=== PATIENT | male | born 1940 | race Caucasian/White ===

== ENCOUNTER 2020-05-27 11:32 | Outpatient (REF) | payer MEDICARE, OTHER, SELFPAY ==
[2020-05-27 13:52] LABS: MANUAL DIFF FLAG NO
[2020-05-27 13:57] LABS: Basophils Absolute Auto 0.1 X10*3/uL (0.0-0.2); Eosinophils Absolute Auto 0.2 X10*3/uL (0.0-0.4); Eosinophils Percent Auto 2.8 % (0-4); Hematocrit 42.4 % (42-52); Hemoglobin 13.7 g/dl (14.0-18.0); Imm Gran Abs Auto 0.03 X10*3/uL (0.00-0.03); Imm Gran Pct Auto 0.4 % (0.0-0.4); Lymphocytes Absolute Auto 1.9 X10*3/uL (1.2-4.9); Mean Corpuscular HGB Conc 32.3 g/dl (31.0-36.0); Mean Corpuscular Hemoglobin 29.7 pg (27.0-33.0); Mean Platelet Volume 11.9 fL (9.4-12.4); Monocytes Absolute Auto 0.6 X10*3/uL (0.1-1.2); Monocytes Percent Auto 7.7 % (2-11); Neutrophils Absolute Auto 5.4 X10*3/uL (2.0-8.3); Neutrophils Percent Auto 65.1 % (45-73); Platelet Count 263 X10*3/uL (160-400); Red Blood Count 4.61 X10*6/uL (4.60-5.80); Red Cell Distribution Width 12.9 % (11.0-16.0); White Blood Count 8.3 X10*3/uL (4.8-10.8)
[2020-05-27 14:27] LABS: Alanine Aminotransferase 9 U/L (0-40); Alkaline Phosphatase 52 U/L (39-117); Anion Gap 11 (12-20); Aspartate Amino Transferase 13 U/L (5-37); Bilirubin Total 0.6 mg/dL (0.0-1.0); Blood Urea Nitrogen 13 mg/dL (9-16); Calcium 8.8 mg/dL (8.4-10.2); Carbon Dioxide 29 mmol/L (22-29); Chloride 105 mmol/L (96-108); Estimated Glomerular Filt Rate > 60; Glucose Random 121 mg/dL (60-115); Potassium 3.9 mmol/l (3.3-5.1); Sodium 141 mmol/L (135-145); Total Protein 6.7 g/dL (6.5-8.0)
[2020-05-27 14:36] LABS: Free T4 (Free Thyroxine) 0.94 ng/dL (0.71-1.85)
[2020-05-27 14:44] LABS: Erythrocyte Sedimentation Rate 11 MM/HR (0-15)
== END 2020-05-27 11:33 | disposition home or self-care (01) ==
LOC: HO.10HDL 11:32
PROVIDERS: PCP Family Medicine; Visit Provider Family Medicine
DX: C61 Malignant neoplasm of prostate (principal); R41.0 Disorientation, unspecified; G62.9 Polyneuropathy, unspecified
CPT/HCPCS: 36415; 80053; 82550; 84439; 85025; 85652

== ENCOUNTER 2020-09-16 12:46 | Outpatient (REF) | payer MEDICARE, OTHER, SELFPAY ==
--- NOTE | ~2020-09-16 | MR_ITS ---
EXAMINATION: MR BRAIN WITHOUT CONTRAST CLINICAL INFORMATION: Confusion and tremors. COMPARISON: Head CT dated 09/28/2018. TECHNIQUE: Multiplanar, multisequence imaging of the brain was performed without contrast. FINDINGS: No diffusion abnormalities are identified to suggest an acute infarct. There is significant diffuse parenchymal volume loss with concordant ex vacuo dilatation of the ventricles. No evidence of hydrocephalus. No mass effect or midline shift is seen. The gradient refocused acquisition is normal. Extensive confluent T2 hyperintense signal changes are present throughout the cerebral white matter of both hemispheres, as on prior imaging. There are mild to moderate patchy areas of T2 hyperintense signal abnormality centrally in the sly. No extra-axial fluid collections are seen. The cerebellum is normal. The craniovertebral junction, marrow signal, and midline structures are normal. The major intracranial flow voids at the level of the [place] are preserved. The dural venous sinus flow voids are maintained. The mastoid air cells and paranasal sinuses are well aerated. Severe disc space narrowing and mild retrosubluxation partially visualized at the C3-C4 level. MR/MR head/brain wo con IMPRESSION: No acute intracranial process. Advanced chronic white matter disease and diffuse parenchymal volume loss with ex vacuo dilatation of the ventricles.
== END 2020-09-16 12:47 | disposition home or self-care (01) ==
LOC: HO.MRI 12:46
PROVIDERS: Visit Provider Family Medicine
DX: R27.0 Ataxia, unspecified (principal)
CPT/HCPCS: 70551

== ENCOUNTER 2020-12-11 12:10 | Outpatient (REF) | payer MEDICARE, OTHER, SELFPAY ==
[2020-12-11 13:24] LABS: Alanine Aminotransferase 9 U/L (0-40); Anion Gap 12 (12-20); Aspartate Amino Transferase 14 U/L (5-37); Blood Urea Nitrogen 11 mg/dL (9-16); Carbon Dioxide 29 mmol/L (22-29); Chloride 106 mmol/L (96-108); Estimated Glomerular Filt Rate > 60; Potassium 3.9 mmol/L (3.3-5.1); Sodium 143 mmol/L (135-145)
== END 2020-12-11 12:11 | disposition home or self-care (01) ==
LOC: HO.LAB 12:10
PROVIDERS: PCP Family Medicine; Visit Provider Family Medicine
DX: I10 Essential (primary) hypertension (principal); E78.00 Pure hypercholesterolemia, unspecified; Z79.899 Other long term (current) drug therapy
CPT/HCPCS: 36415; 80051; 82550; 82565; 84450; 84460; 84520

== ENCOUNTER 2021-03-20 12:01 | Outpatient (REF) | payer MEDICARE, OTHER, SELFPAY ==
[2021-03-20 14:23] LABS: Alanine Aminotransferase 13 U/L (0-40); Anion Gap 11 (12-20); Blood Urea Nitrogen 9 mg/dL (9-16); Carbon Dioxide 30 mmol/L (22-29); Chloride 106 mmol/L (96-108); Estimated Glomerular Filt Rate > 60; Potassium 4.1 mmol/L (3.3-5.1); Sodium 143 mmol/L (135-145)
== END 2021-03-20 12:02 | disposition home or self-care (01) ==
LOC: HO.10HDL 12:01
PROVIDERS: Visit Provider Family Medicine
DX: I10 Essential (primary) hypertension (principal); E78.00 Pure hypercholesterolemia, unspecified; Z79.899 Other long term (current) drug therapy
CPT/HCPCS: 36415; 80051; 82550; 82565; 84460; 84520

== ENCOUNTER 2021-08-24 12:15 | Outpatient (REF) | payer MEDICARE, OTHER, SELFPAY ==
[2021-08-24 13:31] LABS: MANUAL DIFF FLAG NO
[2021-08-24 13:44] LABS: Basophils Absolute Auto 0.1 X10*3/uL (0.0-0.2); Basophils Percent Auto 0.8 % (0-2); Eosinophils Absolute Auto 0.3 X10*3/uL (0.0-0.4); Eosinophils Percent Auto 2.5 % (0-4); Hematocrit 42.4 % (42.0-52.0); Hemoglobin 13.1 g/dl (14.0-18.0); Imm Gran Abs Auto 0.04 X10*3/uL (0.00-0.03); Imm Gran Pct Auto 0.4 % (0.0-0.4); Lymphocytes Percent Auto 17.9 % (20-40); Mean Corpuscular HGB Conc 30.9 g/dl (31.0-36.0); Mean Corpuscular Hemoglobin 28.1 pg (27.0-33.0); Mean Platelet Volume 12.1 fL (9.4-12.4); Monocytes Percent Auto 8.7 % (2-11); Neutrophils Absolute Auto 7.9 x10*3/uL (2.0-8.3); Neutrophils Percent Auto 69.7 % (45-73); Platelet Count 286 X10*3/uL (160-400); Red Blood Count 4.66 X10*6/uL (4.60-5.80); Red Cell Distribution Width 13.8 % (11.0-16.0); White Blood Count 11.3 X10*3/uL (4.8-10.8)
[2021-08-24 13:55] LABS: Anion Gap 12 (12-20); Blood Urea Nitrogen 12 mg/dL (9-16); Carbon Dioxide 28 mmol/L (22-29); Chloride 107 mmol/L (96-108); Estimated Glomerular Filt Rate > 60; Potassium 4.1 mmol/L (3.3-5.1); Sodium 143 mmol/L (135-145)
== END 2021-08-24 12:16 | disposition home or self-care (01) ==
LOC: HO.10HDL 12:15
PROVIDERS: Visit Provider Family Medicine
DX: I10 Essential (primary) hypertension (principal); R53.1 Weakness
CPT/HCPCS: 36415; 80051; 82565; 84520; 85025

== ENCOUNTER 2021-12-06 10:09 | Emergency (ER) | payer MEDICARE, OTHER, SELFPAY ==
--- NOTE | ~2021-12-06 | XR_ITS ---
EXAMINATION: XR CHEST CLINICAL INFORMATION: Weakness COMPARISON: 10/31/2017 TECHNIQUE: Frontal view of the chest was obtained. FINDINGS: Lungs are hypoinflated. Compared to the prior study, there are new scattered patchy opacities seen which may be secondary to multifocal subtle infiltrates or possibly atelectasis. Some of the findings are accentuated by the patient's hypoinflation. The heart is enlarged. No gross CHF. No pleural effusions. XR/XR chest 1V IMPRESSION: Peripheral inflated lungs with scattered patchy opacities as described above.
--- NOTE | ~2021-12-06 | CT_ITS ---
EXAMINATION: CT HEAD WITHOUT CONTRAST CLINICAL INFORMATION: Weakness COMPARISON: MR 09/16/2020. CT 09/28/2018. TECHNIQUE: Contiguous axial imaging was performed from the skull base to vertex without intravenous administration of contrast. This CT examination was performed using dose optimization techniques as appropriate, variously including the following: *Automated exposure control *Adjustment of mA and/or kV according to patient size (this includes techniques or standardized protocols for targeted exams where dose is matched to indication/reason for exam; i.e. extremities or head) *Use of iterative reconstruction technique DLP: 1314 mGy-cm FINDINGS: Chronic symmetric prominence of the ventricles and sulcal spaces. No mass effect or shift of midline structures. 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 No evidence of acute territorial infarction. No acute hemorrhage. No abnormal intra or extra-axial collection. Atherosclerotic peripheral vascular disease. No acute fracture. The paranasal sinuses and mastoid air cells are clear. CT/CT head/brain wo con IMPRESSION: No acute intracranial pathology.
[2021-12-06 10:28] VITALS: BP 152/92; PULSE 72; PULSE 76; RESP 16; TEMP 36.2; O2SAT 97; O2SAT 98; BMI 30.8
[2021-12-06 11:04] VITALS: BP 165/75; PULSE 63; RESP 12; O2SAT 95
--- NOTE | 2021-12-06 11:19 | ECG_ITS ---
Test Reason : WEAKNESS Blood Pressure : / mmHG Vent. Rate : 057 BPM Atrial Rate : 057 BPM P-R Int : 402 ms QRS Dur : 106 ms QT Int : 450 ms P-R-T Axes : -01 -36 022 degrees QTc Int : 438 ms Sinus bradycardia with 1st degree A-V block Left axis deviation Nonspecific ST and T wave abnormality Abnormal ECG When compared with ECG of 10-NOV-2018 10:30, MA interval has increased Vent. rate has decreased BY 28 BPM Referred By: Luna Nelson Electronically Signed By:CRAIG HARMAN
--- NOTE | 2021-12-06 11:28 | ED.GENADULT ---
HPI - General Adult General Chief complaint: General Medical Stated complaint: FALL FROM LOSS OF BAL,UNABLE TO GET UP PER Time Seen by Provider: 12/06/21 11:11 Source: family and EMS Mode of arrival: EMS Limitations: altered mental status History of Present Illness HPI narrative: 81-year-old male with a history of dementia here with reports of progressive weakness over the last 1 week. Patient had 2 slips out of his recliner today and the was unable to get him back into bed requiring lift assist. She denies any recent fevers, chills, cough, vomiting, diarrhea, chest pain or shortness of breath. Patient is at his mental status baseline. Radha is seeking possible short-term rehab placement Related Data Home Medications Medication Instructions Recorded Confirmed aspirin 81 mg tablet,delayed 81 mg PO DAILY 12/06/21 12/06/21 release cyanocobalamin (vitamin B-12) 1,000 mcg PO DAILY 12/06/21 12/06/21 1,000 mcg tablet donepezil 5 mg tablet 1 tab PO DAILY@1900 12/06/21 12/06/21 famotidine 40 mg tablet 1 tab PO BEDTIME 12/06/21 12/06/21 losartan 50 mg tablet 1 tab PO DAILY 12/06/21 12/06/21 metoprolol succinate 50 mg 1 tab PO DAILY 12/06/21 12/06/21 tablet,extended release 24 hr quetiapine 25 mg tablet 1 tab PO DAILY@0900,1600 12/06/21 12/06/21 simvastatin 40 mg tablet 1 tab PO DAILY 12/06/21 12/06/21 Allergies Allergy/AdvReac Type Severity Reaction Status Date / Time No Known Allergies Allergy Unverified 02/28/20 15:20 [No Known Allergies*] Review of Systems Review of Systems: Yes all other systems are reviewed and are negative Constitutional: Constitutional: Reports no additional constitutional complaints, Denies body ache(s), Denies chills, Denies fever(s), Denies headache(s) and Reports weakness Eyes: Eyes: Reports no additional eye complaints and Denies change in vision ENT: Reports system reviewed and no additional complaints, except as documented, Denies dizziness, Denies headache(s), Denies nasal congestion, Denies nasal discharge and Denies neck pain Cardiovascular: Cardiovascular: Reports no additional cardiovascular complaints, Denies chest pain, Denies leg edema and Denies dyspnea Respiratory: Respiratory: Reports no additional respiratory complaints, Denies cough and Denies dyspnea Gastrointestinal: Gastrointestinal: Reports no additional gastrointestinal complaints, Denies abdominal pain, Denies diarrhea, Denies nausea and Denies vomiting Genitourinary: Genitourinary: Denies urinary incontinence Musculoskeletal: Musculoskeletal: Reports no additional musculoskeletal complaints, Denies back pain, Denies arthralgias, Denies joint swelling, Denies neck pain, Denies numbness and Denies tingling Integumentary/Breasts: Skin/Breast: Reports system reviewed and no additional complaints, except as docu and Denies rash Neurologic: Reports system reviewed and no additional complaints, except as documented, Reports confusion, Denies dizziness, Denies headache(s), Denies numbness, Denies tingling and Reports weakness Psychiatric: Psychiatric: Reports confusion PMFSH Past Medical History Attestation statement: The following information was validated with the patient. Source: old records reviewed and nursing notes reviewed Social History Social History Advance Directives: Yes Advance Directives Information Provided: No Advance Directives on File: No Physical Exam ED Vital Signs: Vital Signs - 24 hr 12/07/21 08:04 12/07/21 09:43 12/07/21 10:48 Temperature 97.1 F 97.7 F Pulse Rate 54 42 L 45 L Respiratory Rate 18 16 Blood Pressure 130/93 H 130/59 L 153/76 H Pulse Oximetry 92 96 91 L Oxygen Delivery Method Room Air Room Air Room Air 12/07/21 15:55 12/07/21 20:04 12/07/21 22:18 Temperature 97.8 F 98.6 F 98.9 F Pulse Rate 55 61 64 Respiratory Rate 16 20 16 Blood Pressure 124/69 158/88 H 151/60 H Pulse Oximetry 96 94 95 Oxygen Delivery Method Room Air Room Air Room Air 12/08/21 05:26 12/08/21 07:19 Temperature 98 F 97.7 F Pulse Rate 86 76 Respiratory Rate 20 Blood Pressure 121/101 H Pulse Oximetry 96 97 Oxygen Delivery Method Room Air Room Air BMI result Body Mass Index 30.8 Const General: cooperative, healthy appearing, comfortable, alert and confusion Orientation/consciousness: oriented to person, oriented to place and confusion Limitations: altered mental status [facility] Head: Yes normal to inspection Ears: hearing grossly normal bilaterally Eyes General: appearance normal, both eyes and all related structures Pupils: Equal, round and reactive pupils present Neck Neck: Yes normal visual inspection, Yes full ROM and Yes no lymphadenopathy Chest Chest palpation & inspection: normal inspection of the chest Resp Effort & Inspection: normal respiratory effort Auscultation: clear to auscultation bilaterally Cardio Rate: regular rate Rhythm: regular rhythm Peripheral pulses: Peripheral pulses 2+ throughout GI Inspection: Yes normal to inspection Palpation (GI): Soft to palpation and nontender Back/Spine/Pelvis Thoracic/Lumbar Spine: thoracic and lumbar spine normal to inspection Skin General skin exam: no rashes or lesions noted Neuro General: oriented to person, oriented to place, confusion and Unable to assess gait Cranial nerves: Yes CN's II-XII intact bilaterally, Yes Equal, round and reactive pupils present, Yes Bilaterally intact EOM present, Yes Nystagmus not present, Yes Normal facial strength present and Yes Midline tongue present Cognition (Neuro): normal cognition Gait exam (Neuro): Unable to assess gait Motor exam (neuro): 5/5 motor strength present throughout Sensory Exam: Normal double simultaneous stimulation for sensation Extrem General: Yes normal to inspection Course Course Course Narrative: 1600-labs showed no acute finding. UA is negative for infection. Chest x-ray shows increased bronchial markings consistent with mild interstitial edema versus pneumonitis. Patient has no reports of shortness of breath, cough, fever. No leg swelling or leg pain. His vitals are stable. His CT of his brain shows some atrophy otherwise there is no acute abnormality. Medications were reconciled. Patient's does not feel like she can care for him at home and she is requesting physical therapy evaluation, case management involvement and possible short-term rehab placement. Consult or place. Patient was placed in physician observation pending disposition Medical Decision Making MDM Narrative Medical decision making narrative: 81 yo male here with generalized weakness progressive over the last week w/ concern inability to care for him at home. Normal neuro exam. No overt deficits. Vitals are stable. Will check labs, chest x-ray, EKG, UA, CT head Medical Records Medical records reviewed: Yes I reviewed the patient's medical records. Lab Data Lab results reviewed: Yes I reviewed the patient's lab results. Result diagrams: 12/06/21 12:01 12/06/21 12:02 Labs: Lab Results 12/06/21 12/06/21 12/06/21 Range/Units 11:54 11:56 12:01 WBC 10.8 (4.8-10.8) X10*3/uL RBC 4.56 L (4.60-5.80) X10*6/uL Hgb 13.1 L (14.0-18.0) g/dl Hct 40.6 L (42.0-52.0) % MCV 89.0 (80.0-98.0) fL MCH 28.7 (27.0-33.0) pg MCHC 32.3 (31.0-36.0) g/dl RDW 13.4 (11.0-16.0) % Plt Count 215 (160-400) X10*3/uL MPV 11.2 (9.4-12.4) fL Immature Gran % (Auto) 0.3 (0.0-0.4) % Neut % (Auto) 74.4 H (45-73) % Lymph % (Auto) 13.9 L (20-40) % [place] % (Auto) 8.4 (2-11) % Eos % (Auto) 2.4 (0-4) % Baso % (Auto) 0.6 (0-2) % Lymph # (Auto) 1.5 (1.2-4.9) X10*3/uL [place] # (Auto) 0.9 (0.1-1.2) X10*3/uL Eos # (Auto) 0.3 (0.0-0.4) X10*3/uL Baso # (Auto) 0.1 (0.0-0.2) X10*3/uL Abs Immat Gran (auto) 0.03 (0.00-0.03) X10*3/uL Absolute Neuts (auto) 8.0 (2.0-8.3) x10*3/uL Absolute Nucleated RBC 0.000 (0.0-0.012) X10*3/uL Nucleated RBC % (auto) 0.0 (0.0-0.2) /100WBC Sodium (135-145) mmol/L Potassium (3.3-5.1) mmol/L Chloride (96-108) mmol/L Carbon Dioxide (22-29) mmol/L Anion Gap (12-20) BUN (9-16) mg/dL Creatinine (0.5-1.4) mg/dL Estim Creat Clear Calc Estimated GFR Random Glucose (60-115) mg/dL Calcium (8.4-10.2) mg/dL Magnesium (1.6-2.6) mg/dL Total Bilirubin (0.0-1.0) mg/dL Direct Bilirubin (0.0-0.5) mg/dL AST (5-37) U/L ALT (0-40) U/L Alkaline Phosphatase (39-117) U/L Troponin I High Sens (<3.5-35.0) ng/L Total Protein (6.5-8.0) g/dL Albumin (3.5-5.0) g/dL Urine Color YELLOW Urine Appearance CLEAR Urine pH 6.0 (5.0-8.0) Ur Specific [place] 1.010 (1.005-1.025) Urine Protein NEG (NEG-TRACE) MG/DL Urine Glucose (UA) NEG (NEG) MG/DL Urine Ketones NEG (NEG) MG/DL Urine Blood NEG (NEG) Urine Nitrite NEG (NEG) Ur Leukocyte Esterase NEG (NEG) COVID-19 (MENG) Negative (Negative) COVID-19 Clin Com See Note 12/06/21 12/06/21 Range/Units 12:01 12:02 WBC (4.8-10.8) X10*3/uL RBC (4.60-5.80) X10*6/uL Hgb (14.0-18.0) g/dl Hct (42.0-52.0) % MCV (80.0-98.0) fL MCH (27.0-33.0) pg MCHC (31.0-36.0) g/dl RDW (11.0-16.0) % Plt Count (160-400) X10*3/uL MPV (9.4-12.4) fL Immature Gran % (Auto) (0.0-0.4) % Neut % (Auto) (45-73) % Lymph % (Auto) (20-40) % [place] % (Auto) (2-11) % Eos % (Auto) (0-4) % Baso % (Auto) (0-2) % Lymph # (Auto) (1.2-4.9) X10*3/uL [place] # (Auto) (0.1-1.2) X10*3/uL Eos # (Auto) (0.0-0.4) X10*3/uL Baso # (Auto) (0.0-0.2) X10*3/uL Abs Immat Gran (auto) (0.00-0.03) X10*3/uL Absolute Neuts (auto) (2.0-8.3) x10*3/uL Absolute Nucleated RBC (0.0-0.012) X10*3/uL Nucleated RBC % (auto) (0.0-0.2) /100WBC Sodium 142 (135-145) mmol/L Potassium 3.9 (3.3-5.1) mmol/L Chloride 106 (96-108) mmol/L Carbon Dioxide 29 (22-29) mmol/L Anion Gap 11 L (12-20) BUN 10 (9-16) mg/dL Creatinine 0.78 (0.5-1.4) mg/dL Estim Creat Clear Calc 96.9 Estimated GFR > 60 Random Glucose 90 (60-115) mg/dL Calcium 8.7 (8.4-10.2) mg/dL Magnesium 2.1 (1.6-2.6) mg/dL Total Bilirubin 0.6 (0.0-1.0) mg/dL Direct Bilirubin 0.3 (0.0-0.5) mg/dL AST 10 (5-37) U/L ALT 12 (0-40) U/L Alkaline Phosphatase 58 (39-117) U/L Troponin I High Sens 6.5 (<3.5-35.0) ng/L Total Protein 6.3 L (6.5-8.0) g/dL Albumin 3.7 (3.5-5.0) g/dL Urine Color Urine Appearance Urine pH (5.0-8.0) Ur Specific [place] (1.005-1.025) Urine Protein (NEG-TRACE) MG/DL Urine Glucose (UA) (NEG) MG/DL Urine Ketones (NEG) MG/DL Urine Blood (NEG) Urine Nitrite (NEG) Ur Leukocyte Esterase (NEG) COVID-19 (MENG) (Negative) COVID-19 Clin Com ECG Data Attestation: I personally reviewed and interpreted this ECG as follows: Interpretation: Sinus bradycardia with first-degree AV block, rate of 57, normal QRS, normal QT Discharge Plan Discharge Clinical Impression: Weakness Patient Disposition: Still a Patient Prescriptions: No Action losartan 50 mg tablet 1 tab PO DAILY quetiapine 25 mg tablet 1 tab PO DAILY@0900,1600 donepezil 5 mg tablet 1 tab PO DAILY@1900 metoprolol succinate 50 mg tablet extended release 24 hr 1 tab PO DAILY famotidine 40 mg tablet 1 tab PO BEDTIME simvastatin 40 mg tablet 1 tab PO DAILY cyanocobalamin (vitamin B-12) 1,000 mcg Tablet 1,000 mcg PO DAILY aspirin 81 mg Tablet,Delayed Release (Dr/Ec) 81 mg PO DAILY
[2021-12-06 12:07] LABS: MANUAL DIFF FLAG NO
[2021-12-06 12:08] VITALS: BP 176/79; PULSE 59; RESP 12
[2021-12-06 12:08] LABS: Appearance Urine CLEAR; Color Urine YELLOW; Glucose Urine UA NEG (NEG); Leukocyte Esterase Urine NEG (NEG); Nitrite Urine NEG (NEG); Urine Blood NEG (NEG); Urine Ketones NEG (NEG); Urine Protein NEG (NEG-TRACE)
[2021-12-06 12:08] LABS: Basophils Absolute Auto 0.1 X10*3/uL (0.0-0.2); Basophils Percent Auto 0.6 % (0-2); Eosinophils Absolute Auto 0.3 X10*3/uL (0.0-0.4); Eosinophils Percent Auto 2.4 % (0-4); Hematocrit 40.6 % (42.0-52.0); Hemoglobin 13.1 g/dl (14.0-18.0); Imm Gran Abs Auto 0.03 X10*3/uL (0.00-0.03); Imm Gran Pct Auto 0.3 % (0.0-0.4); Lymphocytes Absolute Auto 1.5 X10*3/uL (1.2-4.9); Lymphocytes Percent Auto 13.9 % (20-40); Mean Corpuscular HGB Conc 32.3 g/dl (31.0-36.0); Mean Corpuscular Hemoglobin 28.7 pg (27.0-33.0); Mean Platelet Volume 11.2 fL (9.4-12.4); Monocytes Absolute Auto 0.9 X10*3/uL (0.1-1.2); Monocytes Percent Auto 8.4 % (2-11); Neutrophils Percent Auto 74.4 % (45-73); Platelet Count 215 X10*3/uL (160-400); Red Blood Count 4.56 X10*6/uL (4.60-5.80); Red Cell Distribution Width 13.4 % (11.0-16.0); White Blood Count 10.8 X10*3/uL (4.8-10.8)
[2021-12-06 12:25] LABS: Alanine Aminotransferase 12 U/L (0-40); Albumin Level 3.7 g/dL (3.5-5.0); Alkaline Phosphatase 58 U/L (39-117); Anion Gap 11 (12-20); Aspartate Amino Transferase 10 U/L (5-37); Bilirubin Direct 0.3 mg/dL (0.0-0.5); Bilirubin Total 0.6 mg/dL (0.0-1.0); Blood Urea Nitrogen 10 mg/dL (9-16); Calcium 8.7 mg/dL (8.4-10.2); Carbon Dioxide 29 mmol/L (22-29); Chloride 106 mmol/L (96-108); Creatinine Clr Calc Pharmacy 96.9; Estimated Glomerular Filt Rate > 60; Glucose Random 90 mg/dL (60-115); Magnesium 2.1 mg/dL (1.6-2.6); Potassium 3.9 mmol/L (3.3-5.1); Sodium 142 mmol/L (135-145); Total Protein 6.3 g/dL (6.5-8.0)
[2021-12-06 12:27] LABS: COVID-19 Test Negative (Negative); IDNOW Serial# 16C4AD1C
[2021-12-06 12:31] LABS: Troponin-I High Sensitivity 6.5 ng/L (<3.5-35.0)
--- NOTE | 2021-12-06 14:14 | PHA.MEDREC ---
Pharmacy Consult ? Medication Reconciliation Pharmacy has completed the medication reconciliation. PT's at bedtime with medication list, made me aware of specific times she gives the pt meds.
[2021-12-06 15:36] VITALS: BP 169/81; PULSE 70; RESP 16; TEMP 36.4; O2SAT 94
--- NOTE | 2021-12-06 15:48 | MHC.CM.ED ---
Received case management consult from Luna RAMOS. Patient came to the ER due to a fall. Work up essentially negative. Physical therapy eval is pending at this time. Patient has a history of dementia. Attempted to meet with patient and . just left the ER. Patient's son Neri is currently bedside. PCP verified. Copy of HCP verified to be on file. Patient's is 1st proxy. Patient's son Cristhian is 2nd. However, Cristhian has . Patient has received 4 Moderna vaccines. T/W explained physical therapy eval would not be available until tomorrow. List of facilities within 10 miles of patient's home. Neri will provide this list to his mother and provide 2 facility choices to case management. Continue to monitor for d/c needs.
[2021-12-06] MEDS: QUEtiapine Fumarate 25 MG TABLET PO (16:08)
--- NOTE | 2021-12-06 16:08 | PC.NURSE ---
Pt becoming agitated with staff and family. Refusing assistance and attempting to leave bed, unable to redirect. Pt ambulated back to bed with staff assist, becoming more redirectable, still agitated but resting comfortable with no apparent distress.
[2021-12-06] MEDS: Donepezil HCl 5 MG TABLET PO (19:03)
[2021-12-06 23:21] VITALS: BP 175/84; PULSE 62; RESP 16; TEMP 37.1; O2SAT 97
[2021-12-06] MEDS: Famotidine 20 MG TABLET 40 MG PO (23:46)
[2021-12-07] VITALS (9 sets, daily range): BP systolic 124–166; BP diastolic 59–93; PULSE 42–70; RESP 16–20; TEMP 36.2–37.2; O2SAT 91–96
[2021-12-07] MEDS: OLANZapine 5 MG TABLET PO (00:20)
--- NOTE | 2021-12-07 01:43 | PC.NURSE ---
PT INCONTINENT OF URINE AND SMALL AMOUNT OF STOOL. PT CLEANED AND BEDDING CHANGED. RN AWARE
[2021-12-07] MEDS: Metoprolol Succinate ER 50 MG TAB.ER.24H PO (09:46)
[2021-12-07] MEDS: Cyanocobalamin (Vitamin B-12) 1,000 MCG TABLET 1000 MCG PO (09:46)
[2021-12-07] MEDS: Aspirin Enteric Coated 81 MG TABLET.DR PO (09:46)
[2021-12-07] MEDS: Losartan Potassium 50 MG TABLET PO (09:46)
[2021-12-07] MEDS: Atorvastatin Calcium 20 MG TABLET PO (09:46)
[2021-12-07] MEDS: QUEtiapine Fumarate 25 MG TABLET PO (09:49)
--- NOTE | 2021-12-07 11:09 | MHC.CM.ED ---
Addendum entered by Bozena Denise 12/07/21 14:09: Pt has been accepted by [facility] for a 12/08 transfer date. Pt and spouse updated and accepted offer. Pt to board in ED tonight pending transfer tomorrow. ED care team updated Original Note: PT eval recommending [facility]. Informed pt who states he is unfamiliar with [facility]. Call placed to pt's spouse to inquire on choices. She would like [facility] but is open to other [place] facilities if needed. Broad referrals placed - waiting for acceptance
--- NOTE | 2021-12-07 15:57 | PC.NURSE ---
UPON ROUNDING PATIENT WAS INC OF URINE ,BED BATH GIVEN ,BEGGING CHANGE ,PATIENT CONTINUE TO SLEEP .
--- NOTE | 2021-12-07 16:34 | PC.NURSE ---
patient had a medium bowel movement ,care given ,[place] catheter in place .
--- NOTE | 2021-12-07 17:01 | MHC.CM.ED ---
[facility] will accept pt for 12/08 at 1 pm. BLS booked for 1pm with [facility]. [facility] and CM/ED worksheet on chart. , RN and MD aware. CM to follow for d/c needs.
--- NOTE | 2021-12-07 17:55 | PC.NURSE ---
Pt is very somnolent. Evening seroquil held.
--- NOTE | 2021-12-07 18:55 | PC.NURSE ---
Addendum entered by Augusta Sanchez 12/08/21 07:01: report given to MORELIA Mills Addendum entered by Augusta Sanchez 12/07/21 20:01: pt resting in bed. alert and oriented to self. no signs of acute distress notice. breathing equally unlabored Original Note: report received from MORELIA Jung.
--- NOTE | 2021-12-07 19:24 | PC.NURSE ---
patient was a 1:1 feed ate 50 % of meal ,drank 240 ml milk .
--- NOTE | 2021-12-07 19:45 | PC.NURSE ---
PATIENT IS AWAKE VERY RESTLESS AT THIS TIME ,RN AWARE .
[2021-12-07] MEDS: Famotidine 20 MG TABLET 40 MG PO (20:09)
[2021-12-07] MEDS: Donepezil HCl 5 MG TABLET PO (20:09)
--- NOTE | 2021-12-07 22:06 | PC.NURSE ---
Pt found in bed incontinent of urine with [place] catheter removed and on the floor. Pt cleaned with linens and peter changed. Pt resting comfortably at this time time with no complaints. Pt is oriented to person and place.
--- NOTE | 2021-12-07 22:19 | PC.NURSE ---
PATIENT HAD A [place] CAT IN PLACE PATIENT REMOVE IT ,WAS INC OF URINE CARE GIVEN ,PATIENT NOW RESTING AND WATCHING TELEVISION .
[2021-12-08] MEDS: QUEtiapine Fumarate 25 MG TABLET PO ×2 (02:10→07:45)
[2021-12-08 05:26] VITALS: BP 121/101; PULSE 86; RESP 20; TEMP 36.6; O2SAT 96
[2021-12-08 07:19] VITALS: PULSE 76; TEMP 36.5; O2SAT 97
[2021-12-08] MEDS: OLANZapine 5 MG TABLET 2.5 MG PO (07:30)
--- NOTE | 2021-12-08 07:31 | PC.NURSE ---
Offered breakfast and pt declined. Pt remains confused but redirectable.
[2021-12-08] MEDS: Atorvastatin Calcium 20 MG TABLET PO (07:34)
[2021-12-08] MEDS: Metoprolol Succinate ER 50 MG TAB.ER.24H PO (07:35)
[2021-12-08] MEDS: Cyanocobalamin (Vitamin B-12) 1,000 MCG TABLET 1000 MCG PO (07:35)
[2021-12-08] MEDS: Losartan Potassium 50 MG TABLET PO (07:36)
--- NOTE | 2021-12-08 11:04 | MHC.CM.ED ---
Patient remains in ER. Patient will transfer to [facility] via BLS at 1pm. Patient, , Lina THIBODEAUX and Dr Angela castaneda. Continue to monitor for d/c needs.
--- NOTE | 2021-12-08 12:57 | PC.NURSE ---
attempted to call DORINA RN to call this RN back
== END 2021-12-08 13:01 | disposition skilled nursing facility (03) ==
PROVIDERS: Nurse Practitioner Family; Emergency Provider Emergency Medicine Emergency Medical Services; PCP Family Medicine
DX: R53.1 Weakness (principal); R45.1 Restlessness and agitation; F03.90 Unspecified dementia, unspecified severity, without behavioral disturbance, psychotic disturbance, mood disturbance, and anxiety; Z79.899 Other long term (current) drug therapy; Z20.822 Contact with and (suspected) exposure to COVID-19
CPT/HCPCS: 70450; 71045; 80048; 80076; 81003; 83735; 84484; 85025; 87635; 93005; 97162; 99284; 99285

== ENCOUNTER 2022-04-25 05:00 | Emergency (ER) | payer MEDICARE, OTHER, SELFPAY ==
--- NOTE | ~2022-04-25 | CT_ITS ---
EXAMINATION: CT OF THE HEAD WITHOUT CONTRAST CT OF THE CERVICAL SPINE WITHOUT CONTRAST CLINICAL INFORMATION: Unwitnessed fall. COMPARISON: CT scan of the head dated 12/06/2021. TECHNIQUE: Contiguous axial imaging was performed from the skullbase to vertex without intravenous administration of contrast. Coronal reformations of the head were obtained. Contiguous axial imaging was then performed from the skull base down to the thoracic inlet. Coronal and sagittal reformations of the cervical spine were obtained. This CT examination was performed using dose optimization techniques as appropriate, variously including the following: *Automated exposure control *Adjustment of mA and/or kV according to patient size (this includes techniques or standardized protocols for targeted exams where dose is matched to indication/reason for exam; i.e. extremities or head) *Use of iterative reconstruction technique DLP: 1364.66 mGy-cm. FINDINGS: CT scan of the head: Evaluation is significantly limited by beam hardening and motion artifact. In this setting, significant findings may be missed. There is no definite evidence of acute intracranial hemorrhage or territorial infarction. No abnormal mass-effect or midline shift is seen. Ward to white matter differentiation is well preserved. No extra-axial fluid collections are identified. The ventricles and sulci are enlarged. There is extensive periventricular and deep white matter low-attenuation seen, consistent with ischemic small vessel disease. Prominent hypodensity is seen in the syl, likely artifactual, though subtle infarct is difficult to exclude. The osseous structures and soft tissues are normal. The mastoid air cells and visualized portions of the paranasal sinuses are well-aerated. CT scan of the cervical spine: Evaluation is significantly limited by beam hardening and motion artifact. In this setting, significant findings may be missed. Normal alignment is seen with no evidence of acute fracture or dislocation. Craniocervical junction and atlantoaxial articulations are intact. Prevertebral soft tissues are normal in thickness. There is severe degenerative disc disease at C3-C4 with grade 1 retrolisthesis of C3 on C4. There is also severe degenerative disc disease with near complete loss of the disc space height at C6-C7 with small posterior disc osteophyte complex seen projecting into the thecal sac. The included soft tissues of the neck and lung apices are unremarkable. CT/CT cervical spine wo IV con IMPRESSION: HEAD: 1. Significantly limited exam due to beam hardening and motion artifact. In this setting, significant findings may be missed. 2. No definite acute intracranial pathology. 3. Extensive periventricular and deep white matter low-attenuation, consistent with ischemic small vessel disease. Prominent hypodensity is seen in the sly, likely artifactual, though subtle infarct is difficult to exclude. CERVICAL SPINE: 1. Significantly limited exam as discussed above. 2. No definite evidence of cervical spine fracture or malalignment. 3. Severe degenerative disc disease at C3-C4 and C6-C7.
[2022-04-25 05:05] VITALS: BP 168/80; PULSE 54; O2SAT 98
[2022-04-25 05:24] VITALS: BP 166/69; PULSE 82; RESP 19; TEMP 36.4; O2SAT 99; BMI 30.4
--- NOTE | 2022-04-25 05:30 | PC.NURSE ---
pt is aware he is in a hospital, date of , name, not aware of current year. pt follows commands, calm and cooperative. pt hand grasp equal rocio, moves extremities to commands equally strong.
--- NOTE | 2022-04-25 05:33 | ECG_ITS ---
Test Reason : FALL Blood Pressure : / mmHG Vent. Rate : 055 BPM Atrial Rate : 055 BPM P-R Int : 350 ms QRS Dur : 098 ms QT Int : 446 ms P-R-T Axes : 000 -36 016 degrees QTc Int : 426 ms Sinus bradycardia with 1st degree A-V block Left anterior fascicular block Nonspecific ST and T wave abnormality Abnormal ECG When compared with ECG of 06-DEC-2021 11:57, No significant change was found Referred By: Generic ED Physician Electronically Signed By:FERCHO GUPTA MD
--- NOTE | 2022-04-25 05:48 | ED.FALL ---
HPI - Fall General Chief Complaint: Fall Stated Complaint: fall Time Seen by Provider: 04/25/22 05:45 Source: patient and EMS Mode of arrival: EMS History of Present Illness HPI Narrative: 81-year-old male is brought in by EMS for unwitnessed fall approximately 1 hour prior to arrival. As per EMS patient is talking at his baseline with history of dementia. Patient states he did not fall but is unable to recall the name of the current president. He denies pain in his neck, head and denies any shortness of breath or chest pain. Patient is not on blood thinners. Related Data Home Medications Medication Instructions Recorded Confirmed aspirin 81 mg tablet,delayed 81 mg PO DAILY 12/06/21 12/06/21 release cyanocobalamin (vitamin B-12) 1,000 mcg PO DAILY 12/06/21 12/06/21 1,000 mcg tablet donepezil 5 mg tablet 1 tab PO DAILY@1900 12/06/21 12/06/21 famotidine 40 mg tablet 1 tab PO BEDTIME 12/06/21 12/06/21 losartan 50 mg tablet 1 tab PO DAILY 12/06/21 12/06/21 metoprolol succinate 50 mg 1 tab PO DAILY 12/06/21 12/06/21 tablet,extended release 24 hr quetiapine 25 mg tablet 1 tab PO DAILY@0900,1600 12/06/21 12/06/21 simvastatin 40 mg tablet 1 tab PO DAILY 12/06/21 12/06/21 Allergies Allergy/AdvReac Type Severity Reaction Status Date / Time No Known Allergies Allergy Unverified 02/28/20 15:20 [No Known Allergies*] Review of Systems Review of Systems: Pertinent positives and negatives as stated in HPI 10 point review of systems is otherwise negative. [facility] Past Medical History Source: nursing notes reviewed Social History Social History Advance Directives: No Physical Exam Vital Signs: Vital Signs: Last Vital Signs Temp 97.9 F 04/25/22 06:15 Pulse 70 04/25/22 06:15 Resp 22 H 04/25/22 06:15 BP 139/69 04/25/22 06:15 Pulse Ox 95 04/25/22 06:15 O2 Del Method 04/25/22 06:15 BMI result Body Mass Index 30.4 VITAL SIGNS: Reviewed. GENERAL: Well developed, well nourished, in no acute distress. HEAD: Normocephalic/atraumatic EYES: PERRLA, EOMI EARS: Ext canals without abnormality NOSE: Nares patent bilateral OROPHARYNX: no oral lesions noted, posterior pharynx clear NECK: Supple, no adenopathy, no midline cervical spine tenderness LUNGS: Normal breath sounds. No adventitious sounds or accessory muscle use. SpO2<95> CARDIOVASCULAR: Regular rate and rhythm without noted murmurs, no JVD or lower extremity edema. ABDOMEN: Soft, non-tender, non-distended with bowel sounds. MUSCULOSKELETAL: No tenderness, deformities, or effusions noted on gross inspection. EXTREMITIES: No cyanosis, clubbing or edema. SKIN: Inspection of the skin reveals no rashes NEUROLOGIC: Alert and oriented x 2. Strength and sensation to light touch were grossly intact x 4. Course Course Course Narrative: 81-year-old male with history and clinical presentation consistent with mechanical fall not on blood thinners, review of current results negative for acute findings to better did explain patient's fall. Chemistries and serology are pending as well as CT scan which will be signed out to Dr. Trevino [facility] - Fall Lab Data Result diagrams: 04/25/22 06:24 04/25/22 06:24 Labs: Lab Results 04/25/22 04/25/22 Range/Units 06:20 06:24 WBC 10.2 (4.8-10.8) X10*3/uL RBC 4.30 L (4.60-5.80) X10*6/uL Hgb 12.9 L (14.0-18.0) g/dl Hct 39.2 L (42.0-52.0) % MCV 91.2 (80.0-98.0) fL MCH 30.0 (27.0-33.0) pg MCHC 32.9 (31.0-36.0) g/dl RDW 12.8 (11.0-16.0) % Plt Count 203 (160-400) X10*3/uL MPV 11.7 (9.4-12.4) fL Immature Gran % (Auto) 0.4 (0.0-0.4) % Neut % (Auto) 67.1 (45-73) % Lymph % (Auto) 20.3 (20-40) % [place] % (Auto) 8.9 (2-11) % Eos % (Auto) 2.5 (0-4) % Baso % (Auto) 0.8 (0-2) % Lymph # (Auto) 2.1 (1.2-4.9) X10*3/uL [place] # (Auto) 0.9 (0.1-1.2) X10*3/uL Eos # (Auto) 0.3 (0.0-0.4) X10*3/uL Baso # (Auto) 0.1 (0.0-0.2) X10*3/uL Abs Immat Gran (auto) 0.04 H (0.00-0.03) X10*3/uL Absolute Neuts (auto) 6.8 (2.0-8.3) x10*3/uL Absolute Nucleated RBC 0.000 (0.0-0.012) X10*3/uL Nucleated RBC % (auto) 0.0 (0.0-0.2) /100WBC Urine Color Yellow Urine Appearance Clear Urine pH 7.0 (5.0-9.0) Ur Specific [place] 1.015 (1.005-1.025) Urine Protein Negative (Neg-Trace) mg/dL Urine Glucose (UA) Negative (Negative) mg/dL Urine Ketones Negative (Negative) mg/dL Urine Blood Negative (Negative) Urine Nitrite Negative (Negative) Ur Leukocyte Esterase Negative (Negative) ECG Data Attestation: I personally reviewed and interpreted this ECG as follows: Prior ECG tracings: available for review Interpretation: Sinus bradycardia with first-degree AV block (the latter is not new), HR-5 5, no STEMI, DE-350, QRS and QTC are within normal limits. Discharge Plan Discharge Clinical Impression: Fall Patient Disposition: Xfer SNF Instructions: Fall Prevention for Older Adults (ED) Additional Instructions: 1. Resume all home medications as prescribed. 2. Follow-up with your primary care provider Tuesday morning. Return to the ER for worsening symptoms. Prescriptions: No Action losartan 50 mg tablet 1 tab PO DAILY quetiapine 25 mg tablet 1 tab PO DAILY@0900,1600 donepezil 5 mg tablet 1 tab PO DAILY@1900 metoprolol succinate 50 mg tablet extended release 24 hr 1 tab PO DAILY famotidine 40 mg tablet 1 tab PO BEDTIME simvastatin 40 mg tablet 1 tab PO DAILY cyanocobalamin (vitamin B-12) 1,000 mcg Tablet 1,000 mcg PO DAILY aspirin 81 mg Tablet,Delayed Release (Dr/Ec) 81 mg PO DAILY Referrals: Talia Granger MD [Primary Care Provider] -
[2022-04-25 06:15] VITALS: BP 139/69; PULSE 70; RESP 22; TEMP 36.6; O2SAT 95
[2022-04-25 06:29] LABS: MANUAL DIFF FLAG NO
[2022-04-25 06:30] LABS: Basophils Absolute Auto 0.1 X10*3/uL (0.0-0.2); Basophils Percent Auto 0.8 % (0-2); Eosinophils Absolute Auto 0.3 X10*3/uL (0.0-0.4); Eosinophils Percent Auto 2.5 % (0-4); Hematocrit 39.2 % (42.0-52.0); Hemoglobin 12.9 g/dl (14.0-18.0); Imm Gran Abs Auto 0.04 X10*3/uL (0.00-0.03); Imm Gran Pct Auto 0.4 % (0.0-0.4); Lymphocytes Absolute Auto 2.1 X10*3/uL (1.2-4.9); Lymphocytes Percent Auto 20.3 % (20-40); Mean Corpuscular HGB Conc 32.9 g/dl (31.0-36.0); Mean Corpuscular Volume 91.2 fL (80.0-98.0); Mean Platelet Volume 11.7 fL (9.4-12.4); Monocytes Absolute Auto 0.9 X10*3/uL (0.1-1.2); Monocytes Percent Auto 8.9 % (2-11); Neutrophils Absolute Auto 6.8 x10*3/uL (2.0-8.3); Neutrophils Percent Auto 67.1 % (45-73); Platelet Count 203 X10*3/uL (160-400); Red Cell Distribution Width 12.8 % (11.0-16.0); White Blood Count 10.2 X10*3/uL (4.8-10.8)
[2022-04-25 06:31] LABS: Appearance Urine Clear; Color Urine Yellow; Glucose Urine UA Negative (Negative); Leukocyte Esterase Urine Negative (Negative); Nitrite Urine Negative (Negative); Specific Gravity - Urine 1.015 (1.005-1.025); Urine Blood Negative (Negative); Urine Ketones Negative (Negative); Urine Protein Negative (Neg-Trace)
[2022-04-25 06:58] LABS: Anion Gap 14 (12-20); Blood Urea Nitrogen 13 mg/dL (9-16); Calcium 9.2 mg/dL (8.4-10.2); Carbon Dioxide 28 mmol/L (22-29); Chloride 103 mmol/L (96-108); Estimated Glomerular Filt Rate > 60; Glucose Random 87 mg/dL (60-115); Potassium 3.7 mmol/L (3.3-5.1); Sodium 141 mmol/L (135-145)
[2022-04-25 07:07] LABS: Influenza A PCR NEGATIVE (Negative); Influenza B PCR NEGATIVE (Negative); Resp Syncy Virus RNA Qual PCR NEGATIVE (Negative); SARS COV2 PCR INHOUSE NEGATIVE (Negative)
--- NOTE | 2022-04-25 09:22 | PC.NURSE ---
PT FOUND WALKING IN ROOM COLLAR REMOVED PT INCONTINENT OF STOOL CLEANED UP PROVIDER JAMES ADAMS
== END 2022-04-25 12:05 | disposition skilled nursing facility (03) ==
PROVIDERS: Student in an Organized Health Care Education/Training Program; Emergency Provider Emergency Medicine; PCP Internal Medicine
DX: F03.90 Unspecified dementia, unspecified severity, without behavioral disturbance, psychotic disturbance, mood disturbance, and anxiety (principal); R51.9 Headache, unspecified; R00.1 Bradycardia, unspecified; M54.2 Cervicalgia; Z20.822 Contact with and (suspected) exposure to COVID-19; Z79.899 Other long term (current) drug therapy
CPT/HCPCS: 0241U; 36415; 70450; 72125; 80048; 81003; 85025; 93005; 99284

== ENCOUNTER 2022-06-16 17:20 | Emergency (ER) | payer MEDICARE, OTHER, SELFPAY ==
--- NOTE | ~2022-06-16 | XR_ITS ---
EXAMINATION: XR CHEST CLINICAL INFORMATION: Cough and fever COMPARISON: Chest x-ray 12/06/2021 TECHNIQUE: Frontal portable view of the chest was obtained. 8:16 PM FINDINGS: Lungs are clear. No pulmonary vascular congestion. There is no pleural effusion. The heart size is normal. The cardiac and mediastinal contours are normal. There are calcifications of the thoracic aorta. There are multilevel degenerative changes of dorsal spine. Surgical clips in the right axilla XR/XR chest 1V IMPRESSION: Unremarkable examination.
[2022-06-16 17:33] VITALS: BP 127/57; BP 133/70; PULSE 81; PULSE 99; RESP 16; TEMP 38.2; O2SAT 96; BMI 26.2
[2022-06-16 19:44] LABS: MANUAL DIFF FLAG NO
[2022-06-16 19:45] LABS: Basophils Percent Auto 0.1 % (0-2); Eosinophils Percent Auto 0.1 % (0-4); Hematocrit 38.8 % (42.0-52.0); Hemoglobin 12.8 g/dl (14.0-18.0); Imm Gran Abs Auto 0.05 X10*3/uL (0.00-0.03); Imm Gran Pct Auto 0.4 % (0.0-0.4); Lymphocytes Absolute Auto 0.9 X10*3/uL (1.2-4.9); Lymphocytes Percent Auto 8.2 % (20-40); Mean Corpuscular Hemoglobin 30.2 pg (27.0-33.0); Mean Corpuscular Volume 91.5 fL (80.0-98.0); Mean Platelet Volume 12.4 fL (9.4-12.4); Monocytes Percent Auto 8.6 % (2-11); Neutrophils Absolute Auto 9.3 x10*3/uL (2.0-8.3); Neutrophils Percent Auto 82.6 % (45-73); Platelet Count 190 X10*3/uL (160-400); Red Blood Count 4.24 X10*6/uL (4.60-5.80); Red Cell Distribution Width 13.4 % (11.0-16.0); White Blood Count 11.3 X10*3/uL (4.8-10.8)
[2022-06-16 19:47] LABS: Appearance Urine Clear; Color Urine Dark Yellow; Glucose Urine UA Negative (Negative); Leukocyte Esterase Urine Negative (Negative); Nitrite Urine Negative (Negative); PH 5.5 (5.0-9.0); Specific Gravity - Urine >= 1.030 (1.005-1.025); UMIC TRIGGER UACC YES; Urine Blood Negative (Negative); Urine Ketones 15 mg/dL (Negative); Urine Protein 30 (1+) mg/dL (Neg-Trace)
[2022-06-16 19:49] LABS: Bacteria Urine None Seen (None Seen); Hyaline Casts Urine 0-2 /LPF (0-2); RBC Urine 0-2 /HPF (0-2); Squamous Epithelial Cell Urine 0-2 /HPF (0-2); WBC Urine 0-5 /HPF (0-5)
[2022-06-16 19:51] LABS: Prothrombin Time 11.7 SEC (10.0-13.1)
[2022-06-16 19:58] LABS: COVID-19 Test Negative (Negative); IDNOW Serial# 6674DD1D
[2022-06-16 20:01] LABS: Alanine Aminotransferase 8 U/L (0-40); Albumin Level 3.9 g/dL (3.5-5.0); Alkaline Phosphatase 55 U/L (39-117); Anion Gap 12 (12-20); Aspartate Amino Transferase 14 U/L (5-37); Bilirubin Total 0.6 mg/dL (0.0-1.0); Blood Urea Nitrogen 20 mg/dL (9-16); Calcium 8.5 mg/dL (8.4-10.2); Carbon Dioxide 27 mmol/L (22-29); Chloride 107 mmol/L (96-108); Creatinine Clr Calc Pharmacy 89.2; Estimated Glomerular Filt Rate > 60; Glucose Random 106 mg/dL (60-115); Potassium 3.6 mmol/L (3.3-5.1); Sodium 142 mmol/L (135-145); Total Protein 6.3 g/dL (6.5-8.0)
[2022-06-16 20:04] LABS: IDNOW Serial# 55D5AD1C; Influenza A Negative (Negative); Influenza B2 Negative (Negative)
[2022-06-16] MEDS: 0.9 % Sodium Chloride 500 ML 999 ML IV (20:44)
[2022-06-16] MEDS: Acetaminophen 325 MG TABLET 650 MG PO (21:16)
--- NOTE | 2022-06-16 21:35 | ED.GENADULT ---
HPI - General Adult General Chief complaint: General Medical Stated complaint: DEMENTIA, DIARRHEA, DEHYDRATION Time Seen by Provider: 06/16/22 17:31 Source: patient and EMS Mode of arrival: EMS History of Present Illness HPI narrative: This is an 81-year-old male who is brought in by EMS with reported diarrhea and decreased oral intake and as per the facility increased confusion. Patient does have a history of dementia. Currently, patient denies any fever, chills, shortness of breath, chest pain/palpitations. He denies any abdominal discomfort, nausea, or vomiting. Related Data Home Medications Medication Instructions Recorded Confirmed aspirin 81 mg tablet,delayed 81 mg PO DAILY 12/06/21 12/06/21 release cyanocobalamin (vitamin B-12) 1,000 mcg PO DAILY 12/06/21 12/06/21 1,000 mcg tablet donepezil 5 mg tablet 1 tab PO DAILY@1900 12/06/21 12/06/21 famotidine 40 mg tablet 1 tab PO BEDTIME 12/06/21 12/06/21 losartan 50 mg tablet 1 tab PO DAILY 12/06/21 12/06/21 metoprolol succinate 50 mg 1 tab PO DAILY 12/06/21 12/06/21 tablet,extended release 24 hr quetiapine 25 mg tablet 1 tab PO DAILY@0900,1600 12/06/21 12/06/21 simvastatin 40 mg tablet 1 tab PO DAILY 12/06/21 12/06/21 Allergies Allergy/AdvReac Type Severity Reaction Status Date / Time No Known Allergies Allergy Unverified 02/28/20 15:20 [No Known Allergies*] Review of Systems Review of Systems: Pertinent positives and negatives as stated in HPI. PMFSH Past Medical History Source: nursing notes reviewed Social History Social History Advance Directives: Yes Advance Directives on File: Yes Advance Directives Date on File: 12/06/01 Physical Exam ED Vital Signs: Vital Signs - 24 hr 06/16/22 17:33 Temperature 100.8 F H Pulse Rate 81 Respiratory Rate 16 Blood Pressure 127/57 L Pulse Oximetry 96 Oxygen Delivery Method Room Air BMI result Body Mass Index 26.2 VITAL SIGNS: Reviewed. GENERAL: Elderly, well nourished, in no acute distress. HEAD: Normocephalic/atraumatic EYES: PERRLA, EOMI EARS: Ext canals without abnormality OROPHARYNX: no oral lesions noted, posterior pharynx clear LUNGS: Normal breath sounds. No adventitious sounds or accessory muscle use. SpO2<96> CARDIOVASCULAR: Regular rate and rhythm without noted murmurs, no JVD or lower extremity edema. ABDOMEN: Soft, non-tender, non-distended with bowel sounds. MUSCULOSKELETAL: No tenderness, deformities, or effusions noted on gross inspection. EXTREMITIES: No cyanosis, clubbing or edema. SKIN: Inspection of the skin reveals no rashes NEUROLOGIC: Alert and oriented x 2. Strength and sensation to light touch were grossly intact x 4. Medications Administered Discontinued Medications Generic Name Dose Route Start Last Admin Trade Name Freq PRN Reason Stop Dose Admin Acetaminophen 650 mg 06/16/22 20:50 06/16/22 21:16 Acetaminophen 325 Mg Tablet PO 06/16/22 20:51 650 mg ONCE ONE Administration Sodium Chloride 500 mls @ 999 mls/hr 06/16/22 20:15 06/16/22 20:44 Ns IV 06/16/22 20:45 999 mls/hr .Q[facility] Administration Medical Decision Making Medical Decision Making [facility] Narrative: 81-year-old male with presentation initially concerning for possible colitis, but patient has no nausea, vomiting and abdominal exam is benign. Patient was noted to have a temperature of 100.8 degrees and received Tylenol. I have reviewed and interpreted all investigations and there is a mild leukocytosis, no abdominal pain and patient is elevated temperature has resolved and he has had no diarrheal episodes since arrival in the emergency room. He is resting comfortably and remaining lab work is chronically stable. Urinalysis in imaging studies are negative for acute sources and although viral testing is negative there is a possibility that patient could test positive at a later date. At this time I am recommending supportive care with Tylenol and ibuprofen for fevers, encourage adequate hydration and follow up with primary care provider tomorrow. Differential Diagnosis Differential Diagnoses: The differential diagnosis associated with the presentation includes Colitis, viral gastroenteritis, viral illness Lab Data [facility] Lab Attestation statement: I reviewed the patient's lab results. Please see above discussion Result Diagrams: 06/16/22 19:33 06/16/22 21:15 Labs: Lab Results 06/16/22 06/16/22 06/16/22 Range/Units 19:33 19:33 19:33 WBC 11.3 H (4.8-10.8) X10*3/uL RBC 4.24 L (4.60-5.80) X10*6/uL Hgb 12.8 L (14.0-18.0) g/dl Hct 38.8 L (42.0-52.0) % MCV 91.5 (80.0-98.0) fL MCH 30.2 (27.0-33.0) pg MCHC 33.0 (31.0-36.0) g/dl RDW 13.4 (11.0-16.0) % Plt Count 190 (160-400) X10*3/uL MPV 12.4 (9.4-12.4) fL Immature Gran % (Auto) 0.4 (0.0-0.4) % Neut % (Auto) 82.6 H (45-73) % Lymph % (Auto) 8.2 L (20-40) % [place] % (Auto) 8.6 (2-11) % Eos % (Auto) 0.1 (0-4) % Baso % (Auto) 0.1 (0-2) % Lymph # (Auto) 0.9 L (1.2-4.9) X10*3/uL [place] # (Auto) 1.0 (0.1-1.2) X10*3/uL Eos # (Auto) 0.0 (0.0-0.4) X10*3/uL Baso # (Auto) 0.0 (0.0-0.2) X10*3/uL Abs Immat Gran (auto) 0.05 H (0.00-0.03) X10*3/uL Absolute Neuts (auto) 9.3 H (2.0-8.3) x10*3/uL Absolute Nucleated RBC 0.000 (0.0-0.012) X10*3/uL Nucleated RBC % (auto) 0.0 (0.0-0.2) /100WBC PT 11.7 (10.0-13.1) SEC INR 1.0 (0.9-1.1) Sodium 142 (135-145) mmol/L Potassium 3.6 (3.3-5.1) mmol/L Chloride 107 (96-108) mmol/L Carbon Dioxide 27 (22-29) mmol/L Anion Gap 12 (12-20) BUN 20 H (9-16) mg/dL Creatinine 0.77 (0.5-1.4) mg/dL Estim Creat Clear Calc 89.2 Estimated GFR > 60 Random Glucose 106 (60-115) mg/dL Calcium 8.5 D (8.4-10.2) mg/dL Total Bilirubin 0.6 (0.0-1.0) mg/dL AST 14 (5-37) U/L ALT 8 (0-40) U/L Alkaline Phosphatase 55 (39-117) U/L Total Protein 6.3 L (6.5-8.0) g/dL Albumin 3.9 (3.5-5.0) g/dL Urine Color Urine Appearance Urine pH (5.0-9.0) Ur Specific [place] (1.005-1.025) Urine Protein (Neg-Trace) mg/dL Urine Glucose (UA) (Negative) mg/dL Urine Ketones (Negative) mg/dL Urine Blood (Negative) Urine Nitrite (Negative) Ur Leukocyte Esterase (Negative) Urine RBC (0-2) /HPF Urine WBC (0-5) /HPF Ur Squamous Epith Cells (0-2) /HPF Urine Bacteria (None Seen) Hyaline Casts (0-2) /LPF COVID-19 (MENG) (Negative) COVID-19 Clin Com Influenza Type A (KOTA) (Negative) Influenza Type B ([facility]OTA) (Negative) Influenza A & B Note 06/16/22 06/16/22 06/16/22 Range/Units 19:33 19:34 19:36 WBC (4.8-10.8) X10*3/uL RBC (4.60-5.80) X10*6/uL Hgb (14.0-18.0) g/dl Hct (42.0-52.0) % MCV (80.0-98.0) fL MCH (27.0-33.0) pg MCHC (31.0-36.0) g/dl RDW (11.0-16.0) % Plt Count (160-400) X10*3/uL MPV (9.4-12.4) fL Immature Gran % (Auto) (0.0-0.4) % Neut % (Auto) (45-73) % Lymph % (Auto) (20-40) % [place] % (Auto) (2-11) % Eos % (Auto) (0-4) % Baso % (Auto) (0-2) % Lymph # (Auto) (1.2-4.9) X10*3/uL [place] # (Auto) (0.1-1.2) X10*3/uL Eos # (Auto) (0.0-0.4) X10*3/uL Baso # (Auto) (0.0-0.2) X10*3/uL Abs Immat Gran (auto) (0.00-0.03) X10*3/uL Absolute Neuts (auto) (2.0-8.3) x10*3/uL Absolute Nucleated RBC (0.0-0.012) X10*3/uL Nucleated RBC % (auto) (0.0-0.2) /100WBC PT (10.0-13.1) SEC INR (0.9-1.1) Sodium (135-145) mmol/L Potassium (3.3-5.1) mmol/L Chloride (96-108) mmol/L Carbon Dioxide (22-29) mmol/L Anion Gap (12-20) BUN (9-16) mg/dL Creatinine (0.5-1.4) mg/dL Estim Creat Clear Calc Estimated GFR Random Glucose (60-115) mg/dL Calcium (8.4-10.2) mg/dL Total Bilirubin (0.0-1.0) mg/dL AST (5-37) U/L ALT (0-40) U/L Alkaline Phosphatase (39-117) U/L Total Protein (6.5-8.0) g/dL Albumin (3.5-5.0) g/dL Urine Color Dark Yellow Urine Appearance Clear Urine pH 5.5 (5.0-9.0) Ur Specific [place] >= 1.030 H (1.005-1.025) Urine Protein 30 (1+) H (Neg-Trace) mg/dL Urine Glucose (UA) Negative (Negative) mg/dL Urine Ketones 15 (Negative) mg/dL Urine Blood Negative (Negative) Urine Nitrite Negative (Negative) Ur Leukocyte Esterase Negative (Negative) Urine RBC 0-2 (0-2) /HPF Urine WBC 0-5 (0-5) /HPF Ur Squamous Epith Cells 0-2 (0-2) /HPF Urine Bacteria None Seen (None Seen) Hyaline Casts 0-2 (0-2) /LPF COVID-19 (MENG) Negative (Negative) COVID-19 Clin Com See Note Influenza Type A (KOTA) Negative (Negative) Influenza Type B ([facility]OTA) Negative (Negative) Influenza A & B Note See Note 06/16/22 Range/Units 21:15 WBC (4.8-10.8) X10*3/uL RBC (4.60-5.80) X10*6/uL Hgb (14.0-18.0) g/dl Hct (42.0-52.0) % MCV (80.0-98.0) fL MCH (27.0-33.0) pg MCHC (31.0-36.0) g/dl RDW (11.0-16.0) % Plt Count (160-400) X10*3/uL MPV (9.4-12.4) fL Immature Gran % (Auto) (0.0-0.4) % Neut % (Auto) (45-73) % Lymph % (Auto) (20-40) % [place] % (Auto) (2-11) % Eos % (Auto) (0-4) % Baso % (Auto) (0-2) % Lymph # (Auto) (1.2-4.9) X10*3/uL [place] # (Auto) (0.1-1.2) X10*3/uL Eos # (Auto) (0.0-0.4) X10*3/uL Baso # (Auto) (0.0-0.2) X10*3/uL Abs Immat Gran (auto) (0.00-0.03) X10*3/uL Absolute Neuts (auto) (2.0-8.3) x10*3/uL Absolute Nucleated RBC (0.0-0.012) X10*3/uL Nucleated RBC % (auto) (0.0-0.2) /100WBC PT (10.0-13.1) SEC INR (0.9-1.1) Sodium 143 (135-145) mmol/L Potassium 3.8 (3.3-5.1) mmol/L Chloride 108 (96-108) mmol/L Carbon Dioxide 24 (22-29) mmol/L Anion Gap 15 (12-20) BUN 20 H D (9-16) mg/dL Creatinine 0.71 (0.5-1.4) mg/dL Estim Creat Clear Calc 96.7 Estimated GFR > 60 Random Glucose 107 (60-115) mg/dL Calcium 8.3 L (8.4-10.2) mg/dL Total Bilirubin 0.5 (0.0-1.0) mg/dL AST 18 D (5-37) U/L ALT 9 (0-40) U/L Alkaline Phosphatase 48 (39-117) U/L Total Protein 6.2 L (6.5-8.0) g/dL Albumin 3.7 (3.5-5.0) g/dL Urine Color Urine Appearance Urine pH (5.0-9.0) Ur Specific [place] (1.005-1.025) Urine Protein (Neg-Trace) mg/dL Urine Glucose (UA) (Negative) mg/dL Urine Ketones (Negative) mg/dL Urine Blood (Negative) Urine Nitrite (Negative) Ur Leukocyte Esterase (Negative) Urine RBC (0-2) /HPF Urine WBC (0-5) /HPF Ur Squamous Epith Cells (0-2) /HPF Urine Bacteria (None Seen) Hyaline Casts (0-2) /LPF COVID-19 ([facility]ENG) (Negative) COVID-19 Clin Com Influenza Type A ([facility]OTA) (Negative) Influenza Type B ([facility]) (Negative) Influenza A & B Note Independent Interpretation I performed an independent interpretation of an: EKG Interpretation: Sinus rhythm with first-degree AV block at baseline, HR-66, no STEMI, [place] -240, QRS and QTC are within normal limits with nonspecific ST-T wave abnormalities Radiology Impression Radiologist Impression: My interpretation is in agreement with radiology's impression of the imaging studies. External Record Review External record reviewed: Outpatient record and Prior outpatient labs Chronic Conditions Patient?s care impacted by: Other Dementia Discharge Plan Discharge Clinical Impression: Viral syndrome, Diarrhea Patient Disposition: [facility] Instructions: Viral Syndrome (ED), Acute Diarrhea (ED), Nutrition Tips for Relief of Diarrhea (ED) Additional Instructions: 1. Resume home medications as prescribed. 2. At this time I am recommending supportive care with Tylenol and ibuprofen for fevers, encourage adequate hydration. 3. Follow-up with primary care provider today. Return to the ER for worsening symptoms. Prescriptions: No Action losartan 50 mg tablet 1 tab PO DAILY quetiapine 25 mg tablet 1 tab PO DAILY@0900,1600 donepezil 5 mg tablet 1 tab PO DAILY@1900 metoprolol succinate 50 mg tablet extended release 24 hr 1 tab PO DAILY famotidine 40 mg tablet 1 tab PO BEDTIME simvastatin 40 mg tablet 1 tab PO DAILY cyanocobalamin (vitamin B-12) 1,000 mcg Tablet 1,000 mcg PO DAILY aspirin 81 mg Tablet,Delayed Release (Dr/Ec) 81 mg PO DAILY
--- NOTE | 2022-06-16 21:40 | ECG_ITS ---
Test Reason : WEAKNESS Blood Pressure : / mmHG Vent. Rate : 066 BPM Atrial Rate : 066 BPM P-R Int : 240 ms QRS Dur : 102 ms QT Int : 430 ms P-R-T Axes : 056 -30 052 degrees QTc Int : 450 ms Sinus rhythm with 1st degree A-V block with Premature atrial complexes Left axis deviation Nonspecific ST and T wave abnormality Abnormal ECG When compared with ECG of 25-APR-2022 05:41, Premature atrial complexes are now Present Referred By: Mariola Thompson Electronically Signed By:CRAIG HARMAN
[2022-06-16 21:54] LABS: Alanine Aminotransferase 9 U/L (0-40); Albumin Level 3.7 g/dL (3.5-5.0); Alkaline Phosphatase 48 U/L (39-117); Anion Gap 15 (12-20); Aspartate Amino Transferase 18 U/L (5-37); Bilirubin Total 0.5 mg/dL (0.0-1.0); Blood Urea Nitrogen 20 mg/dL (9-16); Calcium 8.3 mg/dL (8.4-10.2); Carbon Dioxide 24 mmol/L (22-29); Chloride 108 mmol/L (96-108); Creatinine Clr Calc Pharmacy 96.7; Estimated Glomerular Filt Rate > 60; Glucose Random 107 mg/dL (60-115); Potassium 3.8 mmol/L (3.3-5.1); Sodium 143 mmol/L (135-145); Total Protein 6.2 g/dL (6.5-8.0)
[2022-06-16 22:23] VITALS: BP 142/75; PULSE 68; RESP 14; TEMP 36.6; O2SAT 97
--- NOTE | 2022-06-16 22:24 | PC.NURSE ---
Pt alert to self currently resting no s/sx of resp distress noted. Pt denying pain at this time.
[2022-06-16 23:25] LABS: Troponin-I High Sensitivity 20.3 ng/L (<3.5-35.0)
[2022-06-17 00:37] VITALS: BP 138/65; PULSE 65; RESP 18; TEMP 36.3; O2SAT 97
--- NOTE | 2022-06-17 00:40 | PC.NURSE ---
Patient is alert and oriented to his baseline. Skin is moist and pink. No signs of resp distress. Safety maintained
--- NOTE | 2022-06-17 00:46 | MHC.EDTECH ---
CALL OUT TO [facility]. [facility] HERE FOR 08 FOR TRANSPORT BACK TO THE [facility] AT [address]
[2022-06-17 03:32] VITALS: BP 134/62; PULSE 62; RESP 16; TEMP 36.6; O2SAT 94
[2022-06-17 04:08] VITALS: BP 132/87; PULSE 65; RESP 18; O2SAT 96
[2022-06-17 06:12] VITALS: PULSE 70; RESP 18; O2SAT 98
--- NOTE | 2022-06-17 08:11 | PC.NURSE ---
report given to gopal at the [facility]
[2022-06-17 09:01] VITALS: BP 110/65; PULSE 68; RESP 18; O2SAT 95
--- NOTE | 2022-06-17 09:01 | MHC.EDTECH ---
[facility] HERE FOR BLS TRANSPORT BACK TO THE [facility] IN [place] @ THIS TIME
== END 2022-06-17 09:34 | disposition skilled nursing facility (03) ==
PROVIDERS: Emergency Provider Student in an Organized Health Care Education/Training Program
DX: B34.9 Viral infection, unspecified (principal); R19.7 Diarrhea, unspecified; Z20.822 Contact with and (suspected) exposure to COVID-19; R50.9 Fever, unspecified; F03.90 Unspecified dementia, unspecified severity, without behavioral disturbance, psychotic disturbance, mood disturbance, and anxiety; Z79.82 Long term (current) use of aspirin; Z79.02 Long term (current) use of antithrombotics/antiplatelets; Z79.899 Other long term (current) drug therapy
CPT/HCPCS: 36415; 51701; 71045; 80053; 81001; 84484; 85025; 85610; 87502; 87635; 93005; 96360; 96361; 99285

== ENCOUNTER 2023-06-15 16:43 | Outpatient (REF) | payer MEDICARE, OTHER, SELFPAY | END 2023-06-15 16:44 | disposition home or self-care (01) | LOC: HO.HSH2N 16:43 | PROVIDERS: Visit Provider Internal Medicine | DX: R21 Rash and other nonspecific skin eruption (principal) | CPT/HCPCS: 87220 ==

== ENCOUNTER 2023-06-16 09:57 | Outpatient (REF) | payer MEDICARE, OTHER, SELFPAY ==
[2023-06-16 10:40] LABS: Alanine Aminotransferase 5 U/L (0-40); Alkaline Phosphatase 49 U/L (39-117); Anion Gap 13 (12-20); Aspartate Amino Transferase 10 U/L (5-37); Bilirubin Total 0.4 mg/dL (0.0-1.0); Blood Urea Nitrogen 11 mg/dL (9-16); Calcium 8.6 mg/dL (8.4-10.2); Carbon Dioxide 29 mmol/L (22-29); Chloride 106 mmol/L (96-108); Cholesterol 117 mg/dL (<200); Estimated Glomerular Filt Rate > 60; Glucose Fasting 77 mg/dL (60-99); HDL Cholesterol 47 mg/dL (>40); LDL Cholesterol Calculated 60 mg/dL (<100); Potassium 3.9 mmol/L (3.3-5.1); Sodium 144 mmol/L (135-145); Total Protein 5.8 g/dL (6.5-8.0); Triglycerides 51 mg/dL (<150)
[2023-06-16 10:59] LABS: Thyroid Stimulating Hormone 2.62 uIU/mL (0.32-4.0)
== END 2023-06-16 09:58 | disposition home or self-care (01) ==
LOC: HO.HSH2N 09:57
PROVIDERS: Visit Provider Internal Medicine Interventional Cardiology
DX: F03.90 Unspecified dementia, unspecified severity, without behavioral disturbance, psychotic disturbance, mood disturbance, and anxiety (principal); I10 Essential (primary) hypertension; E53.8 Deficiency of other specified B group vitamins; C61 Malignant neoplasm of prostate; Z12.5 Encounter for screening for malignant neoplasm of prostate
CPT/HCPCS: 36415; 80053; 80061; 84443; 85025; 86481

== ENCOUNTER 2023-06-17 05:18 | Outpatient (REF) | payer MEDICARE, OTHER, SELFPAY | END 2023-06-17 05:19 | disposition home or self-care (01) | LOC: HO.HSH2N 05:18 | PROVIDERS: Visit Provider Internal Medicine Interventional Cardiology | DX: F03.90 Unspecified dementia, unspecified severity, without behavioral disturbance, psychotic disturbance, mood disturbance, and anxiety (principal); E78.70 Disorder of bile acid and cholesterol metabolism, unspecified; I10 Essential (primary) hypertension; E53.8 Deficiency of other specified B group vitamins; C61 Malignant neoplasm of prostate; Z12.5 Encounter for screening for malignant neoplasm of prostate | CPT/HCPCS: 36415; 82607; 84153 ==

== ENCOUNTER 2023-07-27 14:38 | Outpatient (AMB) | payer MEDICARE, OTHER, SELFPAY ==
--- NOTE | 2023-07-27 13:54 | A.OFFVIS_ITS ---
Intake Intake Visit Reasons: New Patient at [facility] Allergies No Known Allergies [No Known Allergies*] Allergy (Unverified 07/26/23 14:50) HPI HPI Comments History of Present Illness Details Alejandro is an 82 year old male with dementia. POA. The patient has a h/o prostate cancer treated with RT in about with rising PSA PSA 06/17/23-- 17.4 ng/mL Bladder scan [facility] 5 mL PMH and medications [facility] the [facility] chart Plan - Recommend bone scan to evaluate for metastasis The patient may benefit from GnRH therapy with Eligard and Casodex 50 mg daily [facility] Social History Advance Directives Date on File: 12/06/01 Review of Systems Const All systems reviewed & are unremarkable except as noted in HPI and below Reports no additional complaints Eyes Reports no additional complaints ENT Reports no additional complaints Card Denies dyspnea Resp Denies cough and Denies dyspnea GI Reports no additional complaints Musc Reports no additional complaints Skin/Breast Denies rash and Denies unusual bruising Neuro Reports no additional complaints Psych Reports no additional complaints Endo Reports no additional complaints Claudio/Lymph Reports no additional complaints Aller/Immun Reports no additional complaints Physical Exam Const General: healthy appearing, no acute distress and well developed Orientation/consciousness: patient oriented x3 HEENT Head: Yes normocephalic and Yes atraumatic Eyes Conjunctivae: conjunctivae normal Neck Neck: Yes normal visual inspection Chest Chest palpation & inspection: normal inspection of the chest Resp Effort & Inspection: normal respiratory effort Cardio Rate: regular rate GI Inspection: Yes normal to inspection Skin General skin exam: no rashes or lesions noted Neuro General: patient oriented x3 Extrem General: No pedal edema Psych Appearance: grossly normal Affect: normal affect Assessment & Plan Assessment & Plan (1) History of prostate cancer: Code(s): Z85.46 - Personal history of malignant neoplasm of prostate (2) Elevated PSA, between 10 and less than 20 ng/ml: Code(s): R97.20 - Elevated prostate specific antigen [PSA] Plan Plan - Recommend bone scan to evaluate for metastasis The patient may benefit from GnRH therapy with Eligard and Casodex 50 mg daily Coding Level of Care Code 21908-Ldbf Fac initial, high Diagnoses History of prostate cancer Z85.46 Elevated PSA, between 10 and less than 20 ng/ml R97.20
--- OUTSIDE RECORDS SUMMARY | 2023-07-27 14:39 | XMS_ITS | Summary of Care ---
Author Name Unknown Organization [facility] Address [address] [place] [address]- Encounter 04/07/17 - 04/15/17 [facility] [address] [place] [address]- Discharge Diagnosis: OA - Osteoarthritis of knee Discharge Disposition: Discharged to Home or Self Care Attending Physician: Jadon Morse MD Vital Signs Most recent to oldest [Reference Range]: 1 2 3 Temperature Oral F [96.4-99.1 DegF] 97.2 DegF (04/15/17 6:07 AM) 96.7 DegF (04/14/17 4:00 PM) 97.3 DegF (04/14/17 6:23 AM) Peripheral Pulse Rate [60-100 bpm] 92 bpm (04/15/17 8:06 AM) 89 bpm (04/15/17 6:07 AM) 76 bpm (04/14/17 4:00 PM) Respiratory Rate [14-20 br/min] 20 br/min (04/15/17 6:07 AM) 18 br/min (04/14/17 4:00 PM) 20 br/min (04/14/17 6:23 AM) Blood Pressure [90-140/60-90 mmHg] 139/67mmHg (04/15/17 8:06 AM) 139/63mmHg (04/14/17 4:00 PM) Systolic Blood Pressure [90-140 mmHg] 122 mmHg (04/15/17 6:07 AM) Diastolic Blood Pressure [60-90 mmHg] 68 mmHg (04/15/17 6:07 AM) Temperature Oral [35.8-37.3 DegC] 36.2 DegC (04/15/17 6:07 AM) 35.9 DegC (04/14/17 4:00 PM) 36.3 DegC (04/14/17 6:23 AM) Problem List Condition Effective Dates Status Health Status Inform ant OA - Osteoarthritis of knee( Confirmed) 1 Active 1left Allergies, Adverse Reactions, Alerts Substance Reaction Severity Status No Known Allergies Active Medications acetaminophen 325 mg oral tablet 650 mg = 2 tab, Tab, Oral, q6hr PRN, 0 Refill(s), PAIN (Scale 1-3) Start Date: 04/14/17 Status: Ordered aspirin 325 mg oral tablet 325 mg = 1 tab, Tab, Oral, BID, 0 Refill(s) Start Date: 04/14/17 Status: Ordered cyanocobalamin 100 mcg oral tablet 100 mcg = 1 tab, Tab, Oral, Daily, 0 Refill(s) Start Date: 04/14/17 Status: Ordered famotidine 20 mg oral tablet 40 mg = 2 tab, Tab, Oral, Daily, 60 tab, 0 Refill(s), Print Requisition Start Date: 04/14/17 Status: Ordered hydroCHLOROthiazide 25 mg oral tablet 12.5 mg = 0.5 tab, Tab, Oral, qAM, 15 tab, 0 Refill(s), Print Requisition Start Date: 04/14/17 Status: Ordered losartan 50 mg oral tablet 50 mg = 1 tab, Tab, Oral, Daily, 30 tab, 0 Refill(s), Print Requisition Start Date: 04/14/17 Status: Ordered metoprolol succinate 50 mg oral tablet, extended release 50 mg, 1 tab, Tab-ER, Oral, Daily, 30 tab, 0 Refill(s), Print Requisition Start Date: 04/14/17 Status: Ordered MiraLax 17 gm = 1 EA, Powder, Oral, Daily, 0 Refill(s) Start Date: 04/14/17 Status: Ordered simvastatin 40 mg oral tablet 40 mg = 1 tab, Tab, Oral, qAM, 30 tab, 0 Refill(s), Print Requisition Start Date: 04/14/17 Status: Ordered Results LABORATORY Most recent to oldest [Reference Range]: 1 2 3 Estimated Creatinine Clearance 63.02 mL/min (04/12/17 11:24 AM) 63.02 mL/min (04/10/17 10:37 AM) 63.02 mL/min (04/08/17 10:45 AM) Creatinine Level 0.60 mg/dL (04/12/17 11:24 AM) 0.62 mg/dL (04/08/17 10:45 AM)
== END 2023-07-27 14:40 | disposition home or self-care (01) ==
LOC: HO.HUSV 14:38
PROVIDERS: Visit Provider Urology
DX: Z85.46 Personal history of malignant neoplasm of prostate (principal); R97.20 Elevated prostate specific antigen [PSA]
CPT/HCPCS: 99306

== ENCOUNTER 2023-09-05 06:52 | Outpatient (REF) | payer MEDICARE, OTHER, SELFPAY ==
[2023-09-05 07:54] LABS: Valproate 12.6 mcg/mL (50.0-100.0)
== END 2023-09-05 06:53 | disposition home or self-care (01) ==
LOC: HO.HSH2N 06:52
PROVIDERS: Visit Provider Internal Medicine Interventional Cardiology
DX: Z51.81 Encounter for therapeutic drug level monitoring (principal); Z79.899 Other long term (current) drug therapy
CPT/HCPCS: 36415; 80164

== ENCOUNTER → 2023-09-06 09:52 | Outpatient (REF) | payer MEDICARE, OTHER, SELFPAY ==
--- NOTE | ~2023-09-06 | NM_ITS ---
EXAMINATION: NM BONE SCAN OF THE WHOLE BODY CLINICAL INFORMATION: Elevated PSA. COMPARISON: No previous bone scan is available for comparison. Radiographs of the chest dated 06/16/2022 are available for comparison. TECHNIQUE: Multiple gamma scintillation camera images of the whole body were performed 3 hours following the intravenous administration of 35 mCi Tc-99m MDP. FINDINGS: In the head, no significant abnormalities are present. In the thoracic cage and upper extremities, there is moderately increased activity in the sternoclavicular joints bilaterally and very mildly increased activity in the acromioclavicular joints bilaterally and at the sternomanubrial articulation. In the spine, there is a mild thoracolumbar scoliosis with lumbar convexity to the right. There are no foci of abnormally increased activity present in the spine. In the pelvis, no significant abnormalities are present. 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 There is no suspicious abnormal activity adjacent to any of the prosthetic components. Minimally increased activity in the left medial femoral condyle is present. No other definite bony abnormalities are noted. The urinary bladder and faint visualization of both kidneys are noted. NM/NM bone scan whole body IMPRESSION: Mild nonspecific abnormalities are noted as described above and these are all likely arthritic or traumatic in etiology. None of these abnormalities is strongly suspicious for metastatic disease.
== END ==
LOC: HO.NUCMED 09:52
PROVIDERS: Visit Provider Internal Medicine Interventional Cardiology
DX: C61 Malignant neoplasm of prostate (principal); R97.20 Elevated prostate specific antigen [PSA]
CPT/HCPCS: 78306; A9503

== ENCOUNTER 2023-09-21 11:28 | Outpatient (AMB) | payer MEDICARE, OTHER, SELFPAY ==
--- NOTE | 2023-09-21 12:38 | A.OFFVIS_ITS ---
Intake Intake Visit Reasons: FU Bone Scan Intake Note: [facility] Patient is present for Follow up Bone Scan Allergies No Known Allergies [No Known Allergies*] Allergy (Unverified 07/26/23 14:50) [facility] HPI Comments History of Present Illness Details Alejandro is a pleasant male. He is a resident [facility]. He is seen for the following urologic conditions - rising PSA following prostate cancer t herapy - prostate cancer Rising PSA following prostate cancer therapy - PSA 07/06 17 Imaging - 09/03 bone scan performed negative for metastatic disease Prostate cancer Initial therapy - EXBRT completed Prior evaluation with discussion of GnRH therapy using combination Eligard with any androgen Given negative bone scan will delay Could try finasteride initially and will repeat PSA in 3 months [facility] Social History Advance Directives Date on File: 12/06/01 Review of Systems Const Reports as per HPI and Reports no additional complaints Card Reports as per HPI and Reports no additional complaints Resp Reports as per HPI and Reports no additional complaints GI Reports as per HPI and Reports no additional complaints Reports as per HPI Musc Reports no additional complaints and Reports as per HPI Neuro Reports no additional complaints and Reports as per HPI Physical Exam Const General: cooperative, healthy appearing, comfortable and no acute distress Orientation/consciousness: patient oriented x3 HEENT Face and sinus: Yes normal facial exam Mouth: moist mucous membranes Neck Neck: Yes normal visual inspection, Yes full ROM and Yes trachea midline Chest Chest palpation & inspection: normal inspection of the chest Resp Effort & Inspection: normal respiratory effort, able to speak in complete sentences and no respiratory distress GI Inspection: Yes normal to inspection Back/Spine/Pelvis Cervical Spine: normal cervical lordosis Thoracic/Lumbar Spine: thoracic and lumbar spine normal to inspection Skin General skin exam: no rashes or lesions noted Neuro General: patient oriented x3, tone normal and moves all extremities Extrem General: Yes normal to inspection and Yes capillary refill normal Assessment & Plan Assessment & Plan (1) Rising PSA following treatment for malignant neoplasm of prostate: Code(s): R97.21 - Rising PSA following treatment for malignant neoplasm of prostate (2) Prostate cancer: Code(s): C61 - Malignant neoplasm of prostate Plan Start finasteride Three-month follow-up PSA Patient Instructions: Imaging studies, laboratory and physical exam results were discussed and reviewed in detail. No major barriers to patient understanding were identified. An opportunity to ask questions regarding the treatment plan was provided. All questions were answered. The patient expressed understanding and agreement with the above treatment plan. The patient is aware they should contact our office by phone for worsening of their current condition or the appearance of new urologic symptoms. Compliance is encouraged with any medications and followup testing that is ordered. It is a privilege to participate in the urologic care of your patient. If you have any questions or concerns regarding treatment for the above conditions, or other urologic issues, please do not hesitate to contact me. The office telephone contact is [phone]. This note is constructed using voice recognition software. While every effort has been made to ensure accuracy home demonstration agent errors may have been included. Yours sincerely, Dr Armando Rushing MD, HECTOR [facility] - Urology Providers of Expert, Compassionate Care for the Genitourinary System Coding Level of Care Code 57237-Zchz Fac sub, mod Diagnoses Rising PSA following treatment for malignant neoplasm of prostate R97.21 Prostate cancer C61
== END 2023-09-21 15:49 ==
LOC: HO.HUSV 11:28
PROVIDERS: Visit Provider Urology
DX: R97.21 Rising PSA following treatment for malignant neoplasm of prostate (principal); C61 Malignant neoplasm of prostate
CPT/HCPCS: 99309

== ENCOUNTER 2023-11-15 05:29 | Outpatient (REF) | payer MEDICARE, OTHER, SELFPAY ==
[2023-11-15 06:51] LABS: Prostate Specific Antigen 16.47 ng/mL (<0.05-4.0)
[2023-11-19 17:34] LABS: Testosterone, Total 214 ng/dL (250-1100)
== END 2023-11-15 05:30 | disposition home or self-care (01) ==
LOC: HO.HSH2N 05:29
PROVIDERS: Visit Provider Internal Medicine Interventional Cardiology
DX: C61 Malignant neoplasm of prostate (principal); Z12.5 Encounter for screening for malignant neoplasm of prostate
CPT/HCPCS: 36415; 84153; 84403

== ENCOUNTER 2024-02-22 13:10 | Outpatient (AMB) | payer MEDICARE, OTHER, SELFPAY ==
--- NOTE | 2024-02-22 13:10 | HO.VETSHOME ---
Intake Intake Visit Reasons: f/u labs Intake Note: Patient presents at [facility] for follow up on labs Measurement Supervisor Required: No Allergies No Known Allergies [No Known Allergies*] Allergy (Unverified 02/22/24 20:22) Medication List - Last Reconciled 02/22/24 by SARAHI Vallecillo-LIDIA aspirin 81 mg PO DAILY cyanocobalamin (vitamin B-12) 1,000 mcg PO DAILY donepezil 1 tab PO DAILY@1900 famotidine 1 tab PO BEDTIME losartan 1 tab PO DAILY metoprolol succinate ER 1 tab PO DAILY quetiapine 1 tab PO DAILY@0900,1600 simvastatin 1 tab PO DAILY HPI HPI Comments History of Present Illness Details Alejandro is a pleasant 83-year-old male patient who resides at the locked unit at the [facility]. He is being followed up on today for his rising PSA in the setting of prostate cancer. Patient has a history of dementia and is a poor historian. Of note, patient was seen approximately [address] Rushing at which time recommendations were made for initiation of finasteride and reassessment of PSA. Recent PSA results were reviewed with the patient's son Brayan today at the [facility]. PSAs are as follows PSA: 07/06 17, 12/04 16.5 Testosterone: 12/04 214 Previous workup has included a bone scan 09/03 that was negative for metastatic disease. We discussed slight decrease in PSA. We discussed further treatment options and risks and benefits of these treatment options. At this time family would like to continue with finasteride therapy. Will reassess PSA in 6 months. Prostate cancer Initial therapy - EXBRT completed Prior evaluation with discussion of GnRH therapy using combination Eligard with any androgen Given negative bone scan will delay Continue finasteride and will repeat PSA in 6 months [facility] Social History Advance Directives Date on File: 12/06/01 Review of Systems Const Unobtainable due to mental status Physical Exam Const General: comfortable Limitations: wheelchair HEENT Head: Yes normal to inspection Eyes General: appearance normal, both eyes and all related structures Neck Neck: Yes normal visual inspection Chest Chest palpation & inspection: normal inspection of the chest Resp Effort & Inspection: normal respiratory effort Cardio Rate: regular rate GI Inspection: Yes normal to inspection General: Yes no CVA tenderness and Yes deferred Back/Spine/Pelvis Back: no CVA tenderness Skin General skin exam: no rashes or lesions noted Neuro Other: Pleasantly confused Extrem General: Yes normal to inspection Psych Appearance: grossly normal and well kempt Speech and movement: Clear speech present Attitude: cooperative Insight: Limited insight present (Psych) Judgement: Limited judgement present (Psych) Assessment & Plan Assessment & Plan (1) Prostate cancer: Code(s): C61 - Malignant neoplasm of prostate (2) Rising PSA following treatment for malignant neoplasm of prostate: Code(s): R97.21 - Rising PSA following treatment for malignant neoplasm of prostate (3) Elevated PSA, between 10 and less than 20 ng/ml: Code(s): R97.20 - Elevated prostate specific antigen [PSA] (4) History of prostate cancer: Code(s): Z85.46 - Personal history of malignant neoplasm of prostate Plan Recent PSA results reviewed with the family today. Family meeting with Brayan to discuss further treatment options and risks and benefits of these treatment options All questions were answered. Will continue with finasteride as discussed. Previous bone scan results reviewed with the patient's son today. Staff deny patient to have any bothersome urinary issues or concerns at this time. Continue 5 mg of finasteride daily. Will obtain PSA in 6 months. Follow-up in 6 months with PSA to be completed prior; or sooner with any issues, concerns, and or questions. Orders: Orders PSA,Total (Free>4and<10) 6 Months C61 - Malignant neoplasm of prostate, R97.20 - Elevated prostate specific antigen [PSA], R97.21 - Rising PSA following treatment for malignant neoplasm of prostate, Z85.46 - Personal history of malignant neoplasm of prostate Medications: New finasteride 5 mg PO DAILY Patient Instructions: The patient had an opportunity to ask questions regarding the treatment plan. All questions were answered. Physical exam, labs, and imaging were discussed and reviewed in detail. As well as risks, benefits, and discussion of treatment choices. No major barriers to understanding were identified. The patient expressed understanding and agreement with the above treatment plan. The patient was made aware they should contact our office by phone for worsening of their current condition, the appearance of new symptoms, or with any questions or concerns. Compliance is encouraged with any medications and follow up testing that is ordered. It is a privilege to be allowed the opportunity to participate in? your urological care.? Again, if you have any questions or concerns If you have any questions or concerns please do not hesitate to contact me. The office is [phone]. This note is constructed using voice recognition software. While every effort has been made to ensure accuracy performance consultant errors may have been included. Yours sincerely, TETO Vallecillo Coding Level of Care Code 38821-Hujv Fac sub, mod Diagnoses Prostate cancer C61 Rising PSA following treatment for malignant neoplasm of prostate R97.21 Elevated PSA, between 10 and less than 20 ng/ml R97.20 History of prostate cancer Z85.46 Time Spent (min) 35
== END 2024-02-22 16:30 ==
LOC: HO.HUSV 13:10
PROVIDERS: Visit Provider Nurse Practitioner Family
DX: C61 Malignant neoplasm of prostate (principal); R97.21 Rising PSA following treatment for malignant neoplasm of prostate; R97.20 Elevated prostate specific antigen [PSA]; Z85.46 Personal history of malignant neoplasm of prostate
CPT/HCPCS: 99309

== ENCOUNTER 2024-06-06 07:03 | Emergency (ER) | payer MEDICARE, OTHER, SELFPAY ==
--- NOTE | ~2024-06-06 | XR_ITS ---
EXAMINATION: XR TOES, RIGHT CLINICAL INFORMATION: 4th toe injury COMPARISON: None available. TECHNIQUE: 3 views of the right toes were obtained. FINDINGS: The study is very limited as the proximal phalanges are held in extension in the middle and distal phalanges are held in flexion on all views. No obvious fracture is appreciated on this very limited study. No lytic or sclerotic bony lesion is seen. The joint spaces appear grossly maintained. Diffuse small vessel arterial calcification suggests diabetic and/or renal calcific atherosclerosis. XR/XR toe RT min 2V IMPRESSION: Findings as above. Electronically signed by: Heriberto Yao MD 06/06/2024 08:24 AM [facility] Workstation: [id number]
[2024-06-06 07:18] VITALS: BP 151/70; BP 162/84; PULSE 47; PULSE 64; RESP 14; TEMP 36.6; O2SAT 94; O2SAT 95; BMI 35.5
--- NOTE | 2024-06-06 07:32 | ED_ITS ---
HPI - General Adult General Chief complaint: Wound/Laceration Stated complaint: ASPIRATION, NEEDS EVALUATION Time Seen by Provider: 06/06/24 07:32 History of Present Illness ED Provider: Zac BHAT narrative: The patient is an 83-year-old male who lives at the [facility]. He has fairly severe Alzheimer's. This morning he was discovered to have a laceration on the plantar aspect of the 4th toe. He was sent to the emergency room because of this injury. The mechanism of the injury is not clear. I spoke to the patient's who said that she has been told that he injured the toe trying to get out of bed. My assumption is that the toe must have gotten caught on bedding and must have had some kind of a hyperextension injury. The patient is severely demented and cannot give any history. He was not aware he had had an injury. He has no complaints. Related Data Home Medications ?Medication ?Instructions ?Recorded ?Confirmed aspirin 81 mg tablet,delayed 81 mg PO DAILY 12/06/21 12/06/21 release cyanocobalamin (vitamin B-12) 1,000 mcg PO DAILY 12/06/21 12/06/21 1,000 mcg tablet donepezil 5 mg tablet 1 tab PO DAILY@1900 12/06/21 12/06/21 famotidine 40 mg tablet 1 tab PO BEDTIME 12/06/21 12/06/21 losartan 50 mg tablet 1 tab PO DAILY 12/06/21 12/06/21 metoprolol succinate 50 mg 1 tab PO DAILY 12/06/21 12/06/21 tablet,extended release 24 hr quetiapine 25 mg tablet 1 tab PO DAILY@0900,1600 12/06/21 12/06/21 simvastatin 40 mg tablet 1 tab PO DAILY 12/06/21 12/06/21 finasteride 5 mg tablet 5 mg PO DAILY 02/22/24 02/22/24 Allergies Allergy/AdvReac Type Severity Reaction Status Date / Time No Known Allergies Allergy Verified 06/06/24 07:21 [No Known Allergies*] Review of Systems Review of Systems: Yes all other systems are reviewed and are negative PMFSH Social History Social History Advance Directives: Yes Advance Directives on File: Yes Advance Directives Date on File: 12/06/01 Do you have a plan to hurt others: No Plan Physical Exam ED Vital Signs: Vital Signs - 24 hr 06/06/24 07:18 Temperature 97.9 F Pulse Rate 47 L Respiratory Rate 14 Blood Pressure 151/70 H Pulse Oximetry 94 Oxygen Delivery Method Room Air BMI result Body Mass Index 35.5 Const Other: The patient was lying on the stretcher with his eyes closed, apparently sleeping. He responded to simple verbal stimulation. He seems quite profoundly demented. He does not seem in any distress. HENMT Other: Face is symmetrical. Mucous membranes moist. Eyes General: appearance normal, both eyes and all related structures Neck Neck: Yes no JVD Resp Effort & Inspection: normal respiratory effort Auscultation: clear to auscultation bilaterally Cardio Rate: bradycardic Rhythm: regular rhythm Heart sounds: S1 normal heart sound present and S2 normal heart sound present GI Other: Abdomen is soft and nontender Skin Other: There is a laceration to the skin of the plantar aspect of the right 4th toe at approximately the crease of the PIP joint. The length of the laceration is about 2 cm. The normal curve of the toe provides a tendency for the wound to remain closed. When I extend the toe it is apparent this is a full-thickness laceration. There does not seem to be any deeper structure involved. Neuro Other: The patient was resting but responded to verbal stimuli. He is poorly oriented in a manner consistent with severe dementia. No facial asymmetry. No dysarthria. He moves his extremities weakly but symmetrically. Extrem Other: No gross deformity to the right 4th toe. Viewed from the dorsal aspect the toe appears normal. On the plantar aspect of the toe however is a laceration that is transverse to the long axis of the toe. The laceration goes across approximately the crease of the PIP joint. Tendon function of the toe seems to be intact. Medications Administered Discontinued Medications Generic Name Dose Route Start Last Admin Trade Name Freq PRN Reason Stop Dose Admin Bacitracin 1 appl 06/06/24 08:32 06/06/24 08:50 Bacitracin Oint 0.9 Gm Packet TOPICAL 06/06/24 08:33 1 appl ONCE ONE Administration Protocol Diphtheria/Tetanus/Acell Pertussis 0.5 ml 06/06/24 07:44 06/06/24 08:30 Diphth,Pertus(Acell),Tet Adult 0.5 Ml Syringe IM 12/25/24 07:45 0.5 ml .ONCE ONE Administration Lidocaine HCl 5 ml 06/06/24 07:57 06/06/24 08:30 Lidocaine Hcl 1 % Mpf 5 Ml Vial INFILTRATI 06/06/24 07:58 5 ml ONCE ONE Administration Procedures Laceration Laceration 1: Site: lower extremity (Plantar aspect of right 4th toe) Side (If applicable): right Size (cm): 2 Description: linear Depth: simple, single layer Local Anesthetic: lidocaine 1% Amount of anesthesia used (mL): 2.5 Pre-repair: wound explored, irrigated extensively and deep structures intact Skin layer closed with: nylon Size (cm): 5-0 Number of sutures: 2 Technique: simple, interrupted Medical Decision Making Medical Decision Making MDM Narrative: The patient is an 83-year-old male who lives at the [facility]. He is demented. I believe he is nonambulatory. He has a laceration on the plantar aspect of the right 4th toe that I suspect must have occurred by some kind of hyperextension injury. Perhaps the patient got his toe caught on the sheets of his bedding. The patient was given a tetanus shot. Toe is limited but shows no definite fracture. Clinically I think fracture is unlikely. The patient's wound was prepped with Betadine. It was anesthetized with 1% plain lidocaine. The wound was copiously irrigated with saline. I placed 2 stitches on the sides of the toe to help keep the wound closed. The wound seems to have a tendency to close naturally. Bacitracin was applied. The stitches should be removed in 7 days. I spoke to the patient's about his injury. Discharge Plan Discharge Clinical Impression: Laceration of fourth toe of right foot Patient Disposition: er [facility] Transfer Details: [facility] Instructions: Laceration (ED) Additional Instructions: The patient has a laceration on the plantar aspect of the right 4th toe. The wound was thoroughly cleaned. Two stitches were placed to try to keep the wound edges approximated. The location of the wound makes his standard suture placement difficult but the wound has a tendency to stay closed so I hope these stitches will be sufficient. Please keep the area clean and dry. Apply bacitracin 2 times a day for the first 2 days. Stitches should be removed in 7 days. Please monitor for signs of infection. Return to the ER if worse. Prescriptions: No Action losartan 50 mg tablet 1 tab PO DAILY quetiapine 25 mg tablet 1 tab PO DAILY@0900,1600 donepezil 5 mg tablet 1 tab PO DAILY@1900 metoprolol succinate 50 mg tablet extended release 24 hr 1 tab PO DAILY famotidine 40 mg tablet 1 tab PO BEDTIME simvastatin 40 mg tablet 1 tab PO DAILY cyanocobalamin (vitamin B-12) 1,000 mcg Tablet 1,000 mcg PO DAILY aspirin 81 mg Tablet,Delayed Release (Dr/Ec) 81 mg PO DAILY finasteride 5 mg tablet 5 mg PO DAILY Print Language: Maltese
[2024-06-06] MEDS: Diphth,Pertus(ACell),Tet Adult 0.5 ML SYRINGE IM (08:30)
[2024-06-06] MEDS: Lidocaine HCl 1 % MPF 5 ML VIAL INFILTRATI (08:30)
[2024-06-06] MEDS: Bacitracin Oint 0.9 GM PACKET 1 APPL TOPICAL (08:50)
[2024-06-06 09:27] VITALS: BP 00/00; PULSE 0; RESP 0; TEMP -17.7; TEMP 0; O2SAT 0
== END 2024-06-06 09:29 | disposition skilled nursing facility (03) ==
PROVIDERS: Emergency Provider Emergency Medicine
DX: S91.114A Laceration without foreign body of right lesser toe(s) without damage to nail, initial encounter (principal); M79.671 Pain in right foot; X58.XXXA Exposure to other specified factors, initial encounter; Y93.89 Activity, other specified; Y92.89 Other specified places as the place of occurrence of the external cause; Y99.8 Other external cause status; Z23 Encounter for immunization
CPT/HCPCS: 12041; 73660; 90471; 90715; 99282; 99284; J2003

== ENCOUNTER 2024-06-07 06:13 | Outpatient (REF) | payer MEDICARE, OTHER, SELFPAY | END 2024-06-07 06:14 | disposition home or self-care (01) | LOC: HO.HSH1N 06:13 | PROVIDERS: Nurse Practitioner Family; Visit Provider Nurse Practitioner | DX: Z12.5 Encounter for screening for malignant neoplasm of prostate (principal); C61 Malignant neoplasm of prostate; R97.21 Rising PSA following treatment for malignant neoplasm of prostate; R97.20 Elevated prostate specific antigen [PSA]; Z85.46 Personal history of malignant neoplasm of prostate | CPT/HCPCS: 36415; 84153 ==

== ENCOUNTER 2024-06-11 06:26 | Outpatient (REF) | payer MEDICARE, OTHER, SELFPAY ==
[2024-06-17 14:59] LABS: Testosterone, Free 16.3 pg/mL (30.0-135.0); Testosterone, Total 160 ng/dL (250-1100)
== END 2024-06-11 06:27 | disposition home or self-care (01) ==
LOC: HO.HSH1N 06:26
PROVIDERS: Visit Provider Nurse Practitioner
DX: C61 Malignant neoplasm of prostate (principal)
CPT/HCPCS: 36415; 84402; 84403

== ENCOUNTER 2024-06-21 14:47 | Outpatient (AMB) | payer MEDICARE, OTHER, SELFPAY ==
--- NOTE | 2024-06-21 16:43 | A.OFFVIS_ITS ---
Intake Intake Visit Reasons: 6M review PSA/Testo results Allergies No Known Allergies [No Known Allergies*] Allergy (Verified 06/06/24 07:21) HPI HPI Comments History of Present Illness Details Alejandro is a pleasant male. He is a [facility] with [facility]. He is seen for the following urologic conditions - prostate cancer with rising PSA Current PSA rising slowly Had rising PSA Started on finasteride after discussion with family. Should there be rapid increase in PSA would consider GnRH. PSA: 07/06 17, 12/04 16.5, 06/05 18.5 Testosterone: 12/04 214 Imaging - 09/03 bone scan NAD Prostate cancer Initial therapy - EXBRT completed Continue surveillance PFSH Social History Advance Directives Date on File: 12/06/01 Review of Systems Const Reports as per HPI and Reports no additional complaints Card Reports as per HPI and Reports no additional complaints Resp Reports as per HPI and Reports no additional complaints GI Reports as per HPI and Reports no additional complaints Reports as per HPI Musc Reports no additional complaints and Reports as per HPI Neuro Reports no additional complaints and Reports as per HPI Physical Exam Const General: cooperative, healthy appearing, comfortable and no acute distress Orientation/consciousness: patient oriented x3 HEENT Face and sinus: Yes normal facial exam Mouth: moist mucous membranes Neck Neck: Yes normal visual inspection, Yes full ROM and Yes trachea midline Chest Chest palpation & inspection: normal inspection of the chest Resp Effort & Inspection: normal respiratory effort, able to speak in complete sentences and no respiratory distress GI Inspection: Yes normal to inspection Back/Spine/Pelvis Cervical Spine: normal cervical lordosis Thoracic/Lumbar Spine: thoracic and lumbar spine normal to inspection Skin General skin exam: no rashes or lesions noted Neuro General: patient oriented x3, tone normal and moves all extremities Extrem General: Yes normal to inspection and Yes capillary refill normal Assessment & Plan Assessment & Plan (1) Rising PSA following treatment for malignant neoplasm of prostate: Code(s): R97.21 - Rising PSA following treatment for malignant neoplasm of prostate (2) Elevated PSA, between 10 and less than 20 ng/ml: Code(s): R97.20 - Elevated prostate specific antigen [PSA] Plan Six-month follow-up PSA Patient Instructions: Imaging studies, laboratory and physical exam results were discussed and reviewed in detail. No major barriers to patient understanding were identified. An opportunity to ask questions regarding the treatment plan was provided. All questions were answered. The patient expressed understanding and agreement with the above treatment plan. The patient is aware they should contact our office by phone for worsening of their current condition or the appearance of new urologic symptoms. Compliance is encouraged with any medications and followup testing that is ordered. It is a privilege to participate in the urologic care of your patient. If you have any questions or concerns regarding treatment for the above conditions, or other urologic issues, please do not hesitate to contact me. The office telephone contact is [phone]. This note is constructed using voice recognition software. While every effort has been made to ensure accuracy bulk tank driver errors may have been included. Yours sincerely, Dr Armando Rushing MD, [facility] - Urology Providers of Expert, Compassionate Care for the Genitourinary System Coding Level of Care Code 19411-Lzzu Fac sub, mod Diagnoses Rising PSA following treatment for malignant neoplasm of prostate R97.21 Elevated PSA, between 10 and less than 20 ng/ml R97.20
== END 2024-06-21 16:40 ==
LOC: HO.HUSV 14:47
PROVIDERS: Visit Provider Urology
DX: R97.21 Rising PSA following treatment for malignant neoplasm of prostate (principal); R97.20 Elevated prostate specific antigen [PSA]
CPT/HCPCS: 99309

== ENCOUNTER 2024-07-24 06:10 | Outpatient (REF) | payer MEDICARE, OTHER, SELFPAY ==
[2024-07-24 06:13] LABS: MANUAL DIFF FLAG NO
--- OUTSIDE RECORDS SUMMARY | 2024-07-24 06:13 | XMS_ITS | Clinical Summary ---
Author Organization [employer] Address [address] [facility] [address] [place] [address] Care Team Providers Care Mail Carrier Technician Name Role Phone Unavailable Primary Care Provider Unavailabl e Allergies Active Allergy Reactions Criticality Noted Date Comments Florian Inhibitors 06/29/2023 Naproxen 06/29/2023 Nsaids 06/29/2023 Medications simvastatin (Zocor) 40 MG tablet 05/13/2023 Active famotidine (Pepcid) 40 MG tablet 05/13/2023 Active losartan (Cozaar) 25 MG tablet 05/13/2023 Active metoprolol succinate XL (Toprol-XL) 50 MG 24 hr tablet 05/13/2023 Act steven QUEtiapine (SEROquel) 25 MG tablet 05/13/2023 Active acetaminophen (Tylenol) 325 MG tablet Take by mouth. Active bisacodyl (Fleet Bisacodyl) 10 MG/30ML enema Insert 10 mg into the rectum 1 (one) time. Active magnesium 30 MG tablet Take 30 mg by mouth 2 times daily. Active aspirin 81 MG EC tablet Take 81 mg by mouth in the morning. Active Social History Tobacco Use Types Packs/Day Years Used Date Smoking Tobacco: Unknown Tobacco Cessation:Counseling Given: Not Answered Alcohol Use Standard Drinks/Week Comments Defer 0 (1 standard drink = 0.6 oz pur e alcohol) Sex and Gender Information Value Date Recorded Sex Assigned at Male 06/21/2023 10:23 AM EST Legal Sex Male 10:22 AM EST Gender Identity Male 06/21/2023 10:23 AM EST Sexual Orientation Straight 06/21/2023 10 :23 AM EST Plan of Treatment Upcoming Encounters Date Type Department Care Team (Late st Contact Info) Description 08/08/2024 11:30 AM EST Office Visit [facility] [address] [place] [address] Nomi Barksdale, DMD [address] [place] [address] Health Maintenance Due Date Last Done Comments Anal Pap 1938 Dental Prophylaxis 1938 Dental X-Ray: Bitewings 1938 Dental X-Ray: Full Mouth 1938 Depression Screening 1938 Lipid Panel 1938 SDOH Screening 1938 Alcohol/Substance Use Screening 1950 Hepatitis A Vaccines (1 of 2 - Risk 2-dose series) 1957 Hepatitis B Vaccines (1 of 3 - Risk 3-dose series) 1998 RSV Patients and Patients Aged 60 years or older (1 - 1-dose 75+ series) 2013 DTaP/Tdap/Td Vaccines (1 - Tdap) 09/29/2018 09/28/2018 Dental Oral Exam 12/29/2023 06/29/2023 COVID-19 Vaccine ( season) 2024 10/21/2021, 04/03/2021, 08/07/2020, Additional history exists Influenza Vaccine (#1) 2024 , 03/27/2019, 03/16/2018, Additional history exists Tobacco Screening 06/29/2024 06/29/2023 Pneumococcal Vaccine: 50+ Years Completed 02/16/2017, 10/29/2015 Zoster Vaccines Completed 05/13/2020, 02/05/2020 HIB Vaccines Aged Out No longer eligi ble based on patient's age to complete this topic HPV Vaccines Aged Out No longer eligi ble based on patient's age to complete this topic IPV Vaccines Aged Out No longer eligi ble based on patient's age to complete this topic Meningococcal Vaccine Aged Out No naveed triston eligible based on patient's age to complete this topic RSV under 20 months Aged Out No longe r eligible based on patient's age to complete this topic Rotavirus Vaccines Aged Out No longer eligible based on patient's age to complete this topic Procedures Procedure Name Priority Date/Time Associated Diagnosis Comments PERIODIC ORAL EVALUATION - ESTABLISHED PATIENT Routine 06/29/2023 8:30 AM EST from Last 3 Months or Most Recently Relevant to Health Maintenance
--- OUTSIDE RECORDS SUMMARY | 2024-07-24 06:13 | XMS_ITS | Encounter Summary ---
Author Organization [employer] Address [address] [place] [address] [address] [place] [address] Care Team Providers Care Professional Tutor Name Role Phone Unavailable Primary Care Provider Unavailabl e Encounter Details Date Type Department Care Team (Late st Contact Info) Description 06/21/2023 Abstract [facility] [address] [place] [address] Nomi Barksdale, DMD [address] [place] [address] Social History Tobacco Use Types Packs/Day Years Used Date Smoking Tobacco: Never Assessed Sex and Gender Information Value Date Recorded Sex Assigned at Male 06/21/2023 10:23 AM EST Legal Sex Male 10:22 AM EST Gender Identity Male 06/21/2023 10:23 AM EST Sexual Orientation Straight 06/21/2023 10 :23 AM EST documented as of this encounter Plan of Treatment Upcoming Encounters Date Type Department Care Team (Late st Contact Info) Description 08/08/2024 11:30 AM EST Office Visit [facility] [address] [place] [address] Nomi Barksdale, DMD [address] [place] [address] documented as of this encounter Visit Diagnoses Not on filedocumented in this encounter
--- OUTSIDE RECORDS SUMMARY | 2024-07-24 06:13 | XMS_ITS | Encounter Summary ---
Author Organization [employer] Address [address] [place] [address] [address] [place] [address] Care Team Providers Care Road Oiler Name Role Phone Unavailable Primary Care Provider Unavailabl e Encounter Details Date Type Department Care Team (Late st Contact Info) Description 07/11/2023 Abstract [facility] [address] [place] [address] Nomi Barksdale, DMD [address] [place] [address] Social History Tobacco Use Types Packs/Day Years Used Date Smoking Tobacco: Unknown Alcohol Use Standard Drinks/Week Comments Defer 0 [...] Description 08/08/2024 11:30 AM EST Office Visit [facility] [address] [place] [address] Nomi Barksdale, DMD [address] [place] [address] documented as of this encounter Visit Diagnoses Not on filedocumented in this encounter
--- OUTSIDE RECORDS SUMMARY | 2024-07-24 06:13 | XMS_ITS | Encounter Summary ---
Author Organization [employer] Address [address] [place] [address] [address] [place] [address] Care Team Providers Care Sandblasting Supervisor Name Role Phone Unavailable Primary Care Provider Unavailabl e Encounter Details Date Type Department Care Team (Late st Contact Info) Description 07/11/2023 Abstract [facility] [address] [place] [address] Nomi Barksdale, DMD [address] [place] [address] Social History Tobacco Use Types Packs/Day Years [...] Description 08/08/2024 11:30 AM EST Office Visit [facility] [address] [place] [address] Nomi Barksdale, DMD [address] [place] [address] documented as of this encounter Visit Diagnoses Not on filedocumented in this encounter
--- OUTSIDE RECORDS SUMMARY | 2024-07-24 06:13 | XMS_ITS | Encounter Summary ---
Author Organization [employer] Address [address] [place] [address] [address] [place] [address] Care Team Providers Care Ladle Repairer Name Role Phone Unavailable Primary Care Provider Unavailabl e Encounter Details Date Type Department Care Team (Late st Contact Info) Description 07/11/2023 Abstract [facility] [address] [place] [address] Nomi Barksdale, DMD [address] [place] [address] Social History Tobacco Use Types Packs/Day Years [...] Description 08/08/2024 11:30 AM EST Office Visit [facility] [address] [place] [address] Nomi Barksdale, DMD [address] [place] [address] documented as of this encounter Visit Diagnoses Not on filedocumented in this encounter
[2024-07-24 06:20] LABS: Basophils Absolute Auto 0.1 X10*3/uL (0.0-0.2); Basophils Percent Auto 0.9 % (0-2); Eosinophils Absolute Auto 0.5 X10*3/uL (0.0-0.4); Eosinophils Percent Auto 4.7 % (0-4); Hematocrit 37.8 % (42.0-52.0); Hemoglobin 12.2 g/dl (14.0-18.0); Imm Gran Abs Auto 0.03 X10*3/uL (0.00-0.03); Imm Gran Pct Auto 0.3 % (0.0-0.4); Lymphocytes Absolute Auto 1.9 X10*3/uL (1.2-4.9); Lymphocytes Percent Auto 18.3 % (20-40); Mean Corpuscular HGB Conc 32.3 g/dl (31.0-36.0); Mean Corpuscular Hemoglobin 28.9 pg (27.0-33.0); Mean Corpuscular Volume 89.6 fL (80.0-98.0); Mean Platelet Volume 12.2 fL (9.4-12.4); Neutrophils Percent Auto 66.8 % (45-73); Platelet Count 226 X10*3/uL (160-400); Red Blood Count 4.22 X10*6/uL (4.60-5.80); Red Cell Distribution Width 13.1 % (11.0-16.0); White Blood Count 10.5 X10*3/uL (4.8-10.8)
[2024-07-24 06:35] LABS: Alanine Aminotransferase 12 U/L (0-40); Albumin Level 3.2 g/dL (3.5-5.0); Anion Gap 10 (12-20); Aspartate Amino Transferase 34 U/L (5-37); Bilirubin Total 0.4 mg/dL (0.0-1.0); Blood Urea Nitrogen 16 mg/dL (9-16); Calcium 8.4 mg/dL (8.4-10.2); Carbon Dioxide 28 mmol/L (22-29); Chloride 108 mmol/L (96-108); Estimated Glomerular Filt Rate > 60; Glucose Random 81 mg/dL (60-115); Potassium 3.7 mmol/L (3.3-5.1); Sodium 142 mmol/L (135-145); Total Protein 6.2 g/dL (6.5-8.0)
[2024-07-24 06:46] LABS: Alkaline Phosphatase 45 U/L (39-117)
[2024-07-24 06:56] LABS: Thyroid Stimulating Hormone 2.65 uIU/mL (0.32-4.0); Vitamin D 25-OH Total 27.7 ng/mL (>30)
== END 2024-07-24 06:11 | disposition home or self-care (01) ==
LOC: HO.HSH1N 06:10
PROVIDERS: Visit Provider Internal Medicine Interventional Cardiology
DX: I10 Essential (primary) hypertension (principal); E55.9 Vitamin D deficiency, unspecified; F03.90 Unspecified dementia, unspecified severity, without behavioral disturbance, psychotic disturbance, mood disturbance, and anxiety
CPT/HCPCS: 36415; 80053; 82306; 84443; 85025

== ENCOUNTER 2024-11-26 06:45 | Outpatient (REF) | payer MEDICARE, OTHER, SELFPAY ==
[2024-11-28 09:34] LABS: Free Prostate Spec Ag 1.6 ng/mL; Percent Free Prostate Spec Ag NOT CALCULATED % (calc) (>25)
[2024-11-30 20:08] LABS: Testosterone, Free 22.6 pg/mL (30.0-135.0); Testosterone, Total 178 ng/dL (250-1100)
== END 2024-11-26 06:46 | disposition home or self-care (01) ==
LOC: HO.HSH3N 06:45
PROVIDERS: Visit Provider Nurse Practitioner Acute Care
DX: R97.20 Elevated prostate specific antigen [PSA] (principal)
CPT/HCPCS: 36415; 84154; 84402; 84403

== ENCOUNTER 2024-12-07 12:05 | Outpatient (REF) | payer MEDICARE, OTHER, SELFPAY ==
--- OUTSIDE RECORDS SUMMARY | 2024-12-07 13:02 | XMS_ITS | Encounter Summary ---
Author Organization [employer] Address [address] [facility] [address] [place] [address] Care Team Providers Care Plant Production Worker Name Role Phone Unavailable Primary Care Provider Unavailabl e Encounter Details Date Type Department Care Team ([facility] st Contact Info) Description 07/11/2023 Abstract [facility] [address] [place] [address] Nomi Barksdale, DMD [address] [place] [address] Social History Tobacco Use Types Packs/Day Years [...] as of this encounter Plan of Treatment Not on file documented as of this encounter Visit Diagnoses Not on filedocumented in this encounter
[2024-12-08 11:24] LABS: Adenovirus PCR Not Detected (Not Detect.); Bordetella parapertussis PCR Not Detected (Not Detect.); Bordetella pertussis PCR Not Detected (Not Detect.); Chlamydia pneumoniae PCR Not Detected (Not Detect.); Coronavirus 229E PCR Not Detected (Not Detect.); Coronavirus HKU1 PCR Not Detected (Not Detect.); Coronavirus NL63 PCR Not Detected (Not Detect.); Coronavirus OC43 PCR Not Detected (Not Detect.); Human metapneumovirus PCR Not Detected (Not Detect.); Influenza A H1 PCR Not Detected (Not Detect.); Influenza A H1-2009 PCR Not Detected (Not Detect.); Influenza A H3 PCR Not Detected (Not Detect.); Influenza A PCR Not Detected (Not Detect.); Influenza B PCR Not Detected (Not Detect.); Mycoplasma pneumoniae PCR Not Detected (Not Detect.); Parainfluenza 1 PCR Not Detected (Not Detect.); Parainfluenza 2 PCR Not Detected (Not Detect.); Parainfluenza 3 PCR Not Detected (Not Detect.); Parainfluenza 4 PCR Not Detected (Not Detect.); RSV PCR Not Detected (Not Detect.); Rhino/Enterovirus PCR Not Detected (Not Detect.); SARS-CoV-2 PCR Not Detected (Not Detect.)
== END 2024-12-07 12:06 | disposition home or self-care (01) ==
LOC: HO.HSH3N 12:05
PROVIDERS: Visit Provider Nurse Practitioner Acute Care
DX: J06.9 Acute upper respiratory infection, unspecified (principal)
CPT/HCPCS: 87633

== ENCOUNTER 2024-12-08 12:05 | Inpatient (IN) | payer MEDICARE, OTHER, SELFPAY ==
[2024-12-08] VITALS (21 sets, daily range): BP systolic 67–120; BP diastolic 31–69; PULSE 68–100; RESP 14–28; TEMP 36.2–37.6; O2SAT 86–96; BMI 32.0; BMI 32.6
--- NOTE | ~2024-12-08 | CT_ITS ---
CLINICAL HISTORY: sob, hypxia ?pna CT chest without contrast Comparison: CR - XR CHEST 1V - 12/08/24 12:48 EDT CR/MA/SR - XR CHEST 1V - 06/16/22 20:16 EST Findings: No mediastinal mass or lymphadenopathy. Cardiomegaly. Severe calcified coronary artery disease. Severe calcification of the aortic valve and mitral annulus. Dilation of the descending thoracic aorta, measuring up to 3.3 cm. Otherwise normal size visualized aorta. Severe calcified atherosclerotic disease. Consolidation in the left lower lobe at the left lung base. There is a kaie-gw-onhhwghj amount of bilateral ground-glass opacity which is most prominent in the upper lobes. No pneumothorax or pleural effusion. No acute osseous or soft tissue abnormality. No acute pathology in the imaged portion of the upper abdomen. Small to moderate-sized hiatal hernia. Impression: Consolidation in the left lower lobe likely indicates pneumonia. Mild to moderate amount of bilateral ground-glass opacity which is most prominent in the upper lobes is likely infectious/inflammatory. Favored developing multifocal pneumonia. This document has been electronically signed by: Tiffany Cespedes MD on 12/08/2024 19:44:31
--- NOTE | ~2024-12-08 | XR_ITS ---
CLINICAL HISTORY: SOB Chest Radiograph Comparison: CR/FL/SR - XR CHEST 1V - 06/16/22 20:16 EST CR/SR - XR CHEST 1V - 12/06/21 13:06 EDT Findings: Cardiomegaly. Normal mediastinal contours. No pneumothorax. Question of interstitial prominence / patchy and reticular bilateral opacities. No pleural effusion. Normal upper abdomen. No acute fracture. Impression: Question mild edema. Chronic lung pathology may also be considered. This document has been electronically signed by: Tiffany Cespedes MD on 12/08/2024 13:59:41
--- NOTE | 2024-12-08 12:12 | ECG_ITS ---
Test Reason : sob Blood Pressure : */* mmHG Vent. Rate : 72 BPM Atrial Rate : * BPM P-R Int : * ms QRS Dur : 100 ms QT Int : 414 ms P-R-T Axes : * -35 12 degrees QTcB Int : 453 ms Artifact in tracing Possible sinus witth long KS? Left axis deviation Abnormal ECG When compared with ECG of 16-Jun-2022 21:44, due to artifact, cannot compare Referred By: Reggie Trevino Electronically Signed By: CRAIG HARMAN
--- NOTE | 2024-12-08 12:21 | ED.SOB ---
HPI - SOB/Dyspnea General Chief Complaint: Upper Respiratory Symptoms Stated Complaint: HYPOTENSIVE SOB Time Seen by Provider: 12/08/24 12:10 Source: patient, EMS and old records reviewed Mode of arrival: EMS Limitations: other ( dementia) History of Present Illness ED Provider: DR. Trevino HPI Narrative: 82-year-old male with history of dementia, DNR /DNI, HLD, BP H COPD, PVD, bed ridden, came in from longterm for evaluation of fever, cough and congestion For 2 days. Patient had negative COVID testing at the longterm, brought in by EMS for evaluation of shortness of breath. Initially found to be hypotensive by EMS 70/40 was given 500 cc of normal saline by EMS, O2 sat is 88% on room air improved with 2 L of nasal cannula during transportation by EMS. Patient is a DNR, DNI, no use of noninvasive ventilation. Related Data Home Medications ?Medication ?Instructions ?Recorded ?Confirmed aspirin 81 mg tablet,delayed 81 mg PO DAILY 12/06/21 12/06/21 release cyanocobalamin (vitamin B-12) 1,000 mcg PO DAILY 12/06/21 12/06/21 1,000 mcg tablet donepezil 5 mg tablet 1 tab PO DAILY@1900 12/06/21 12/06/21 famotidine 40 mg tablet 1 tab PO BEDTIME 12/06/21 12/06/21 losartan 50 mg tablet 1 tab PO DAILY 12/06/21 12/06/21 metoprolol succinate 50 mg 1 tab PO DAILY 12/06/21 12/06/21 tablet,extended release 24 hr quetiapine 25 mg tablet 1 tab PO DAILY@0900,1600 12/06/21 12/06/21 simvastatin 40 mg tablet 1 tab PO DAILY 12/06/21 12/06/21 finasteride 5 mg tablet 5 mg PO DAILY 02/22/24 02/22/24 Allergies Allergy/AdvReac Type Severity Reaction Status Date / Time No Known Allergies (No Known Allergy Verified 12/08/24 12:42 Allergies*) Review of Systems Review of Systems: Yes Unobtainable due to mental status PMFSH Social History Social History Advance Directives: Yes Advance Directives on File: Yes Advance Directives Date on File: 06/17/22 Do you have a plan to hurt others: No Plan Physical Exam Vital Signs: Vital Signs: Last Vital Signs Temp 98.3 F 12/08/24 14:17 Pulse 77 12/08/24 15:59 Resp 26 H 12/08/24 15:59 BP 91/40 L 12/08/24 15:59 Pulse Ox 94 12/08/24 15:59 O2 Del Method Nasal Cannula 12/08/24 15:59 O2 Flow Rate 2 12/08/24 15:59 Oxygen Flow Rate 2 12/08/24 12:55 BMI result Body Mass Index 32.0 Vital signs have been reviewed and appear to be correct. Blood pressure elevated. Heart rate normal. Respiratory rate normal. Temperature normal. Oxygen saturation is low in the room air. Appearance: Alert. No acute distress. Head: Normal external exam. Normocephalic. Atraumatic. No Rodriguez signs noted. No raccoon eyes noted Eyes: PERRLA. EOMI. Conjunctiva and sclera normal. Eyelids normal. ENT: TM's Normal. Pharynx normal. Uvula midline. Moist mucous membranes. No trismus noted. No drooling noted. No muffled voice noted. Neck: Normal inspection. Neck supple. FROM. No adenopathy. Thyroid Normal. No meningeal signs. No neck mass noted. CVS: Normal heart rate and rhythm. Heart sound normal. No murmurs noted. Pulses normal throughout. Respiratory: No respiratory distress. Painless inspiration. Breath sounds normal. Diffuse bilateral expiratory wheezing with prolonged expiration, bilateral basilar rales. No accessory muscle usage noted or decreased air movement noted. Abdomen: Soft and nontender. Bowel sounds normal in all 4 quadrants. No distention noted. No organomegaly noted. No visible injury noted. Back: No CVA tenderness. Full range of motion noted. Skin: Skin warm and dry. Normal skin color. Normal skin turgor. No rashes/lesions/lacerations noted. Extremities: +1 bilateral lower extremity edema. Extremities exhibit normal range of motion. Extremities nontender. Neuro: Cranial nerve exam: II-XII are grossly intact No motor deficit. No sensory deficit. Reflexes normal. Course Reevaluation(s) Reevaluation #1: I expect aspiration pneumonia now sepsis is expected, patient will receive albumin bolus of 133 and already received vanco with ceftriaxone. Time: 15:30 Reevaluation #2: 84-year-old male DNR/ DNI/ no use of BiPAP on MOLST form, came in with cough, fever. Exam showed combination of a CHF/COPD and aspiration pneumonia. 1. Combination of CHF/ COPD patient improved after Lasix , bronchodilator, Solu-Medrol. 2. Expected aspiration pneumonia. Time: 15:52 Reevaluation #3: FOCUSED EXAM WAS DONE. Improvement of lactic acid. Time: 16:30 Medications Administered Generic Name Dose Route Start Last Admin Trade Name Freq PRN Reason Stop Dose Admin Vancomycin HCl 2,000 mg in 500 mls @ 250 mls/hr 12/08/24 14:30 12/08/24 14:39 Vancomycin/Ns IV 12/08/24 16:29 250 mls/hr ONCE ONE Administration Albumin Human 100 mls @ 133.333 mls/hr 12/08/24 16:00 12/08/24 15:56 Kedbumin 25 % IV 12/08/24 17:44 133.33 mls/hr Q1H TEJAL Administration Discontinued Medications Generic Name Dose Route Start Last Admin Trade Name Freq PRN Reason Stop Dose Admin Ceftriaxone Sodium 1 gm 12/08/24 12:11 12/08/24 12:32 Ceftriaxone Sodium 1 Gm Vial IVPUSH 12/08/24 12:12 1 gm ONCE ONE Administration Albuterol Sulfate 2.5 mg/ 0 mg 12/08/24 12:38 12/08/24 12:44 Albuterol/Ipratropium 3 ml INHALE 12/08/24 12:39 1 dose ONCE ONE Administration Magnesium Sulfate 2 gm in 50 mls @ 25 mls/hr 12/08/24 12:11 12/08/24 14:39 Magnesium Sulfate/H2o IV 12/08/24 14:10 Infused ONCE ONE Infusion Lidocaine HCl 10 ml 12/08/24 14:25 12/08/24 14:39 Lidocaine Hcl 2 % Urojet 10 Ml Jel.Pf.Kelsie TOPICAL 12/08/24 14:26 10 ml ONCE ONE Administration Methylprednisolone Sodium Succinate 125 mg 12/08/24 12:11 12/08/24 12:49 Methylprednisolone Sod Succ 125 Mg Vial IVPUSH 12/08/24 12:12 Not Given ONCE ONE Methylprednisolone Sodium Succinate 125 mg 12/08/24 12:45 12/08/24 12:48 Methylprednisolone Sod Succ 125 Mg/2 Ml Vial IVPUSH 12/08/24 12:46 125 mg ONCE ONE Administration Medical Decision Making Differential Diagnosis Differential Diagnoses: The differential diagnosis associated with the presentation includes ( CHF, COPD, ASPIRATION PNEUMONIA, ELECTROLYTE DERANGEMENT, UTI, SEPSIS, SEVERE ANEMIA.) Admission/Observation Consideration of admission/observation: Escalation of care including admission/observation considered Consult Healthcare Provider Management of the patient was discussed with: Hospitalist ( Dr. Bell) Lab Data MDM Lab Attestation statement: I reviewed the patient's lab results. 12/08/24 12:30 12/08/24 12:30 Labs: Lab Results 12/08/24 12/08/24 12/08/24 Range/Units 12:29 12:30 12:39 WBC 6.7 (4.8-10.8) X10*3/uL RBC 4.39 L (4.60-5.80) X10*6/uL Hgb 12.5 L (14.0-18.0) g/dl Hct 39.8 L (42.0-52.0) % MCV 90.7 (80.0-98.0) fL MCH 28.5 (27.0-33.0) pg MCHC 31.4 (31.0-36.0) g/dl RDW 13.2 (11.0-16.0) % Plt Count 191 (160-400) X10*3/uL MPV 12.3 (9.4-12.4) fL Immature Gran % (Auto) 0.3 (0.0-0.4) % Neut % (Auto) 60.3 (45-73) % Lymph % (Auto) 16.1 L (20-40) % [place] % (Auto) 18.4 H (2-11) % Eos % (Auto) 3.7 (0-4) % Baso % (Auto) 1.2 (0-2) % Lymph # (Auto) 1.1 L (1.2-4.9) X10*3/uL [place] # (Auto) 1.2 (0.1-1.2) X10*3/uL Eos # (Auto) 0.3 (0.0-0.4) X10*3/uL Baso # (Auto) 0.1 (0.0-0.2) X10*3/uL Abs Immat Gran (auto) 0.02 (0.00-0.03) X10*3/uL Absolute Neuts (auto) 4.0 (2.0-8.3) x10*3/uL Absolute Nucleated RBC 0.000 (0.0-0.012) X10*3/uL Nucleated RBC % (auto) 0.0 (0.0-0.2) /100WBC PT 12.6 H (10.9-12.4) SEC INR 1.1 (0.9-1.1) VBG pH 7.28 L (7.32-7.43) VBG pCO2 56 mmHg VBG pO2 41 mmHg VBG HCO3 27 H (22-26) mmol/L VBG O2 Saturation 56.0 % VBG Base Excess -0.3 mmol/L Sodium 142 (135-145) mmol/L Potassium 4.7 D (3.3-5.1) mmol/L Chloride 107 (96-108) mmol/L Carbon Dioxide 25 (22-29) mmol/L Anion Gap 15 (12-20) BUN 21 H (9-16) mg/dL Creatinine 1.13 (0.5-1.4) mg/dL Estim Creat Clear Calc 59.3 Estimated GFR > 60 Random Glucose 87 (60-115) mg/dL Lactic Acid 4.0 H* (0.5-2.0) mmol/L Lactic Acid F/U @ 2Hr (0.5-2.0) mmol/L Calcium 8.6 (8.4-10.2) mg/dL Total Bilirubin 0.4 (0.0-1.0) mg/dL Direct Bilirubin 0.2 (0.0-0.5) mg/dL AST 13 (5-37) U/L ALT 8 (0-40) U/L Alkaline Phosphatase 50 (39-117) U/L Troponin I High Sens 9.2 (<3.5-35.0) ng/L B-Natriuretic Peptide 88 (<100) pg/mL Total Protein 6.1 L (6.5-8.0) g/dL Albumin 3.5 (3.5-5.0) g/dL Lipase 15 (8-78) U/L Urine Color Urine Appearance Urine pH (5.0-9.0) Ur Specific [place] (1.005-1.025) Urine Protein (Neg-Trace) mg/dL Urine Glucose (UA) (Negative) mg/dL Urine Ketones (Negative) mg/dL Urine Blood (Negative) Urine Nitrite (Negative) Ur Leukocyte Esterase (Negative) Influenza Type A (PCR) NEGATIVE (Negative) Influenza Type B (PCR) NEGATIVE (Negative) RSV RNA Qual (PCR) NEGATIVE (Negative) SARS-CoV-2 RNA (RT-PCR) NEGATIVE (Negative) 12/08/24 12/08/24 Range/Units 14:46 15:09 WBC (4.8-10.8) X10*3/uL RBC (4.60-5.80) X10*6/uL Hgb (14.0-18.0) g/dl Hct (42.0-52.0) % MCV (80.0-98.0) fL MCH (27.0-33.0) pg MCHC (31.0-36.0) g/dl RDW (11.0-16.0) % Plt Count (160-400) X10*3/uL MPV (9.4-12.4) fL Immature Gran % (Auto) (0.0-0.4) % Neut % (Auto) (45-73) % Lymph % (Auto) (20-40) % [place] % (Auto) (2-11) % Eos % (Auto) (0-4) % Baso % (Auto) (0-2) % Lymph # (Auto) (1.2-4.9) X10*3/uL [place] # (Auto) (0.1-1.2) X10*3/uL Eos # (Auto) (0.0-0.4) X10*3/uL Baso # (Auto) (0.0-0.2) X10*3/uL Abs Immat Gran (auto) (0.00-0.03) X10*3/uL Absolute Neuts (auto) (2.0-8.3) x10*3/uL Absolute Nucleated RBC (0.0-0.012) X10*3/uL Nucleated RBC % (auto) (0.0-0.2) /100WBC PT (10.9-12.4) SEC INR (0.9-1.1) VBG pH (7.32-7.43) VBG pCO2 mmHg VBG pO2 mmHg VBG HCO3 (22-26) mmol/L VBG O2 Saturation % VBG Base Excess mmol/L Sodium (135-145) mmol/L Potassium (3.3-5.1) mmol/L Chloride (96-108) mmol/L Carbon Dioxide (22-29) mmol/L Anion Gap (12-20) BUN (9-16) mg/dL Creatinine (0.5-1.4) mg/dL Estim Creat Clear Calc Estimated GFR Random Glucose (60-115) mg/dL Lactic Acid (0.5-2.0) mmol/L Lactic Acid F/U @ 2Hr 2.3 H* (0.5-2.0) mmol/L Calcium (8.4-10.2) mg/dL Total Bilirubin (0.0-1.0) mg/dL Direct Bilirubin (0.0-0.5) mg/dL AST (5-37) U/L ALT (0-40) U/L Alkaline Phosphatase (39-117) U/L Troponin I High Sens (<3.5-35.0) ng/L B-Natriuretic Peptide (<100) pg/mL Total Protein (6.5-8.0) g/dL Albumin (3.5-5.0) g/dL Lipase (8-78) U/L Urine Color Dark Yellow Urine Appearance Clear Urine pH 5.5 (5.0-9.0) Ur Specific [place] 1.025 (1.005-1.025) Urine Protein Trace (Neg-Trace) mg/dL Urine Glucose (UA) Negative (Negative) mg/dL Urine Ketones Trace (Negative) mg/dL Urine Blood Negative (Negative) Urine Nitrite Negative (Negative) Ur Leukocyte Esterase Negative (Negative) Influenza Type A (PCR) (Negative) Influenza Type B (PCR) (Negative) RSV RNA Qual (PCR) (Negative) SARS-CoV-2 RNA (RT-PCR) (Negative) Independent Interpretation I performed an independent interpretation of an: Plain X-Ray ( chest:Question mild edema. Chronic lung pathology may also be considered.) Radiology Impression Discussion of test interpretation with radiology: I have reviewed the radiologist's reading. Critical Care Time Critical Care Time Critical Care Time: Yes Total Critical Care Time: 60 Attestation: The patient was critically ill with a high probability of imminent or life-threatening deterioration. I spent greater than 30 minutes of discontinuous time evaluating the patient, delivering critical care at the bedside, discussing evaluating data with consultants. Critical care time does not include time spent performing separately billable procedures or teaching. Time spent performing critical care was 60 minutes. Discharge Plan Discharge Clinical Impression: COPD exacerbation, CHF (congestive heart failure), Aspiration pneumonia, Sepsis Patient Disposition: Admitted As Inpatient Print Language: Welsh
[2024-12-08] MEDS: cefTRIAXone sodium 1 GM VIAL IVPUSH (12:32)
[2024-12-08] MEDS: Magnesium Sulfate/H2O 2 GM/50 ML PIGGYBACK IV (12:32)
[2024-12-08 12:39] LABS: MANUAL DIFF FLAG NO
[2024-12-08] MEDS: Albuterol Sulfate 2.5 MG, Albuterol/Iprat 2.5/0.5MG 3 ML 3 ML INHALE (12:44)
--- NOTE | 2024-12-08 12:45 | PC.NURSE ---
pt comes from [facility] via ems, 18g to lt ac by ems, 20 g to rt ac inserted- labs drawn, swab obtained, blood cultures obtained. pt ekg performed- long haul truck driver applied-afib on monitor with frequent pvcs, pt O2 sat was mid 80s on room air, 2L NC applied brought it to low 90s, rr labored-accessory muscle use- course crackles throughout with productive cough with frequent suctioning, RT at bedside doing updraft. 2+ edema BLE. Pt medicated per order, call gutierrez within reach, plan of care ongoing
[2024-12-08] MEDS: methylPREDNISolone Sod Succ 125 MG/2 ML VIAL IVPUSH (12:48)
[2024-12-08 12:53] LABS: VBG Base Excess -0.3 mmol/L; VBG HCO3 27 mmol/L (22-26); VBG pCO2 56 mmHg; VBG pH 7.28 (7.32-7.43); VBG pO2 41 mmHg
[2024-12-08 12:53] LABS: Venous Blood Gas Refer to POC result
[2024-12-08 12:54] LABS: Alanine Aminotransferase 8 U/L (0-40); Albumin Level 3.5 g/dL (3.5-5.0); Alkaline Phosphatase 50 U/L (39-117); Anion Gap 15 (12-20); Aspartate Amino Transferase 13 U/L (5-37); Bilirubin Direct 0.2 mg/dL (0.0-0.5); Bilirubin Total 0.4 mg/dL (0.0-1.0); Blood Urea Nitrogen 21 mg/dL (9-16); Calcium 8.6 mg/dL (8.4-10.2); Carbon Dioxide 25 mmol/L (22-29); Chloride 107 mmol/L (96-108); Creatinine Clr Calc Pharmacy 59.3; Estimated Glomerular Filt Rate > 60; Glucose Random 87 mg/dL (60-115); Lipase 15 U/L (8-78); Potassium 4.7 mmol/L (3.3-5.1); Sodium 142 mmol/L (135-145); Total Protein 6.1 g/dL (6.5-8.0)
[2024-12-08 12:56] LABS: INTERNATIONAL NORM RATIO 1.1 (0.9-1.1); Prothrombin Time 12.6 SEC (10.9-12.4)
[2024-12-08 12:58] LABS: Basophils Absolute Auto 0.1 X10*3/uL (0.0-0.2); Basophils Percent Auto 1.2 % (0-2); Eosinophils Absolute Auto 0.3 X10*3/uL (0.0-0.4); Eosinophils Percent Auto 3.7 % (0-4); Hematocrit 39.8 % (42.0-52.0); Hemoglobin 12.5 g/dl (14.0-18.0); Imm Gran Abs Auto 0.02 X10*3/uL (0.00-0.03); Imm Gran Pct Auto 0.3 % (0.0-0.4); Lymphocytes Absolute Auto 1.1 X10*3/uL (1.2-4.9); Lymphocytes Percent Auto 16.1 % (20-40); Mean Corpuscular HGB Conc 31.4 g/dl (31.0-36.0); Mean Corpuscular Hemoglobin 28.5 pg (27.0-33.0); Mean Corpuscular Volume 90.7 fL (80.0-98.0); Mean Platelet Volume 12.3 fL (9.4-12.4); Monocytes Absolute Auto 1.2 X10*3/uL (0.1-1.2); Monocytes Percent Auto 18.4 % (2-11); Neutrophils Percent Auto 60.3 % (45-73); Platelet Count 191 X10*3/uL (160-400); Red Blood Count 4.39 X10*6/uL (4.60-5.80); Red Cell Distribution Width 13.2 % (11.0-16.0); White Blood Count 6.7 X10*3/uL (4.8-10.8)
[2024-12-08 13:00] LABS: B Type Natriuretic Peptide 88 pg/mL (<100)
[2024-12-08 13:03] LABS: Troponin-I High Sensitivity 9.2 ng/L (<3.5-35.0)
[2024-12-08 13:52] LABS: Influenza A PCR NEGATIVE (Negative); Influenza B PCR NEGATIVE (Negative); Resp Syncy Virus RNA Qual PCR NEGATIVE (Negative); SARS COV2 PCR INHOUSE NEGATIVE (Negative)
[2024-12-08 14:37] LABS: Reflex Lactate? Lactic Acid Added
[2024-12-08] MEDS: Lidocaine HCl 2 % Urojet 10 ML JEL.PF.APP TOPICAL (14:39)
[2024-12-08] MEDS: vancomycin/NS 2,000 MG/500 ML PLAST..BAG 250 MG IV (14:39)
[2024-12-08 14:52] LABS: Appearance Urine Clear; Color Urine Dark Yellow; Glucose Urine UA Negative (Negative); Leukocyte Esterase Urine Negative (Negative); Nitrite Urine Negative (Negative); PH 5.5 (5.0-9.0); Specific Gravity - Urine 1.025 (1.005-1.025); Urine Blood Negative (Negative); Urine Ketones Trace mg/dL (Negative); Urine Protein Trace mg/dL (Neg-Trace)
--- NOTE | 2024-12-08 15:02 | PC.NURSE ---
repeat lactic performed, iv abx hung per order, pt straight cathd, family at bedside, call gutierrez within reach, plan of care ongoing
[2024-12-08 15:44] LABS: ~Lactic Acid-LAB USE ONLY 2.3 mmol/L (0.5-2.0)
[2024-12-08] MEDS: Albumin Human 25 % 100 ML 133.33 ML IV ×2 (15:56→16:48)
--- NOTE | 2024-12-08 16:03 | PM.SEPSBOL4 ---
Sepsis Bolus Exclusion Sepsis Bolus Exclusion CHF/Renal Failure Date of Occurrence: 12/08/24 Time of Occurrence:: 13:50 This patient met severe sepsis criteria due to the following condition(s):: Hypotension and Lactate>=4mmol/L In my clinical judgement the administration of 30 ml/kg of crystalloid would be detrimental to this patient due to the patient's following conditions:: NYHA class III or IV Heart Failure(symptoms with low exertion or rest) and Concern for fluid overload Replace the 30 mls/kg with (Zero amount not acceptable and all fluids for severe sepsis must be given at GREATER than 125 mls/hr) *Note: One of the gama must be documented Colloids amount given in mls:: 133 At a rate of (must be > 125 cchr):: 133
--- NOTE | 2024-12-08 16:05 | PC.NURSE ---
IVF provider opted to not hang NS or LR as sepsis fluids due to the patients lung sounds. Provider did order albumin to be administered at 1600, albumin was hung per order, IV lasix was held due to the patients BP of 91/40, per provider, will re-evaluate the blood pressure when the patient completes the albumin to make the decision of giving the lasix or not. pts also states he sundowns and gets agitated around this time and feels his agitation has begun, hospitalist is at bedside and was told the same as the told me about the agitation.
--- NOTE | 2024-12-08 16:30 | PM.IMHP ---
History of Present Illness Date of Service: 12/08/24 Attending physician on admission: Pina Bell Chief Complaint: sob This is an 84-year-old male, [facility] who was sent in for evaluation of fever and shortness of breath. Patient has a history of advanced dementia and history was primarily obtained from his at the bedside. She states she was called on Tuesday but this will resume home who told her that Alejandro was coming down with a cold. He was tested for COVID-19 and tested negative x2. He had a full respiratory pathogen panel done yesterday which was also unremarkable. Today he presented to the emergency department in respiratory distress and was noted to be hypoxic with an oxygen saturation of 86% on room air. Patient was afebrile but reportedly had fever of 101 at the [facility]. Lab work mostly unremarkable except lactic acid of 4.0, repeat 2.3. Patient received IV steroids, IV magnesium as well as multiple breathing treatments and respiratory status has not improved. Chest x-ray showed the possibility of fluid but Lasix was withheld due to soft blood pressure. Patient currently receiving albumin. Review of Systems Review of Systems: Unable to obtain full review of systems due to advanced dementia Neurologic: Reports confusion Psychiatric: Psychiatric: Reports confusion PMFSH Social History Household Members: Other Household Members Other:: [facility] Housing: Custodial Do you presently have visiting nurse or other home services: Yes Patient Tobacco Use Status: Never used Tobacco Advance Directives Date on File: 06/17/22 Meds Allergies Allergy/AdvReac Type Severity Reaction Status Date / Time No Known Allergies (No Known Allergy Verified 12/08/24 12:42 Allergies*) Active Medications: Current Medications Albumin Human (Kedbumin 25 %) 100 mls @ 133.333 mls/hr IV Q1H TEJAL Stop: 12/08/24 17:44 Last Admin: 12/08/24 15:56 Dose: 133.33 mls/hr Home Medications ?Medication ?Instructions ?Recorded ?Confirmed ?Last Taken ?Type cyanocobalamin (vitamin B-12) 500 mcg PO DAILY 12/06/21 12/08/24 12/08/24 History 1,000 mcg tablet donepezil 5 mg tablet 1 tab PO BEDTIME 12/06/21 12/08/2425 History famotidine 40 mg tablet 1 tab PO BEDTIME 12/06/21 12/08/24 12/07/24 History metoprolol succinate 50 mg 1 tab PO DAILY 12/06/21 12/08/24 12/08/24 History tablet,extended release 24 hr simvastatin 40 mg tablet 1 tab PO DAILY 12/06/21 12/08/24 12/08/24 History finasteride 5 mg tablet 5 mg PO DAILY 02/22/24 12/08/24 12/08/24 History aspirin 81 mg chewable tablet 81 mg PO DAILY 12/08/24 12/08/24 12/08/24 History cholecalciferol (vitamin D3) 25 25 mcg PO DAILY 12/08/24 12/08/24 12/08/24 History mcg (1,000 unit) tablet divalproex 125 mg capsule,delayed 125 mg PO BID 12/08/24 12/08/24 12/08/24 History release sprinkle fluticasone propionate 50 1 spray intranasal DAILY 12/08/24 12/08/24 12/08/24 History mcg/actuation nasal spray,suspension gabapentin 100 mg capsule 100 mg PO BID 12/08/24 12/08/24 12/08/24 History guaifenesin 100 mg/5 mL oral liquid 300 mg PO QID 12/08/24 12/08/24 12/08/24 History ipratropium 0.5 mg-albuterol 3 mg 3 ml inhalation Q6H PRN Shortness 12/08/24 12/08/24 12/08/24 History (2.5 mg base)/3 mL nebulization Of Breath soln losartan 25 mg tablet 25 mg PO DAILY 12/08/24 12/08/24 12/08/24 History melatonin 3 mg tablet 3 mg PO BEDTIME 12/08/24 12/08/24 12/07/24 History Physical Exam Vital Signs and Narrative: Vital Signs: Last Vital Signs Temp 98.3 F 12/08/24 14:17 Pulse 77 12/08/24 15:59 Resp 26 H 12/08/24 15:59 BP 91/40 L 12/08/24 15:59 Pulse Ox 94 12/08/24 15:59 O2 Del Method Nasal Cannula 12/08/24 15:59 O2 Flow Rate 2 12/08/24 15:59 Oxygen Flow Rate 2 12/08/24 12:55 BMI result Body Mass Index 32.0 Const: Other: restless General: alert, awake and confusion Nutritional Appearance: obese Orientation/consciousness: confusion Resp: Other: course breath sounds b/l Effort & Inspection: no use of accessory muscles Cardio: Other: unable to appreciate JVD, but difficult to assess due to body habitus Rate: regular rate GI: Inspection: No distended Palpation (GI): Soft to palpation and nontender Neuro: General: moves all extremities, CN's II-XI intact bilaterally and confusion Extrem: Other: no leg edema Results Labs 12/09/24 06:21 12/09/24 06:21 Labs: Laboratory Results - last 24 hr 12/08/24 12/08/24 12/08/24 12:29 12:30 12:39 MCV 90.7 MCH 28.5 MCHC 31.4 RDW 13.2 Plt Count 191 MPV 12.3 Immature Gran % (Auto) 0.3 Neut % (Auto) 60.3 Lymph % (Auto) 16.1 L [place] % (Auto) 18.4 H Eos % (Auto) 3.7 Baso % (Auto) 1.2 Lymph # (Auto) 1.1 L [place] # (Auto) 1.2 Eos # (Auto) 0.3 Baso # (Auto) 0.1 Abs Immat Gran (auto) 0.02 Absolute Neuts (auto) 4.0 Absolute Nucleated RBC 0.000 Nucleated RBC % (auto) 0.0 PT 12.6 H INR 1.1 VBG pH 7.28 L VBG pCO2 56 VBG pO2 41 VBG HCO3 27 H VBG O2 Saturation 56.0 VBG Base Excess -0.3 Anion Gap 15 Estim Creat Clear Calc 59.3 Estimated GFR > 60 Random Glucose 87 Lactic Acid 4.0 H* Lactic Acid F/U @ 2Hr Calcium 8.6 Total Bilirubin 0.4 Direct Bilirubin 0.2 AST 13 ALT 8 Alkaline Phosphatase 50 Troponin I High Sens 9.2 B-Natriuretic Peptide 88 Total Protein 6.1 L Albumin 3.5 Lipase 15 Urine Color Urine Appearance Urine pH Ur Specific [place] Urine Protein Urine Glucose (UA) Urine Ketones Urine Blood Urine Nitrite Ur Leukocyte Esterase Influenza Type A (PCR) NEGATIVE Influenza Type B (PCR) NEGATIVE RSV RNA Qual (PCR) NEGATIVE SARS-CoV-2 RNA (RT-PCR) NEGATIVE 12/08/24 12/08/24 14:46 15:09 MCV MCH MCHC RDW Plt Count MPV Immature Gran % (Auto) Neut % (Auto) Lymph % (Auto) [place] % (Auto) Eos % (Auto) Baso % (Auto) Lymph # (Auto) [place] # (Auto) Eos # (Auto) Baso # (Auto) Abs Immat Gran (auto) Absolute Neuts (auto) Absolute Nucleated RBC Nucleated RBC % (auto) PT INR VBG pH VBG pCO2 VBG pO2 VBG HCO3 VBG O2 Saturation VBG Base Excess Anion Gap Estim Creat Clear Calc Estimated GFR Random Glucose Lactic Acid Lactic Acid F/U @ 2Hr 2.3 H* Calcium Total Bilirubin Direct Bilirubin AST ALT Alkaline Phosphatase Troponin I High Sens B-Natriuretic Peptide Total Protein Albumin Lipase Urine Color Dark Yellow Urine Appearance Clear Urine pH 5.5 Ur Specific [place] 1.025 Urine Protein Trace Urine Glucose (UA) Negative Urine Ketones Trace Urine Blood Negative Urine Nitrite Negative Ur Leukocyte Esterase Negative Influenza Type A (PCR) Influenza Type B (PCR) RSV RNA Qual (PCR) SARS-CoV-2 RNA (RT-PCR) Assessment and Plan (1) Hypoxia: Status: Acute Plan This is an 84-year-old male, resident of the [facility] with history of advanced Alzheimer's dementia, hypertension, prostate cancer, GERD, peripheral vascular disease, malignant melanoma, depression who was sent in from the [facility] with 3 day history of shortness of breath and fever. Sepsis and Acute respiratory failure with hypoxia due to COPD exacerbation and possible pneumonia meets sepsis criteria with HR>90m, RR >20; lactic acid 4-> 2.3; soft blood pressure in the 90s systolic No definitive pneumonia on chest x-ray. BNP low, but ? of mild edema of cxr.. no documented h/o CHF, no echo is system will check chest CT continue breathing treatments, steroids and IV antibiotics getting albumin rather then IVF due to concern for possible CHF blood cultures pending continue supplemental o2 to keep 02>90 Advanced Alzheimer's dementia continue baseline meds Hypertension Blood pressure low Hold baseline medication Monitor blood pressure closely PAF not listed on problem list from [facility], but is listed at [facility] unclear if pt on blood thinner, not on outpatient fill list, no med list sent from [facility] Med rec pending at the time of admission DVT ppx - lovenox code status - MOLST form DNR/DNI confirmed with at the bedside. MOLST form says no noninvasive ventilation however okay with CPAP/BIPAP if necessary if pt able to tolerate. In general family prefers non-invasive, conservative management. Patient will likely require 2 midnight stay in the hospital for management of acute respiratory failure due to probable pneumonia, rule out CHF Quality Stroke Does the patient have a stroke diagnosis?: No VTE Prior VTE?: No VTE Risk Level:: Medical - moderate - high VTE Device Contraindication: N/A - Device Ordered VTE Drug Contraindication: N/A - Med Ordered
[2024-12-08] MEDS: Enoxaparin Sodium 40 MG/0.4 ML SYRINGE SUBCUT (16:42)
--- NOTE | 2024-12-08 16:54 | PC.NURSE ---
second albumin hung per order, pt is becoming agitated which his states is normal for him at this time of day, [facility] was contacted to have med list sent over so hospitalist can order the appropriate medication for him, pt would not be able to tolerate CT scan at this time due to agitation- pt currently pulling at IV lines and attempting to pull off the oxygen.
[2024-12-08] MEDS: QUEtiapine Fumarate 25 MG TABLET PO (17:12)
[2024-12-08 17:13] LABS: Reflex Lactate? 2 Y
[2024-12-08 17:16] LABS: Troponin-I High Sensitivity 6.7 ng/L (<3.5-35.0)
[2024-12-08 17:53] LABS: ~Lactic Acid-LAB USE ONLY 1.5 mmol/L (0.5-2.0)
--- NOTE | 2024-12-08 18:01 | PHA.MEDREC ---
Pharmacy Consult ? Medication Reconciliation Pharmacy has completed the medication reconciliation. Medication administration list sent from [facility]
--- NOTE | 2024-12-08 18:23 | PC.NURSE ---
per hospitalist Chantal Pérez, this nurse is to hold the lasix. It was marked as not given in medite[facility]- provider is aware.
--- NOTE | 2024-12-08 19:21 | PC.NURSE ---
pt coughing on thick oral secretions. SpO2 94%. RT at bedside performing suctioning
--- NOTE | 2024-12-08 19:46 | PM.EVENT ---
Event Note Date of Service: 12/08/24 Event Note: Directive left to review CT of the chest. Patient does have a multifocal pneumonia left lower lobe. Patient is already on ceftriaxone and doxycycline. We will order speech therapy to assess patient's ability to swallow. Unclear if patient has been aspirating. Time Spent With Patient Time: Total time managing care of this patient today ____ minutes.
--- NOTE | 2024-12-08 19:52 | PC.NURSE ---
blanchable redness to buttocks/coccyx. pt cleaned, [place] cath placed. pillow applied for repo to left side. inpt nurse notified
[2024-12-08] MEDS: methylPREDNISolone Sod Succ 40 MG VIAL IVPUSH (23:42)
[2024-12-08] MEDS: 0.9 % Sodium Chloride Flush 3 ML SYRINGE IVFLUSH (23:42)
[2024-12-09] VITALS (12 sets, daily range): BP systolic 117–177; BP diastolic 41–92; PULSE 54–106; RESP 18–22; TEMP 35.9–36.8; O2SAT 93–99
--- NOTE | 2024-12-09 | ECG_ITS ---
Test Reason : bradycardia Blood Pressure : */* mmHG Vent. Rate : 67 BPM Atrial Rate : 67 BPM P-R Int : 276 ms QRS Dur : 106 ms QT Int : 436 ms P-R-T Axes : 9 -34 42 degrees QTcB Int : 460 ms Sinus rhythm with 1st degree A-V block with frequent Premature ventricular complexes in a pattern of bigeminy Left axis deviation Nonspecific ST abnormality Abnormal ECG When compared with ECG of 08-Dec-2024 12:35, Nonspecific T wave abnormality no longer evident in Inferior leads Premature ventricular complexes are now Present Referred By: Chantal Pérez Electronically Signed By: LEELEE JUSTICE MD
[2024-12-09 07:07] LABS: Hematocrit 40.6 % (42.0-52.0); Hemoglobin 13.3 g/dl (14.0-18.0); Mean Corpuscular HGB Conc 32.8 g/dl (31.0-36.0); Mean Corpuscular Hemoglobin 28.9 pg (27.0-33.0); Mean Corpuscular Volume 88.3 fL (80.0-98.0); Mean Platelet Volume 12.3 fL (9.4-12.4); Platelet Count 185 X10*3/uL (160-400); Red Cell Distribution Width 13.3 % (11.0-16.0); White Blood Count 9.7 X10*3/uL (4.8-10.8)
[2024-12-09 07:15] LABS: Anion Gap 15 (12-20); Blood Urea Nitrogen 14 mg/dL (9-16); Calcium 9.1 mg/dL (8.4-10.2); Carbon Dioxide 26 mmol/L (22-29); Chloride 106 mmol/L (96-108); Creatinine Clr Calc Pharmacy 95.2; Estimated Glomerular Filt Rate > 60; Glucose Random 124 mg/dL (60-115); Potassium 4.6 mmol/L (3.3-5.1); Sodium 142 mmol/L (135-145)
[2024-12-09] MEDS: Cyanocobalamin (Vitamin B-12) 500 MCG TABLET PO (09:19)
[2024-12-09] MEDS: Gabapentin 100 MG CAPSULE PO ×2 (09:19→19:50)
[2024-12-09] MEDS: Aspirin 81 MG TAB.CHEW PO (09:19)
[2024-12-09] MEDS: guaiFENesin 200 MG/10 ML 10 ML LIQUID 15 ML PO ×4 (09:19→19:48)
[2024-12-09] MEDS: Divalproex Sodium Sprinkles 125 MG CAP.DR.SPR PO ×2 (09:19→19:50)
[2024-12-09] MEDS: Cholecalciferol (Vitamin D3) 25 MCG TABLET PO (09:20)
[2024-12-09] MEDS: Atorvastatin Calcium 20 MG TABLET PO (09:20)
[2024-12-09] MEDS: Fluticasone Propionate Nasal 16 GM SPRAY 1 SPRAY NOSTRIL-B (10:15)
--- NOTE | 2024-12-09 10:38 | P.PNIM_ITS ---
Subjective Subjective Date of Service: 12/09/24 Interval History: seen and examined this morning follow up for pneumonia/respiratory failure Patient is awake, alert answers simple questions. Has advanced dementia, unable to provide any significant history Neurologic Neurologic: Reports confusion Psychiatric Psychiatric: Reports confusion Physical Exam 2 Vital Signs: Vital Signs: Last Vital Signs Temp 96.9 F 12/09/24 08:00 Pulse 62 12/09/24 08:00 Resp 18 12/09/24 08:00 BP 127/59 L 12/09/24 08:00 Pulse Ox 99 12/09/24 08:00 O2 Del Method Nasal Cannula 12/09/24 08:00 O2 Flow Rate 6 12/09/24 08:00 Oxygen Flow Rate 2 12/08/24 12:55 BMI result Body Mass Index 32.6 Const: Other: restless General: cooperative, no acute distress, alert, awake and confusion N utritional Appearance: overweight Orientation/consciousness: confusion Resp: Other: course breath sounds b/l Effort & Inspection: no respiratory distress and no use of accessory muscles Cardio: Other: unable to appreciate JVD, but difficult to assess due to body habitus Rate: regular rate GI: Inspection: No distended Palpation (GI): Soft to palpation and nontender Neuro: Other: grossly nonfocal General: moves all extremities and confusion Extrem: Other: no leg edema Objective Data Active Medications Acetaminophen (Acetaminophen 325 Mg Tablet) 650 mg PO Q6H PRN PRN Reason: Pain, Mild 1-3,fever,headache Albuterol/Ipratropium (Albuterol/Iprat 2.5/0.5mg 3 Ml Ampul.Neb) 3 ml INHALE Q4H PRN PRN Reason: Shortness of Breath/Wheezing Aspirin (Aspirin 81 Mg Tab.Chew) 81 mg PO DAILY [facility] Last Admin: 12/09/24 09:19 Dose: 81 mg Documented By: BENITA Atorvastatin Calcium (Atorvastatin Calcium 20 Mg Tablet) 20 mg PO DAILY [facility] Last Admin: 12/09/24 09:20 Dose: 20 mg Documented By: BENITA Calcium Carbonate (Calcium Carbonate 750 Mg Tab.Chew) 750 mg PO Q4H PRN PRN Reason: Heartburn Ceftriaxone Sodium (Ceftriaxone Sodium 1 Gm Vial) 1 gm IVPUSH Q24H [facility] Cyanocobalamin (Cyanocobalamin (Vitamin B-12) 500 Mcg Tablet) 500 mcg PO DAILY [facility] Last Admin: 12/09/24 09:19 Dose: 500 mcg Documented By: BENITA Divalproex Sodium (Divalproex Sodium Sprinkles 125 Mg ) 125 mg PO BID [facility] Last Admin: 12/09/24 09:19 Dose: 125 mg Documented By: BENITA Donepezil HCl (Donepezil Hcl 5 Mg Tablet) 5 mg PO BEDTIME [facility] Last Admin: 12/08/24 22:04 Dose: Not Given Documented By: SEAN Non-Admin Reason: aspiration risk Enoxaparin Sodium (Enoxaparin Sodium 40 Mg/0.4 Ml Syringe) 40 mg SUBCUT Q24H [facility] Last Admin: 12/08/24 16:42 Dose: 40 mg Documented By: LAMINE Famotidine (Famotidine 20 Mg Tablet) 40 mg PO BEDTIME [facility] Last Admin: 12/08/24 22:04 Dose: Not Given Documented By: SEAN Non-Admin Reason: aspiration risk Fluticasone Propionate (Fluticasone Propionate Nasal 16 Gm [place]) 1 spray NOSTRIL-B DAILY [facility] Last Admin: 12/09/24 10:15 Dose: 1 spray Documented By: BENITA Gabapentin (Gabapentin 100 Mg Capsule) 100 mg PO BID [facility] Last Admin: 12/09/24 09:19 Dose: 100 mg Documented By: BENITA Guaifenesin (Guaifenesin 200 Mg/10 Ml 10 Ml Liquid) 15 ml PO QID [facility] Last Admin: 12/09/24 09:19 Dose: 15 ml Documented By: BENITA Doxycycline Hyclate 100 mg/ (Sodium Chloride) 250 mls @ 166.67 mls/hr IV Q12H [facility] Methylprednisolone Sodium Succinate (Methylprednisolone Sod Succ 40 Mg Vial) 40 mg IVPUSH Q12H [facility] Last Admin: 12/08/24 23:42 Dose: 40 mg Documented By: SEAN Polyethylene Glycol (Polyethylene Glycol 3350 17 Gm Powd.Pack) 17 gm PO DAILY PRN PRN Reason: Constipation Sodium Chloride (0.9 % Sodium Chloride Flush 3 Ml Syringe) 3 ml IVFLUSH QSHIFT [facility] Last Admin: 12/09/24 07:34 Dose: Not Given Documented By: BENITA Non-Admin Reason: Previously Administered Vitamin D (Cholecalciferol (Vitamin D3) 25 Mcg Tablet) 25 mcg PO DAILY [facility] Last Admin: 12/09/24 09:20 Dose: 25 mcg Documented By: BENITA Labs 12/09/24 06:21 12/09/24 06:21 Labs: Laboratory Results - last 24 hr 12/08/24 12/08/24 12/08/24 12:29 12:30 12:39 MCV 90.7 MCH 28.5 MCHC 31.4 RDW 13.2 Plt Count 191 MPV 12.3 Immature Gran % (Auto) 0.3 Neut % (Auto) 60.3 Lymph % (Auto) 16.1 L [place] % (Auto) 18.4 H Eos % (Auto) 3.7 Baso % (Auto) 1.2 Lymph # (Auto) 1.1 L [place] # (Auto) 1.2 Eos # (Auto) 0.3 Baso # (Auto) 0.1 Abs Immat Gran (auto) 0.02 Absolute Neuts (auto) 4.0 Absolute Nucleated RBC 0.000 Nucleated RBC % (auto) 0.0 PT 12.6 H INR 1.1 VBG pH 7.28 L VBG pCO2 56 VBG pO2 41 VBG HCO3 27 H VBG O2 Saturation 56.0 VBG Base Excess -0.3 Anion Gap 15 Estim Creat Clear Calc 59.3 Estimated GFR > 60 Random Glucose 87 Lactic Acid 4.0 H* Lactic Acid F/U @ 2Hr Lactic Acid F/U @ 4Hr Calcium 8.6 Total Bilirubin 0.4 Direct Bilirubin 0.2 AST 13 ALT 8 Alkaline Phosphatase 50 Troponin I High Sens 9.2 B-Natriuretic Peptide 88 Total Protein 6.1 L Albumin 3.5 Lipase 15 Urine Color Urine Appearance Urine pH Ur Specific [place] Urine Protein Urine Glucose (UA) Urine Ketones Urine Blood Urine Nitrite Ur Leukocyte Esterase Influenza Type A (PCR) NEGATIVE Influenza Type B (PCR) NEGATIVE RSV RNA Qual (PCR) NEGATIVE SARS-CoV-2 RNA (RT-PCR) NEGATIVE 12/08/24 12/08/24 12/08/24 14:46 15:09 16:48 MCV MCH MCHC RDW Plt Count MPV Immature Gran % (Auto) Neut % (Auto) Lymph % (Auto) [place] % (Auto) Eos % (Auto) Baso % (Auto) Lymph # (Auto) [place] # (Auto) Eos # (Auto) Baso # (Auto) Abs Immat Gran (auto) Absolute Neuts (auto) Absolute Nucleated RBC Nucleated RBC % (auto) PT INR VBG pH VBG pCO2 VBG pO2 VBG HCO3 VBG O2 Saturation VBG Base Excess Anion Gap Estim Creat Clear Calc Estimated GFR Random Glucose Lactic Acid Lactic Acid F/U @ 2Hr 2.3 H* Lactic Acid F/U @ 4Hr Calcium Total Bilirubin Direct Bilirubin AST ALT Alkaline Phosphatase Troponin I High Sens 6.7 B-Natriuretic Peptide Total Protein Albumin Lipase Urine Color Dark Yellow Urine Appearance Clear Urine pH 5.5 Ur Specific [place] 1.025 Urine Protein Trace Urine Glucose (UA) Negative Urine Ketones Trace Urine Blood Negative Urine Nitrite Negative Ur Leukocyte Esterase Negative Influenza Type A (PCR) Influenza Type B (PCR) RSV RNA Qual (PCR) SARS-CoV-2 RNA (RT-PCR) 12/08/24 12/09/24 17:32 06:21 MCV 88.3 MCH 28.9 MCHC 32.8 RDW 13.3 Plt Count 185 MPV 12.3 Immature Gran % (Auto) Neut % (Auto) Lymph % (Auto) [place] % (Auto) Eos % (Auto) Baso % (Auto) Lymph # (Auto) [place] # (Auto) Eos # (Auto) Baso # (Auto) Abs Immat Gran (auto) Absolute Neuts (auto) Absolute Nucleated RBC 0.000 Nucleated RBC % (auto) 0.0 PT INR VBG pH VBG pCO2 VBG pO2 VBG HCO3 VBG O2 Saturation VBG Base Excess Anion Gap 15 Estim Creat Clear Calc 95.2 Estimated GFR > 60 Random Glucose 124 H Lactic Acid Lactic Acid F/U @ 2Hr Lactic Acid F/U @ 4Hr 1.5 Calcium 9.1 Total Bilirubin Direct Bilirubin AST ALT Alkaline Phosphatase Troponin I High Sens B-Natriuretic Peptide Total Protein Albumin Lipase Urine Color Urine Appearance Urine pH Ur Specific [place] Urine Protein Urine Glucose (UA) Urine Ketones Urine Blood Urine Nitrite Ur Leukocyte Esterase Influenza Type A (PCR) Influenza Type B (PCR) RSV RNA Qual (PCR) SARS-CoV-2 RNA (RT-PCR) Assessment and Plan (1) Aspiration pneumonia: Status: Acute Plan This is an 84-year-old male, resident of the [facility] with history of advanced Alzheimer's dementia, hypertension, prostate cancer, GERD, peripheral vascular disease, malignant melanoma, depression who was [facility] with 3 day history of shortness of breath and fever. Sepsis and acute respiratory failure with hypoxia due to COPD exacerbation and pneumonia met sepsis criteria with tachypnea and tachycardia. lactic acid initially 4, resolved with albumin. soft blood pressure in the 90s systolic initialy now improcving No definitive pneumonia on chest x-ray but chest CT showing consolidation left lower lobe. Ground-glass opacities favored to be developing multifocal pneumonia. possible component of aspiration. initial concern for possible CHF, seems less likely with low BNP and no fluid on CT scan continue breathing treatments, IV steroids and IV ceftriaxone/doxycycline blood cultures pending continue supplemental o2 to keep 02>90 seen by speech, rec NDD1 diet with nectal thick liquids; continue aspiration precautions Advanced Alzheimer's dementia alert and confused at baseline continue baseline donepezil, depakote Hypertension Blood pressure low Hold losartan, metoprolol Monitor blood pressure closely PAF not listed [facility], but [facility] listed [facility] problem list at [facility] hold metoprolol does not appear to be on AC DVT ppx - lovenox code status - MOLST form DNR/DNI confirmed with at the bedside. MOLST form says no noninvasive ventilation however okay with CPAP/BIPAP if necessary if pt able to tolerate. In general family prefers non-invasive, conservative management. Patient requires ongoing inpatient stay for management of acute respiratory failure due to probable pneumonia, rule out CHF Quality Stroke Does the patient have a stroke diagnosis?: No VTE Prior VTE?: No VTE Risk Level:: Medical - moderate - high VTE Device Contraindication: N/A - Device Ordered VTE Drug Contraindication: N/A - Med Ordered
--- NOTE | 2024-12-09 10:46 | MHC.SL.SWA ---
Speech Pathologist Impression: Moderate weakness reduced timing in oropharyngeal phase coordination Risk of Aspiration Due to: Weakness Aspiration PNA Hx of Alz Dementia Dysphasia Diet Status: Liquid Consistency and Strategies for Safe Swallow: Liquid Intake Recommendation: [place] Thick Liquid Intake Strategies: Solid Food Consistency: Dietary Recommendations: Pureed (NDD1) Additional Modifications to Solid Foods: Oral Medication Intake: Crushed with Puree Please contact the pharmacy regarding appropriate crushable or liquid drug formulations that are available whenever modified delivery is recommended. Compensatory Strategies and Precautions to be Taken for Safe Swallow: Supervision While Eating and Drinking for Safe Swallow: Total Assistance (1:1) Foods to Avoid: Swallowing Recommended Treatments: Recommendation for Speech: Inpatient Speech Therapy Comment: Pt unable to hold cup, straw provided. Cough on thins, improved toleration with NTL and purees. No overt s/s of aspiration with NTL and purees but pt presents with overall slowed coordination of oropharyngeal phases. Pt exhibits adequate oral containment and transit of bolus. Trigger of swallow intermittently delayed. Voicing clear upon speaking. Recc NDD1 with NTL, straws ok, aspiration precautions, 1:1 feeding, slow pacing, frequent breaks. MANAGER CLINICAL PHARMACY following. Frequency/Duration: Daily M-F Date Range for Service Req: Timeline to reassess: Vascular Surgery Physician Clinican/Clinical Fellow: No Supervisory Statement: I have reviewed and agree with the student/clinical fellow's documentation: N/A Speech Language Pathologist: Ksenia Rodriguez M.S., [facility]-MANAGER CLINICAL PHARMACY
[2024-12-09] MEDS: methylPREDNISolone Sod Succ 40 MG VIAL IVPUSH ×2 (11:29→23:21)
[2024-12-09] MEDS: cefTRIAXone sodium 1 GM VIAL IVPUSH (11:30)
[2024-12-09] MEDS: Magnesium Sulfate/H2O 2 GM/50 ML PIGGYBACK IV (14:04)
--- NOTE | 2024-12-09 14:14 | PC.NURSE ---
MD informed of pt's rhythm on tele and HR. metop held d/t low HR 30-40s. ELDON to be obtained and sent to
[2024-12-09 15:03] LABS: Magnesium 2.3 mg/dL (1.6-2.6)
[2024-12-09] MEDS: Metoprolol Tartrate 12.5 MG HALFTAB PO (15:22)
[2024-12-09] MEDS: Albuterol/Iprat 2.5/0.5MG 3 ML AMPUL.NEB INHALE ×2 (15:25→20:45)
--- NOTE | 2024-12-09 16:15 | MHC.CM.PN ---
CM MET WITH PTS AND SON AT BEDSIDE THEY CONFIRM PT IS A RESIDENT OF [facility] HE USES A WALKER AT TIMES, BUT REQUIRES CLOSE SUPERVISION WITH ALL AMBULATION HCP, ATIF, AND POA ON FILE PCP: MARIA VICTORIA MCKEE IMM DELIVERED DCP: RETURN TO [facility] VIA BLS EDITH IS THE HCP [phone]
[2024-12-09] MEDS: Doxycycline Hyclate 100 MG in 0.9 % Sodium Chloride 250 ML 166.67 MG IV (17:09)
[2024-12-09] MEDS: Enoxaparin Sodium 40 MG/0.4 ML SYRINGE SUBCUT (17:09)
[2024-12-09] MEDS: Donepezil HCl 5 MG TABLET PO (19:50)
[2024-12-09] MEDS: Famotidine 20 MG TABLET 40 MG PO (19:50)
[2024-12-09] MEDS: 0.9 % Sodium Chloride Flush 3 ML SYRINGE IVFLUSH (23:21)
[2024-12-10 03:22] VITALS: BP 145/56; PULSE 69; RESP 18; TEMP 36.3; O2SAT 95
[2024-12-10] MEDS: diazePAM 10 MG/2 ML CARTRIDGE 2.5 MG IVPUSH (04:03)
[2024-12-10] MEDS: Doxycycline Hyclate 100 MG in 0.9 % Sodium Chloride 250 ML 166.67 MG IV (04:27)
[2024-12-10] MEDS: Haloperidol Lactate 5 MG/ML VIAL IM (05:53)
[2024-12-10 07:04] VITALS: BP 117/82; PULSE 74; RESP 16; TEMP 36.6; O2SAT 92
[2024-12-10 07:34] VITALS: PULSE 74; RESP 16; O2SAT 94
[2024-12-10] MEDS: Albuterol/Iprat 2.5/0.5MG 3 ML AMPUL.NEB INHALE (07:34)
[2024-12-10] MEDS: Cholecalciferol (Vitamin D3) 25 MCG TABLET PO (08:27)
[2024-12-10] MEDS: Fluticasone Propionate Nasal 16 GM SPRAY 1 SPRAY NOSTRIL-B (08:28)
[2024-12-10] MEDS: Divalproex Sodium Sprinkles 125 MG CAP.DR.SPR PO (08:28)
[2024-12-10] MEDS: Atorvastatin Calcium 20 MG TABLET PO (08:28)
[2024-12-10] MEDS: Gabapentin 100 MG CAPSULE PO (08:28)
[2024-12-10] MEDS: Aspirin 81 MG TAB.CHEW PO (08:28)
[2024-12-10] MEDS: Cyanocobalamin (Vitamin B-12) 500 MCG TABLET PO (08:28)
[2024-12-10] MEDS: guaiFENesin 200 MG/10 ML 10 ML LIQUID 15 ML PO ×2 (08:28→12:39)
--- NOTE | 2024-12-10 10:16 | MHC.SL.SWA ---
Speech Pathologist Impression: Mild oropharyngeal dysphagia Risk of Aspiration Due to: Advanced dementia PNA Dysphasia Diet Status: NDD1 with NTL (straws ok), pt able to hold cup with lid/straw, unable to hold utensils, needs 1:1 feeding d/t UE weakness Liquid Consistency and Strategies for Safe Swallow: Liquid Intake Recommendation: [place] Thick Liquid Intake Strategies: Small Sips Solid Food Consistency: Dietary Recommendations: Pureed (NDD1) Additional Modifications to Solid Foods: Oral Medication Intake: Crushed with Puree Please contact the pharmacy regarding appropriate crushable or liquid drug formulations that are available whenever modified delivery is recommended. Compensatory Strategies and Precautions to be Taken for Safe Swallow: Sitting Upright (90 deg) Small Bites and Sips Alternate Liquids/Solids Rate of Ingestion Change Supervision While Eating and Drinking for Safe Swallow: Total Assistance (1:1) Foods to Avoid: Swallowing Recommended Treatments: Compens. Strategy Educat. Recommendation for Speech: Inpatient Speech Therapy Comment: Pt seen for dysphagia treatment during breakfast. Pt more alert and communicative but significantly aphasic (characterized by influence of dementia). Pt able to answer simple yes/no and contextual questions. Pt tolerating tsps of NDD1 with NTL through straw sips. Pt needs assist to eat as he cannot hold utensil. Pt can hold cup (with lid and straw) himself. PREPAROLE COUNSELING AIDE continues to follow and assess daily. Frequency/Duration: Daily M-F Date Range for Service Req: Timeline to reassess: Radiation Safety Officer Clinican/Clinical Fellow: No Supervisory Statement: I have reviewed and agree with the student/clinical fellow's documentation: N/A Speech Language Pathologist: Ksenia Rodriguez M.S., [facility]-PREPAROLE COUNSELING AIDE
--- NOTE | 2024-12-10 10:23 | P.DS_ITS ---
DS: Providers Provider Date of Service: 12/10/24 Date of admission: 12/08/24 16:28 Date of discharge: 12/10/24 Primary care physician: Unknown Physician Attending physician on discharge: Sly Salazar Discharging clinician: Chantal Pérez DS: Diagnosis Discharge Diagnosis (1) Aspiration pneumonia: Status: Acute DS: Summary Hospital Course Hospital Course: From H&P on the day of admission This is an 84-year-old male, [facility] who was sent in for evaluation of fever and shortness of breath. Patient has a history of advanced dementia and history was primarily obtained from his at the bedside. She states she was called on Tuesday but this will resume home who told her that Alejandro was coming down with a cold. He was tested for COVID-19 and tested negative x2. He had a full respiratory pathogen panel done yesterday which was also unremarkable. Today he presented to the emergency department in respiratory distress and was noted to be hypoxic with an oxygen saturation of 86% on room air. Patient was afebrile but reportedly had fever of 101 [facility] the [facility]. Lab work mostly unremarkable except lactic acid of 4.0, repeat 2.3. Patient received IV steroids, IV magnesium as well as multiple breathing treatments and respiratory status has not improved. Chest x- ray showed the possibility of fluid but Lasix was withheld due to soft blood pressure. Patient currently receiving albumin. Sepsis and acute respiratory failure with hypoxia due to COPD exacerbation and pneumonia met sepsis criteria with tachypnea and tachycardia. lactic acid initially 4, resolved with albumin. soft blood pressure initially in the 90s systolic, now improved. No definitive pneumonia on chest x-ray but chest CT showing consolidation left lower lobe. Ground-glass opacities favored to be developing multifocal pneumonia. Likely due to aspiration. Initial concern for possible CHF, seems less likely with low BNP and no fluid on CT scan. Treated with IV antibiotics, breathing treatments and steroids. blood cultures have remained negative to date. Patient will seen by speech, rec NDD1 diet with nectar thick liquids; continue aspiration precautions. Patient has remained afebrile since admission. He is now stable for [facility]. Advanced Alzheimer's dementia alert and confused at baseline. continue baseline donepezil, depakote. does not appears to be on any prn medications. was previously on seroquel unclear why this was stopped. Did require Valium and Haldol over. Patient awake, alert and calm and cooperative this morning Hypertension Blood pressure initially low and losartan and metoprolol were placed on hold. Resume metoprolol upon discharge. Monitor blood pressure and resume losartan when blood pressure allows Frequent ectopy Patient noted to have bigeminy, periods of atrial fibrillation. 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 [facility], but [facility] a problem [facility] [place] [facility] which is likely old. Increase in ectopy likely due to holding beta-wilfredo. Electrolytes were checked and were wnl. Low-dose beta-wilfredo resumed and frequency of ectopy improved. Discussed possible new afib with , given his advanced dementia she has elected to forego further workup such as echocardiogram and cardiology evaluation. For now she would like to defer starting anticoagulation to discuss with doctors at the [facility]. We will continue on baby aspirin for now. Rate has remained controlled. Patient has remained asymptomatic. Time Attestation Discharge Coordination Time (in mins): 36 Quality: Safe Use of Opioids Does Pt have an Active Cancer Diagnosis on the Problem List?: No Quality: Stroke Does the patient have a stroke diagnosis?: No Physical Exam Vital Signs: Vital Signs: Last Vital Signs Temp 97.8 F 12/10/24 07:04 Pulse 74 12/10/24 07:34 Resp 16 12/10/24 07:34 BP 117/82 12/10/24 07:04 Pulse Ox 92 12/10/24 07:04 O2 Del Method Room Air 12/10/24 07:04 O2 Flow Rate 1.5 12/10/24 03:22 Oxygen Flow Rate 2 12/08/24 12:55 BMI result Body Mass Index 32.6 Const: General: cooperative, comfortable, no acute distress, alert, awake and confusion Nutritional Appearance: obese Orientation/consciousness: c onfusion Resp: Effort & Inspection: normal respiratory effort, able to speak in complete sentences, no respiratory distress and no use of accessory muscles Cardio: Rate: regular rate GI: Inspection: No distended Palpation (GI): Soft to palpation Neuro: General: confusion Extrem: General: No pedal edema DS: Data Data Completed and Pending Labs on day of discharge: Laboratory Results - last 24 hr 12/09/24 06:21 Magnesium 2.3 Preliminary micro results at discharge 12/08/24 12:38 Blood Culture - Preliminary Blood - Venous No growth after 24 hours. 12/08/24 12:30 Blood Culture - Preliminary Blood - Venous No growth after 24 hours. Discharge Plan Discharge Patient Disposition: Xfer LTC Discharge Diagnosis: Acute respiratory failure with hypoxia and sepsis due to probable aspiration pneumonia and COPD exacerbation Referrals: [facility] [Other] - 1 Day Referral Note: RESUMPTION OF LTC Physician,Unknown J [Primary Care Provider, Medical] - 1 Week Discharge Medications: New cefuroxime axetil 500 mg tablet 500 mg PO Q12H 5 Days Qty: 10 0RF doxycycline monohydrate 100 mg tablet 100 mg PO BID 5 Days Qty: 10 0RF Continued donepezil 5 mg tablet 1 tab PO BEDTIME metoprolol succinate 50 mg tablet extended release 24 hr 1 tab PO DAILY famotidine 40 mg tablet 1 tab PO BEDTIME simvastatin 40 mg tablet 1 tab PO DAILY cyanocobalamin (vitamin B-12) 1,000 mcg Tablet 500 mcg PO DAILY ipratropium-albuterol 0.5 mg-3 mg(2.5 mg base)/3 mL Solution For Nebulization 3 ml INHALATION Q6H PRN (Reason: Shortness Of Breath) melatonin 3 mg Tablet 3 mg PO BEDTIME guaifenesin 100 mg/5 mL Liquid 300 mg PO QID aspirin 81 mg Tablet,Chewable 81 mg PO DAILY gabapentin 100 mg capsule 100 mg PO BID fluticasone propionate 50 mcg/actuation [place],Suspension 1 spray INTRANASAL DAILY Rx Instructions: administer into each nostril divalproex 125 mg capsule, delayed rel sprinkle 125 mg PO BID cholecalciferol (vitamin D3) 25 mcg (1,000 unit) Tablet 25 mcg PO DAILY finasteride 5 mg tablet 5 mg PO DAILY Held losartan 25 mg tablet 25 mg PO DAILY Hold Instructions: on hold for soft bp in setting of acute infection, resume as blood pressure allows Discharge Orders: Discharge Order (Routine); Ordered 12/10/24 Ordered By: Chantal Pérez Activity on Discharge: As tolerated Stand Alone Forms: Patient Portal Discharge page Print Language: Faroese Care Plan Goals: See below Health Concerns: Acute respiratory failure with hypoxia due to multifocal pneumonia likely due to aspiration and COPD exacerbation frequent ectopy bigeminy/trigeminy; new afib Plan of Treatment: Complete 5 more days of oral antibiotic Speech therapy has recommended pureed diet with nectar thick liquids. Recommend ongoing speech therapy, aspiration precautions and one-to-one assistance with feeding Losartan was placed on hold due to soft blood pressure, resume as tolerated discussed with family re: new afib (family has no knowledge of diagnosis of afib previously) echo and starting AC has been deferred [facility] at the request of the. continue metoprolol and asa for now Assessment: See discharge
[2024-12-10 11:02] VITALS: BP 111/59; PULSE 78; RESP 16; TEMP 36.2; O2SAT 93
--- NOTE | 2024-12-10 11:37 | MHC.CM.PN ---
PT MEDICALLY CLEARED FOR DC BACK TO LTC AT [facility], PER HOSPITALIST PT'S /HCP AGREEABLE TO PLAN, [facility] FOR BLS TRANSPORT AT 2PM.
--- NOTE | 2024-12-12 08:16 | PC.NURSE ---
Late Entry: On 12/08/24, first 100ml bag of Albumin ended at 1640 not 1648 as shown.
== END 2024-12-10 14:35 | disposition home or self-care (01) | DRG 871 ==
LOC: HO.ED 15:47 → HO.EDOVER 16:33 → HO.IMC 19:20
PROVIDERS: Admitting Provider Physician Assistant Medical; Emergency Provider Emergency Medicine; PCP Family Medicine; Visit Provider Physician Assistant Medical
DX: A41.9 Sepsis, unspecified organism (principal); J69.0 Pneumonitis due to inhalation of food and vomit; J96.01 Acute respiratory failure with hypoxia; J44.1 Chronic obstructive pulmonary disease with (acute) exacerbation; G30.9 Alzheimer's disease, unspecified; F02.80 Dementia in other diseases classified elsewhere, unspecified severity, without behavioral disturbance, psychotic disturbance, mood disturbance, and anxiety; I11.0 Hypertensive heart disease with heart failure; R00.8 Other abnormalities of heart beat; I48.0 Paroxysmal atrial fibrillation; I50.9 Heart failure, unspecified; Z20.822 Contact with and (suspected) exposure to COVID-19; Z79.82 Long term (current) use of aspirin; Z79.51 Long term (current) use of inhaled steroids; Z79.899 Other long term (current) drug therapy
CPT/HCPCS: 0241U; 36415; 71045; 71250; 80048; 80076; 81003; 82803; 83605; 83690; 83735; 83880; 84484; 85025; 85027; 85610; 87040; 92526; 92610; 93005; 94640; 99285; J0696; J1271; J1630; J1650; J1938; J2919; J3360; J3370; J3475; P9047; Q9957

== ENCOUNTER → 2024-12-08 12:12 | Outpatient (BNV) | payer MEDICARE, OTHER, SELFPAY | PROVIDERS: Admitting Provider Physician Assistant Medical; Emergency Provider Emergency Medicine; Visit Provider Internal Medicine | DX: R94.31 Abnormal electrocardiogram [ECG] [EKG] (principal); R06.02 Shortness of breath | CPT/HCPCS: 93010 ==

== ENCOUNTER → 2024-12-08 12:12 | Outpatient (BNV) | payer MEDICARE, OTHER, SELFPAY | PROVIDERS: Emergency Provider Emergency Medicine; Visit Provider Radiology Diagnostic Radiology | DX: R06.02 Shortness of breath (principal) | CPT/HCPCS: 71045; 71250 ==

== ENCOUNTER 2024-12-08 16:28 | Outpatient (BNV) | payer MEDICARE, OTHER, SELFPAY | END 2024-12-09 14:12 | PROVIDERS: Admitting Provider Physician Assistant Medical; Emergency Provider Emergency Medicine; Visit Provider Internal Medicine Cardiovascular Disease | DX: I44.0 Atrioventricular block, first degree (principal); I49.3 Ventricular premature depolarization | CPT/HCPCS: 93010 ==

== ENCOUNTER → 2024-12-08 16:28 | Outpatient (BNV) | payer MEDICARE, OTHER, SELFPAY | PROVIDERS: Admitting Provider Physician Assistant Medical; Emergency Provider Emergency Medicine; Visit Provider Nurse Practitioner Family | DX: J69.0 Pneumonitis due to inhalation of food and vomit (principal) | CPT/HCPCS: 99233; 99499 ==

== ENCOUNTER 2024-12-12 11:55 | Outpatient (AMB) | payer MEDICARE, OTHER, SELFPAY ==
--- NOTE | 2024-12-12 11:59 | A.OFFVIS_ITS ---
Intake Visit Reasons: rising PSA Intake Note: Patient is present for RISING PSA Urology Medication:FINASTERIDE,VITAMIN B12 Antibiotic Allergy:NONE Blood Thinner:ASPIRIN Floor Steward/Stewardess Required: No Allergies No Known Allergies (No Known Allergies*) Allergy (Verified 12/12/24 12:01) [facility] Social History Household Members: Other Household Members Other:: [facility] Housing: Shelter Do you presently have visiting nurse or other home services: Yes Patient Tobacco Use Status: Never used Tobacco Advance Directives Date on File: 06/17/22 service: Yes Coding
--- OUTSIDE RECORDS SUMMARY | 2024-12-12 12:38 | XMS_ITS | Encounter Summary ---
Author Organization [employer] Address [address] [place] [address] [address] [place] [address] Care Team Providers Care Charge Attendant Name Role Phone Unavailable Primary Care Provider Unavailabl e Encounter Details Date Type Department Care Team ([facility] st Contact Info) Description 07/11/2023 Abstract [facility] DENTAL [address] [place] [address] Nomi Barksdale, DMD [address] [place] [address] Social History Tobacco Use Types Packs/Day Years [...]
--- OUTSIDE RECORDS SUMMARY | 2024-12-12 12:38 | XMS_ITS | Patient Health Record ---
Author Organization [facility] Address [address] [place] [address] Care Team Providers Care Statistical Programmer Name Role Phone Lico MIX, Javier Primary Care Provider Keny Henry Unavailable [phone] Reason For Referral No Information Medications Medication SIG (Take, Route, Frequency, Duration) Notes Start Date End Date Status Colyte with Flavor Packs 240 GM 1 ml one time Orally Once a day for 1 day(s) 01/07/2012 Active Toprol XL Active Baby Aspirin Active Vitamin B Complex Ac tive metroNIDAZOLE Active Clarinex Active Simvastatin Active Quinapril-hydroCHLOROthiazid e Active Problems Problem Type SNOMED Code ICD Code Onset Dates Problem Status W/U Status Risk Notes Problem Colon cancer screening (738600872) Colon cancer screening (V76.51) Active confirmed Problem History of adenomatous polyp of colon (211535129) History of adenomatous polyp of colon (V12.72) Active confirmed Problem Family history of malignant neoplasm of gastrointestinal tract (840111193) Family history of cancer of digestive organ (V16.0) Active confirmed Plan Of Treatment Future Test Test Name Order Date COLONOSCOPY 12/28/2011 Insurance Providers Payer Name Payer Address Payer Phone Subscriber Number Group Number Insured Name Patient Relationship to Insured Coverage Start Date Coverage End Date MEDICARE OF [place] [address] [place] [address] [id number] NATANAEL CARLA Self - patient is the insured [facility] INDEMNITY [address] [place] [address] [id number] CARLA SANTOYO Self - patient is the insured Medical (General) History Medical History History ICD Code Colon polyps as above melanoma Hypertension Hyperlipidemia Denies [place],DM,CVA,Lung disease,renal dise ase Surgical History Surgery Date(Month/Year) Tonsils Teeth Melanoma resected from back in 2007
--- NOTE | 2024-12-12 16:06 | A.OFFVIS_ITS ---
Intake Intake Visit Reasons: rising PSA Allergies No Known Allergies (No Known Allergies*) Allergy (Verified 12/12/24 12:01) HPI HPI Comments History of Present Illness Details Alejandro is a pleasant male. [facility] He is seen for the following urologic conditions - prostate cancer with rising PSA Current PSA continuing to rise PSA doubling time greater than 12 months Would continue with finasteride for time being Six-month follow-up check PSA Background dementia and continuous oxygen Could consider addition of bicalutamide given logistics around GnRH injection PSA: 07/06 17, 12/04 16.5, 06/05 18.5, 12/05 26 T 178 Testosterone: 12/04 214 Imaging - 09/03 bone scan NAD Prostate cancer Initial therapy - EXBRT completed Continue surveillance [facility] Social History Household Members: Other Household Members Other:: [facility] Housing: Long-Term Do you presently have visiting nurse or other home services: Yes Patient Tobacco Use Status: Never used Tobacco Advance Directives Date on File: 06/17/22 service: Yes Review of Systems Const Denies chills and Denies fever(s) Card Reports no additional complaints and Denies syncope Resp Denies cough GI Denies abdominal pain and Denies heartburn Reports as per HPI and Denies change in libido Neuro Denies syncope Psych Denies change in libido Endo Denies change in libido Physical Exam Const General: cooperative, healthy appearing, comfortable and no acute distress Orientation/consciousness: patient oriented x3 HEENT Face and sinus: Yes normal facial exam Mouth: moist mucous membranes Neck Neck: Yes normal visual inspection, Yes full ROM and Yes trachea midline Chest Chest palpation & inspection: normal inspection of the chest Resp Effort & Inspection: normal respiratory effort, able to speak in complete sentences and no respiratory distress GI Inspection: Yes normal to inspection Back/Spine/Pelvis Cervical Spine: normal cervical lordosis Thoracic/Lumbar Spine: thoracic and lumbar spine normal to inspection Skin General skin exam: no rashes or lesions noted Neuro General: patient oriented x3, gait normal, tone normal and moves all extremities Extrem General: Yes normal to inspection and Yes capillary refill normal Assessment & Plan Assessment & Plan (1) Prostate cancer: Code(s): C61 - Malignant neoplasm of prostate (2) Rising PSA following treatment for malignant neoplasm of prostate: Code(s): R97.21 - Rising PSA following treatment for malignant neoplasm of prostate Plan Six-month follow-up PSA Patient Instructions: This note is constructed using voice recognition software. While every effort has been made to ensure accuracy milled lumber grader errors may have been included. Imaging studies, laboratory and physical exam results were discussed and reviewed in detail. No major barriers to patient understanding were identified. An opportunity to ask questions regarding the treatment plan was provided. All questions were answered. The patient expressed understanding and agreement with the above treatment plan. The patient is aware they should contact our office by phone for worsening of their current condition or the appearance of new urologic symptoms. Compliance is encouraged with any medications and followup testing that is ordered. It is a privilege to participate in the urologic care of your patient. If you have any questions or concerns regarding treatment for the above conditions, or other urologic issues, please do not hesitate to contact me. The office telephone contact is [phone]. Sincerely, Dr Armando Rushing MD, HECTOR [facility] - [facility] Compassionate Specialist Care for the Genitourinary System Coding Level of Care Code [id number] Fac sub, mod Diagnoses Prostate cancer C61 Rising PSA following treatment for malignant neoplasm of prostate R97.21
== END 2024-12-12 16:22 | disposition home or self-care (01) ==
LOC: HO.HUSV 11:55
PROVIDERS: PCP Family Medicine; Visit Provider Urology
DX: C61 Malignant neoplasm of prostate (principal); R97.21 Rising PSA following treatment for malignant neoplasm of prostate
CPT/HCPCS: 99309

== ENCOUNTER 2024-12-21 06:48 | Outpatient (REF) | payer MEDICARE, OTHER, SELFPAY ==
[2024-12-21 06:50] LABS: MANUAL DIFF FLAG NO
--- OUTSIDE RECORDS SUMMARY | 2024-12-21 06:50 | XMS_ITS | Encounter Summary ---
Author Organization [employer] Address [address] [place] [address] 7 [place] [address] Care Team Providers Care Spice Cleaner Name Role Phone Unavailable Primary Care Provider Unavailabl e Encounter Details Date Type Department Care Team ([facility] st Contact Info) Description 07/11/2023 Abstract [facility] D[facility]AL [address] [place] [address] Nomi Barksdale, DMD [address] [place] [address] Social History Tobacco Use Types Packs/Day Years [...]
--- OUTSIDE RECORDS SUMMARY | 2024-12-21 06:51 | XMS_ITS | Patient Health Record ---
Author Organization [facility] Address [address] [place] [address] Care Team Providers Care Supervisor Bakery Sanitation Name Role Phone Lico MIX, Javier Primary Care Provider Keny Henry Unavailable [phone] Reason For Referral No Information Medications Medication [...] Status Risk Notes Problem Colon cancer screening (257998946) Colon cancer screening (V76.51) Active confirmed Problem History of adenomatous polyp of colon (172180307) History of adenomatous polyp of colon (V12.72) Active confirmed Problem Family history of malignant neoplasm of gastrointestinal tract (073610712) Family history of cancer of digestive organ (V16.0) Active confirmed Plan Of Treatment Future Test Test Name Order Date COLONOSCOPY 12/28/2011 Insurance Providers Payer Name Payer Address Payer Phone Subscriber Number Group Number Insured Name Patient Relationship to Insured Coverage Start Date Coverage End Date MEDICARE OF [place] [address] [place] [address] [id number] CARLA SANTOYO Self - patient is the insured [facility] INDEMNITY [address] [place] [address] [id number] NATANAELCARLA ORTEGA Self - patient is the insured Medical (General) History Medical History History ICD Code Colon polyps as above melanoma Hypertension Hyperlipidemia Denies [place],DM,CVA,Lung disease,renal dise ase Surgical History Surgery Date(Month/Year) Tonsils Teeth Melanoma resected from back in 2007
[2024-12-21 07:45] LABS: Hematocrit 38.2 % (42.0-52.0); Hemoglobin 12.4 g/dl (14.0-18.0); Imm Gran Abs Auto 0.18 X10*3/uL (0.00-0.03); Imm Gran Pct Auto 1.2 % (0.0-0.4); Lymphocytes Absolute Auto 2.8 X10*3/uL (1.2-4.9); Mean Corpuscular HGB Conc 32.5 g/dl (31.0-36.0); Mean Corpuscular Hemoglobin 29.0 pg (27.0-33.0); Mean Corpuscular Volume 89.3 fL (80.0-98.0); NRBC Abs Auto 0.000 X10*3/uL (0.0-0.012); NRBC Pct Auto 0.0 /100WBC (0.0-0.2); Platelet Count 224 X10*3/uL (160-400); Red Blood Count 4.28 X10*6/uL (4.60-5.80); White Blood Count 15.1 X10*3/uL (4.8-10.8)
[2024-12-21 07:54] LABS: Alanine Aminotransferase 14 U/L (0-40); Albumin Level 3.3 g/dL (3.5-5.0); Alkaline Phosphatase 43 U/L (39-117); Anion Gap 12 (12-20); Aspartate Amino Transferase 20 U/L (5-37); Blood Urea Nitrogen 16 mg/dL (9-16); Calcium 8.6 mg/dL (8.4-10.2); Carbon Dioxide 30 mmol/L (22-29); Chloride 102 mmol/L (96-108); Estimated Glomerular Filt Rate > 60; Potassium 4.3 mmol/L (3.3-5.1); Sodium 140 mmol/L (135-145); Total Protein 5.8 g/dL (6.5-8.0)
== END 2024-12-21 06:49 | disposition home or self-care (01) ==
LOC: HO.HSH3N 06:48
PROVIDERS: Nurse Practitioner Acute Care; Visit Provider Internal Medicine Interventional Cardiology
DX: J18.9 Pneumonia, unspecified organism (principal)
CPT/HCPCS: 36415; 80053; 85025

== ENCOUNTER 2024-12-24 06:42 | Outpatient (REF) | payer MEDICARE, OTHER, SELFPAY ==
--- OUTSIDE RECORDS SUMMARY | 2024-12-24 06:44 | XMS_ITS | Patient Health Record ---
Author Organization [facility] Address [address] [place] [address] Care Team Providers Care Wire Coater Name Role Phone Lico MIX, Javier Primary Care Provider Keny Henry Unavailable [phone] Reason For Referral No Information Medications Medication [...] Status Risk Notes Problem Colon cancer screening (354072342) Colon cancer screening (V76.51) Active confirmed Problem History of adenomatous polyp of colon (123675025) History of adenomatous polyp of colon (V12.72) Active confirmed Problem Family history of malignant neoplasm of gastrointestinal tract (136339503) Family history of cancer of digestive organ (V16.0) Active confirmed Plan Of Treatment Future Test Test Name Order Date COLONOSCOPY 12/28/2011 Insurance Providers Payer Name Payer Address Payer Phone Subscriber Number Group Number Insured Name Patient Relationship to Insured Coverage Start Date Coverage End Date MEDICARE OF [place] [address] [place] [address] [id number] NATANAEL CARLA Self - patient is the insured [facility] INDEMNITY [address] [place] [address] [id number] NATANAELCARLA ORTEGA Self - patient is the insured Medical (General) History Medical History History ICD Code Colon polyps as above melanoma Hypertension Hyperlipidemia Denies [place],DM,CVA,Lung disease,renal dise ase Surgical History Surgery Date(Month/Year) Tonsils Teeth Melanoma resected from back in 2007
--- OUTSIDE RECORDS SUMMARY | 2024-12-24 06:44 | XMS_ITS | Encounter Summary ---
Author Organization [employer] Address [address] [place] [address] 7 [place] [address] Care Team Providers Care Tower Hoist Operator Name Role Phone Unavailable Primary Care Provider Unavailabl e Encounter Details Date Type Department Care Team ([facility] st Contact Info) Description 07/11/2023 Abstract [facility] DENTAL [address] [place] [address] Nomi Barksdale, DMD [address] [place] [address] Social History Tobacco Use Types Packs/Day Years [...]
[2024-12-24 06:45] LABS: MANUAL DIFF FLAG NO
[2024-12-24 06:53] LABS: Hematocrit 41.5 % (42.0-52.0); Hemoglobin 13.1 g/dl (14.0-18.0); Imm Gran Abs Auto 0.11 X10*3/uL (0.00-0.03); Imm Gran Pct Auto 0.9 % (0.0-0.4); Lymphocytes Absolute Auto 2.0 X10*3/uL (1.2-4.9); Mean Corpuscular HGB Conc 31.6 g/dl (31.0-36.0); Mean Corpuscular Hemoglobin 28.6 pg (27.0-33.0); Mean Corpuscular Volume 90.6 fL (80.0-98.0); NRBC Abs Auto 0.000 X10*3/uL (0.0-0.012); NRBC Pct Auto 0.0 /100WBC (0.0-0.2); Platelet Count 196 X10*3/uL (160-400); Red Blood Count 4.58 X10*6/uL (4.60-5.80); White Blood Count 12.3 X10*3/uL (4.8-10.8)
[2024-12-24 07:09] LABS: Alanine Aminotransferase 15 U/L (0-40); Albumin Level 3.2 g/dL (3.5-5.0); Alkaline Phosphatase 42 U/L (39-117); Anion Gap 16 (12-20); Aspartate Amino Transferase 26 U/L (5-37); Blood Urea Nitrogen 18 mg/dL (9-16); Calcium 8.7 mg/dL (8.4-10.2); Carbon Dioxide 24 mmol/L (22-29); Chloride 106 mmol/L (96-108); Estimated Glomerular Filt Rate > 60; Potassium 5.2 mmol/L (3.3-5.1); Sodium 141 mmol/L (135-145); Total Protein 6.1 g/dL (6.5-8.0)
== END 2024-12-24 06:43 | disposition home or self-care (01) ==
LOC: HO.HSH3N 06:42
PROVIDERS: Nurse Practitioner Acute Care; Visit Provider Internal Medicine Interventional Cardiology
DX: J18.9 Pneumonia, unspecified organism (principal)
CPT/HCPCS: 36415; 80053; 85025

== ENCOUNTER 2025-01-03 06:29 | Inpatient (IN) | payer MEDICARE, OTHER, SELFPAY ==
[2025-01-03] VITALS (30 sets, daily range): BP systolic 62–146; BP diastolic 28–100; PULSE 68–122; RESP 13–38; TEMP 37.6–38.7; O2SAT 88–97; BMI 25.8; BMI 34.8; BMI 35.2
--- NOTE | ~2025-01-03 | FL_ITS ---
EXAMINATION: XR BARIUM SWALLOW CLINICAL INFORMATION: Dysphagia COMPARISON: None available. TECHNIQUE: Modified barium swallow was performed under lateral fluoroscopy with patient on the stretcher. Various consistencies of food with barium was administered by the speech therapist. FINDINGS: On oral administration of nectar, honey, puree consistency food coated with barium there is slow propagation of bolus from the oral cavity through the pharynx into esophagus. There is mild retention of food in the valleculae and piriform sinuses which clears with several subsequent dry swallows. No laryngeal penetration or aspiration seen. FLUOROSCOPY TIME: 5 minute 23 seconds DOSE AREA PRODUCT: [id number] uGy-m2 (microgray-meter squared) FL/FL Modified Barium Swallow IMPRESSION: Slow oral phase with moderate retention of food in the valleculae and piriform sinuses clears with subsequent several dry swallows. No laryngeal penetration and aspiration. Correlate with speech therapy report.. Electronically signed by: James Toney MD 01/08/2025 02:59 PM EDT
--- NOTE | ~2025-01-03 | XR_ITS ---
EXAMINATION: XR CHEST CLINICAL INFORMATION: aspiration, hypoxia COMPARISON: December 08, 2024. TECHNIQUE: Frontal view of the chest was obtained. FINDINGS: Prominence of the interstitial markings and patchy opacities bilaterally extending from the perihilar region more pronounced in the right hemithorax. Vertically oriented faint linear opacity in the periphery right hemithorax likely skinfold. No gross pneumothorax. Cardiomediastinal silhouette margins are indistinct. Calcified plaque thoracic aorta. Multilevel spondylosis. Degenerative changes in the shoulders. Osteopenia versus osteoporosis. Vascular clips in the medial aspect right brachial soft tissues/right axillary/right breast shadow. XR/XR chest 1V IMPRESSION: Pulmonary edema versus less likely multifocal pneumonia. Worsened since prior exam. Electronically signed by: Pipo Shay MD 01/03/2025 07:58 AM EDT
--- NOTE | ~2025-01-03 | XR_ITS ---
EXAMINATION: XR CHEST CLINICAL INFORMATION: follow up PNA COMPARISON: 01/03/2025, 12/08/2024. TECHNIQUE: Frontal view of the chest was obtained. FINDINGS: There is cardiac enlargement. Mediastinal and hilar contours appear normal. Aortic mural calcification. Bilateral perihilar and pulmonary hazy opacities throughout both lungs, most confluent in the lower lungs. This appears similar and unchanged. No effusions. No pneumothorax. Degenerative spinal changes present. Surgical clips noted right axilla. XR/XR chest 1V IMPRESSION: No significant interval change in the examination. Electronically signed by: Dalton Pagan MD 01/07/2025 08:28 AM EDT
--- NOTE | 2025-01-03 06:38 | ECG_ITS ---
Test Reason : SOB Blood Pressure : */* mmHG Vent. Rate : 108 BPM Atrial Rate : 108 BPM P-R Int : 352 ms QRS Dur : 88 ms QT Int : 334 ms P-R-T Axes : * -42 21 degrees QTcB Int : 447 ms Sinus tachycardia with 1st degree A-V block with frequent Premature ventricular complexes in a pattern of bigeminy Left axis deviation Abnormal ECG When compared with ECG of 09-Dec-2024 14:12, Vent. rate has increased by 41 bpm Referred By: Jael Gaines Electronically Signed By: Bulmaro Mcdaniels
--- NOTE | 2025-01-03 06:52 | ED.SOB ---
HPI - SOB/Dyspnea General Chief Complaint: Dyspnea Stated Complaint: 91% on 15 liters Hypotensive Time Seen by Provider: 01/03/25 06:36 Source: EMS Mode of arrival: EMS Limitations: altered mental status History of Present Illness ED Provider: Dr. Jael Gaines HPI Narrative: [facility]. Patient was found tachypneic, short of breath, oxygen saturation in the high 80s/low 90s. According to the staff, patient was recently discharge, less than a month ago for aspiration pneumonia. They believe that patient has been aspirating throughout the night. Seems the patient had an episode of vomiting prior to arrival. Patient was food on a non-rebreather and arrived to emergency room. On arrival, patient vomited and clearly aspirated. Patient is unable to give any history. Per patient's documentation, he is DNR DNI but do transferred to hospital. Related Data Home Medications ?Medication ?Instructions ?Recorded ?Confirmed cyanocobalamin (vitamin B-12) 500 mcg PO DAILY 12/06/21 12/08/24 1,000 mcg tablet donepezil 5 mg tablet 1 tab PO BEDTIME 12/06/21 12/08/24 famotidine 40 mg tablet 1 tab PO BEDTIME 12/06/21 12/08/24 metoprolol succinate 50 mg 1 tab PO DAILY 12/06/21 12/08/24 tablet,extended release 24 hr simvastatin 40 mg tablet 1 tab PO DAILY 12/06/21 12/08/24 finasteride 5 mg tablet 5 mg PO DAILY 02/22/24 12/08/24 aspirin 81 mg chewable tablet 81 mg PO DAILY 12/08/24 12/08/24 cholecalciferol (vitamin D3) 25 25 mcg PO DAILY 12/08/24 12/08/24 mcg (1,000 unit) tablet divalproex 125 mg capsule,delayed 125 mg PO BID 12/08/24 12/08/24 release sprinkle fluticasone propionate 50 1 spray intranasal DAILY 12/08/24 12/08/24 mcg/actuation nasal spray,suspension gabapentin 100 mg capsule 100 mg PO BID 12/08/24 12/08/24 guaifenesin 100 mg/5 mL oral liquid 300 mg PO QID 12/08/24 12/08/24 ipratropium 0.5 mg-albuterol 3 mg 3 ml inhalation Q6H PRN Shortness 12/08/24 12/08/24 (2.5 mg base)/3 mL nebulization Of Breath soln losartan 25 mg tablet 25 mg PO DAILY 12/08/24 12/08/24 Held on 12/10/24. Instructions: on hold for soft bp in setting of acute infection, resume as blood pressure allows melatonin 3 mg tablet 3 mg PO BEDTIME 12/08/24 12/08/24 Previous Rx's ?Medication ?Instructions ?Recorded cefuroxime axetil 500 mg tablet 500 mg PO Q12H 5 days #10 tabs 12/10/24 doxycycline monohydrate 100 mg 100 mg PO BID 5 days #10 tabs 12/10/24 tablet Allergies Allergy/AdvReac Type Severity Reaction Status Date / Time No Known Allergies Allergy Unverified 01/03/25 06:36 Review of Systems Review of Systems: Yes Unobtainable due to mental status PMFSH Past Medical History Medical History (Updated 01/03/25 @ 08:15 by Jael Gaines MD) History of prostate cancer Aspiration pneumonia COPD exacerbation Social History Social History Household Members: Other Household Members Other:: [facility] Housing: [facility] Do you presently have visiting nurse or other home services: Yes Unable to assess alcohol history related to: Unknown Patient Tobacco Use Status: Never used Tobacco Use of substances other than those prescribed or required for medical reasons: Unable to respond Advance Directives: Yes Advance Directives on File: Yes Advance Directives Date on File: 06/17/22 service: Yes Physical Exam Exam: Exam: Appearance: Alert. Barely arousable, vomiting and aspirating, ill-appearing Eyes: Pupils equal, round and reactive to light. ENT: Pharynx normal. Neck: Normal inspection. Neck supple. No lymph nodes noted. No crepitus CVS: Normal heart rate and rhythm. Pulses normal. Normal S1 and S2 Respiratory: Patient has bilateral rales crackles, no wheezing at this time. Abdomen: Soft and nontender. No rigidity. No distention. Skin: Skin warm and dry. Normal skin color. Normal skin turgor. Extremities: +1 pitting edema bilaterally. Neuro: Patient altered, unable to participating cranial nerve assessment Psych: Agitated Vital Signs: Vital Signs: Last Vital Signs Temp 101.4 F H 01/03/25 07:40 Pulse 98 01/03/25 07:40 Resp 25 H 01/03/25 07:40 BP 142/92 H 01/03/25 06:33 Pulse Ox 97 01/03/25 07:40 O2 Del Method High Flow Nasal C annula 01/03/25 07:40 O2 Flow Rate 50 01/03/25 07:40 BMI result Body Mass Index 34.8 Course Course Course Narrative: Patient receiving empiric treatment with vancomycin and Zosyn for aspiration pneumonia and hospital-acquired pneumonia. Patient receiving fluids based on ideal weight of 73 kg, patient is obese On arrival, patient vomiting, aspirating. Patient is DNR DNI, ideally, patient should be intubated for airway protection. However, this does not go along with patient's wishes. Patient is on high-flow, 50% FiO2. All of patient's labs pending Patient will likely need an ICU admission, patient will likely decompensate Medications Administered Generic Name Dose Route Start Last Admin Trade Name Freq PRN Reason Stop Dose Admin Vancomycin HCl 2,000 mg in 500 mls @ 250 mls/hr 01/03/25 06:44 01/03/25 07:26 Vancomycin/Ns IV 01/03/25 08:43 250 mls/hr ONCE ONE Administration Sodium Chloride 2,200 mls @ 999 mls/hr 01/03/25 06:50 01/03/25 07:24 Ns IVCONT 01/03/25 09:02 999 mls/hr .Q2H13M ONE Administration Medical Decision Making Medical Decision Making [facility] Narrative: My interpretation of EKG: Sinus tachycardia, first-degree AV block, heart rate 108, no ST segment depression or elevation, T-wave inversion in V4 through V6 My interpretation of labs: Patient's white blood cell count 16.2, no significant abnormality in patient's venous blood gases My interpretation of chest x-ray: Patient has bilateral pneumonia, much worse right lower lobe pneumonia. Patient's x-rays look worse than the x-rays of a proximally a month ago when he was admitted. Chemistry pending. Overall, patient is very ill-appearing. Patient has already been covered for aspiration pneumonia and hospital-acquired pneumonia. Patient is DNR DNI, patient will likely decompensate fairly quickly At this time, 07:07, sepsis protocol has been started. 08:12, I discussed the patient with Dr. Pereyra, patient being accepted to the ICU. -focused exam that at this time, at 08:12 a.m. Differential Diagnosis Differential Diagnoses: The differential diagnosis associated with the presentation includes (As above) Admission/Observation Consideration of admission/observation: Escalation of care including admission/observation considered Consult Healthcare Provider Management of the patient was discussed with: Hospitalist Lab Data MDM Lab Attestation statement: I reviewed the patient's lab results. 01/03/25 06:47 01/03/25 06:47 Labs: Lab Results 01/03/25 01/03/25 Range/Units 06:47 06:58 WBC 16.2 H (4.8-10.8) X10*3/uL RBC 5.08 (4.60-5.80) X10*6/uL Hgb 14.9 (14.0-18.0) g/dl Hct 45.3 (42.0-52.0) % MCV 89.2 (80.0-98.0) fL MCH 29.3 (27.0-33.0) pg MCHC 32.9 (31.0-36.0) g/dl RDW 13.7 (11.0-16.0) % Plt Count 267 D (160-400) X10*3/uL MPV 12.3 (9.4-12.4) fL Immature Gran % (Auto) 0.3 (0.0-0.4) % Neut % (Auto) 84.1 H (45-73) % Lymph % (Auto) 7.5 L (20-40) % [place] % (Auto) 7.5 (2-11) % Eos % (Auto) 0.3 (0-4) % Baso % (Auto) 0.3 (0-2) % Lymph # (Auto) 1.2 (1.2-4.9) X10*3/uL [place] # (Auto) 1.2 (0.1-1.2) X10*3/uL Eos # (Auto) 0.1 (0.0-0.4) X10*3/uL Baso # (Auto) 0.1 (0.0-0.2) X10*3/uL Abs Immat Gran (auto) 0.05 H (0.00-0.03) X10*3/uL Absolute Neuts (auto) 13.6 H (2.0-8.3) x10*3/uL Absolute Nucleated RBC 0.000 (0.0-0.012) X10*3/uL Nucleated RBC % (auto) 0.0 (0.0-0.2) /100WBC VBG pH 7.33 (7.32-7.43) VBG pCO2 48 mmHg VBG pO2 47 mmHg VBG HCO3 26 (22-26) mmol/L VBG O2 Saturation 70.0 % VBG Base Excess -0.3 mmol/L Sodium 141 (135-145) mmol/L Potassium 3.9 D (3.3-5.1) mmol/L Chloride 107 (96-108) mmol/L Carbon Dioxide 23 (22-29) mmol/L Anion Gap 15 (12-20) BUN 18 H (9-16) mg/dL Creatinine 1.14 (0.5-1.4) mg/dL Estim Creat Clear Calc 57.7 Estimated GFR > 60 Random Glucose 110 (60-115) mg/dL Lactic Acid 2.9 H* (0.5-2.0) mmol/L Calcium 8.8 (8.4-10.2) mg/dL Magnesium 1.7 (1.6-2.6) mg/dL Troponin I High Sens 12.1 D (<3.5-35.0) ng/L B-Natriuretic Peptide 79 (<100) pg/mL Independent Interpretation I performed an independent interpretation of an: Plain X-Ray Radiology Impression Discussion of test interpretation with radiology: I have reviewed the radiologist's reading. Radiologist Impression: Prominence of the interstitial markings and patchy opacities bilaterally extending from the perihilar region more pronounced in the right hemithorax. Vertically oriented faint linear opacity in the periphery right hemithorax likely skinfold. No gross pneumothorax. Cardiomediastinal silhouette margins are indistinct. Calcified plaque thoracic aorta. Multilevel spondylosis. Degenerative changes in the shoulders. Osteopenia versus osteoporosis. Vascular clips in the medial aspect right brachial soft tissues/right axillary/right breast shadow. XR/XR chest 1V IMPRESSION: Pulmonary edema versus less likely multifocal pneumonia. Worsened since prior exam. Critical Care Time Critical Care Time Critical Care Time: Yes Total Critical Care Time: 75 Attestation: I have personally provided critical care time. Time includes review of lab data, radiology results, discussion with consultants, and monitoring for potential decompensation. Intervention performed as documented. Discharge Plan Discharge Clinical Impression: Multifocal pneumonia Patient Disposition: Admitted As Inpatient Print Language: Cypriot
--- NOTE | 2025-01-03 06:53 | PC.RT ---
pt placed on hfnc . dnr/dni , no niv. [facility] well 50l 100%. NTS copious white frothy. pt vomitted when oral suctioned. aware.
[2025-01-03 06:57] LABS: MANUAL DIFF FLAG NO
[2025-01-03 06:58] LABS: Hematocrit 45.3 % (42.0-52.0); Hemoglobin 14.9 g/dl (14.0-18.0); Imm Gran Abs Auto 0.05 X10*3/uL (0.00-0.03); Imm Gran Pct Auto 0.3 % (0.0-0.4); Lymphocytes Absolute Auto 1.2 X10*3/uL (1.2-4.9); Mean Corpuscular HGB Conc 32.9 g/dl (31.0-36.0); Mean Corpuscular Hemoglobin 29.3 pg (27.0-33.0); Mean Corpuscular Volume 89.2 fL (80.0-98.0); NRBC Abs Auto 0.000 X10*3/uL (0.0-0.012); NRBC Pct Auto 0.0 /100WBC (0.0-0.2); Platelet Count 267 X10*3/uL (160-400); Red Blood Count 5.08 X10*6/uL (4.60-5.80); White Blood Count 16.2 X10*3/uL (4.8-10.8)
[2025-01-03 07:00] LABS: Venous Blood Gas Refer to POC result
[2025-01-03 07:02] LABS: VBG HCO3 26 mmol/L (22-26); VBG O2 % Saturation 70.0 %
[2025-01-03 07:20] LABS: Anion Gap 15 (12-20); Blood Urea Nitrogen 18 mg/dL (9-16); Calcium 8.8 mg/dL (8.4-10.2); Carbon Dioxide 23 mmol/L (22-29); Chloride 107 mmol/L (96-108); Creatinine Clr Calc Pharmacy 57.7; Estimated Glomerular Filt Rate > 60; Magnesium 1.7 mg/dL (1.6-2.6); Potassium 3.9 mmol/L (3.3-5.1); Sodium 141 mmol/L (135-145)
[2025-01-03 07:24] LABS: B Type Natriuretic Peptide 79 pg/mL (<100)
[2025-01-03] MEDS: vancomycin/NS 2,000 MG/500 ML PLAST..BAG 250 MG IV (07:26)
[2025-01-03 07:27] LABS: Troponin-I High Sensitivity 12.1 ng/L (<3.5-35.0)
--- OUTSIDE RECORDS SUMMARY | 2025-01-03 07:28 | XMS_ITS | Patient Health Record ---
Author Organization [facility] Address [address] [place] [address] Care Team Providers Care Care Taker Name Role Phone Lico (RETIRED) Javier MIX Primary Care Provider Unavailable Keny Garner Unavailable [phone] Reason For Referral No Information Medications Medication [...] Status Risk Notes Problem Colon cancer screening (503409946) Colon cancer screening (V76.51) Active confirmed Problem History of adenomatous polyp of colon (512193029) History of adenomatous polyp of colon (V12.72) Active confirmed Problem Family history of malignant neoplasm of gastrointestinal tract (460235328) Family history of cancer of digestive organ (V16.0) Active confirmed Plan Of Treatment Future Test Test Name Order Date COLONOSCOPY 12/28/2011 Insurance Providers Payer Name Payer Address Payer Phone Subscriber Number Group Number Insured Name Patient Relationship to Insured Coverage Start Date Coverage End Date MEDICARE OF [place] [address] [facility] [place] [address] [id number] CARLA SANTOYO Self - patient is the insured [facility] INDEMNITY [address] [place] [phone] [id number] NATANAELCARLA ORTEGA Self - patient is the insured Medical (General) History Medical History History ICD Code Colon polyps as above melanoma Hypertension Hyperlipidemia Denies [place],DM,CVA,Lung disease,renal dise ase Surgical History Surgery Date(Month/Year) Tonsils Teeth Melanoma resected from back in 2008
--- OUTSIDE RECORDS SUMMARY | 2025-01-03 07:28 | XMS_ITS | Encounter Summary ---
Author Organization [employer] Address [address] [place] [address] [address] [place] [address] Care Team Providers Care Central Office Repairer Supervisor Name Role Phone Unavailable Primary Care Provider Unavailabl e Encounter Details Date Type Department Care Team ([facility] st Contact Info) Description 07/11/2023 Abstract [facility] DENTAL [address] [place] [address] Nomi Barksdale, DMD [address] [place] [address] Social History Tobacco Use Types Packs/Day Years [...]
--- NOTE | 2025-01-03 08:08 | PC.NURSE ---
Addendum entered by Kyleigh Cunha RN 01/03/25 08:08: Patient is 84-year-old male, [facility] who was sent in for evaluation of fever and shortness of breath. Patient has a history of advanced dementia. Today he presented to the emergency department in respiratory distress and was noted to be hypoxic and placed on high flow. Patient is febrile, rectal temp inserted. Patient lethargic but resistive to care. color television console monitor maitained and frequent ectopy Patient noted to have bigeminy, periods of atrial fibrillation. Sepsis protocol initiated. Lungs with diffuse rhonchi. Suctions for thick lewis secretions. Abdomen soft, distended, non-tender with positive bowel sounds. Buttocks extremely reddened with no open areas noted. Mcclain inserted and minimal UO noted. LE cool and pale. Original Note: Medical History History of prostate cancer Aspiration pneumonia COPD exacerbation
[2025-01-03 08:18] LABS: Appearance Urine Clear; Glucose Urine UA Negative (Negative); PH 6.5 (5.0-9.0); Specific Gravity - Urine 1.015 (1.005-1.025); UMIC TRIGGER UACC YES
[2025-01-03 08:25] LABS: Resp Syncy Virus RNA Qual PCR NEGATIVE (Negative); SARS COV2 PCR INHOUSE NEGATIVE (Negative)
--- NOTE | 2025-01-03 08:45 | PC.NURSE ---
Resp therapy at the bedside and high flow changed to humified o2 at 9L via NC
[2025-01-03 08:55] LABS: Reflex Lactate? Lactic Acid Added
--- NOTE | 2025-01-03 09:17 | PC.RT ---
RTs came into room and heard Pt with significant rhonci, PT was already on HFNC at 30 lpm and 100%. RTs used yankauer to suction Pt, and also used nasosuctioning and removed copious amounts of thick creamy, brown-green secretions from the Pts airway. RTs decided to insert a NPA to more effectively suction the Pt in the future. RTs then replaced HFNC with cool aerosol therapy 8 lpm and 35%.
--- NOTE | 2025-01-03 09:24 | PC.NURSE ---
BP 66/41. MD Miller made aware, instructed to start levophed drip.
[2025-01-03 09:33] LABS: ~Lactic Acid-LAB USE ONLY 2.6 mmol/L (0.5-2.0)
--- NOTE | 2025-01-03 09:43 | PHA.MEDREC ---
Pharmacy Consult ? Medication Reconciliation Pharmacy has completed the medication reconciliation. Utilized list from [facility] [place] to confirm med list.
--- NOTE | 2025-01-03 10:03 | PC.NURSE ---
Sepsis fluids infusing and patient transitioned to ICU
--- NOTE | 2025-01-03 10:21 | PM.CCHP ---
History of Present Illness Date of Service: 01/03/25 Chief Complaint: Respiratory distress 84-year-old gentleman with underlying history of hypertension, COPD, CHF, skilled nursing resident in DNR/DNI/do not apply noninvasive positive pressure ventilation code status presented on 01/03/2025 from [facility] with hypoxia and respiratory distress secondary to ongoing aspiration. Patient required high-flow nasal cannula to maintain normal oximetry. He also has developed hypotension requiring pressor support and was admitted to the intensive care unit. Review of Systems Review of Systems: Yes Unobtainable due to mental condition Cardiovascular: Cardiovascular: Reports dyspnea Respiratory: Respiratory: Reports dyspnea [facility] Past Medical History Medical History (Updated 01/03/25 @ 10:27 by Jose Elias Miller MD) History of prostate cancer Aspiration pneumonia COPD exacerbation Social History Social History Household Members: Other [facility] Do you presently have visiting nurse or other home services: Yes Unable to assess alcohol history related to: Unknown Patient Tobacco Use Status: Never used Tobacco Use of substances other than those prescribed or required for medical reasons: Unable to respond Advance Directives: Yes Advance Directives on File: Yes Advance Directives Date on File: 06/17/22 service: Yes Meds Allergies Allergy/AdvReac Type Severity Reaction Status Date / Time No Known Allergies Allergy Unverified 01/03/25 06:36 Active Medications: Current Medications Heparin Sodium (Porcine) (Heparin Sodium,Porcine 5,000 Unit/Ml Vial) 5,000 unit SUBCUT Q8H [facility] Last Admin: 01/03/25 09:07 Dose: 5,000 unit Norepinephrine Bitartrate (Levophed) 8 mg in 250 mls @ 0 mls/hr IVCONT .Q0M [facility]; Protocol Last Admin: 01/03/25 09:35 Dose: 0.05 mcg/kg/min, 10.31 mls/hr Home Medications ?Medication ?Instructions ?Recorded ?Confirmed ?Last Taken ?Type cyanocobalamin (vitamin B-12) 500 mcg PO DAILY 12/06/21 01/03/25 12/08/24 History 1,000 mcg tablet donepezil 5 mg tablet 5 mg PO BEDTIME 12/06/21 01/03/25 12/07/24 History famotidine 40 mg tablet 40 mg PO BEDTIME 12/06/21 01/03/25 12/07/24 History metoprolol succinate 50 mg 50 mg PO DAILY 12/06/21 01/03/25 12/08/24 History tablet,extended release 24 hr simvastatin 40 mg tablet 1 tab PO DAILY 12/06/21 01/03/25 12/08/24 History finasteride 5 mg tablet 5 mg PO DAILY 02/22/24 01/03/25 12/08/24 History aspirin 81 mg chewable tablet 81 mg PO DAILY 12/08/24 01/03/25 12/08/24 History cholecalciferol (vitamin D3) 25 25 mcg PO DAILY 12/08/24 01/03/25 12/08/24 History mcg (1,000 unit) tablet divalproex 125 mg capsule,delayed 125 mg PO BID 12/08/24 01/03/25 12/08/24 History release sprinkle fluticasone propionate 50 1 spray intranasal DAILY 12/08/24 01/03/25 12/08/24 History mcg/actuation nasal spray,suspension gabapentin 100 mg capsule 100 mg PO BID 12/08/24 01/03/25 12/08/24 History losartan 25 mg tablet 25 mg PO DAILY 12/08/24 01/03/25 12/08/24 History Held on 12/10/24. Instructions: on hold for soft bp in setting of acute infection, resume as blood pressure allows melatonin 3 mg tablet 3 mg PO BEDTIME 12/08/24 01/03/25 12/07/24 History acetaminophen 325 mg tablet 650 mg PO Q4H PRN Fever Or Pain 01/03/25 01/03/25 Unknown History albuterol sulfate 2.5 mg/3 mL 2.5 mg inhalation Q4H PRN 01/03/25 01/03/25 Unknown History (0.083 %) solution for nebulization Shortness Of Breath Or Wheezing ketoconazole 1 % shampoo (Nizoral 1 appl topical WE 01/03/25 01/03/25 Unknown History A-D) sennosides 8.6 mg tablet (senna) 17.2 mg PO BID PRN Constipation 01/03/25 01/03/25 Unknown History Physical Exam Vital Signs: Vital Signs: Last Vital Signs Temp 100.9 F H 01/03/25 09:28 Pulse 93 01/03/25 09:35 Resp 25 H 01/03/25 09:28 BP 66/41 L 01/03/25 09:35 Pulse Ox 91 L 01/03/25 09:28 O2 Del Method Humidified O2 01/03/25 09:28 O2 Flow Rate 9 01/03/25 09:28 BMI result Body Mass Index 34.8 Const: General: no acute distress and lethargic Orientation/consciousness: lethargic Eyes: Sclerae: sclerae normal EOM: EOMs intact bilaterally Neck: Neck: Yes no lymphadenopathy, Yes trachea midline and Yes supple Resp: Effort & Inspection: normal respiratory effort and no respiratory distress Auscultation: crackles (Bilateral) Cardio: Rate: regular rate Rhythm: regular rhythm Heart sounds: no gallops, no murmurs and no rubs GI: Palpation (GI): Soft to palpation and Other GI palpation findings present ( Nontender) Auscultation: normal bowel sounds Extrem: General: No clubbing, No cyanosis and Yes edema (Trace bilateral) Results Labs 01/03/25 06:47 01/03/25 06:47 Labs: Laboratory Results - last 24 hr 01/03/25 01/03/25 01/03/25 06:47 06:48 06:58 MCV 89.2 MCH 29.3 MCHC 32.9 RDW 13.7 Plt Count 267 D MPV 12.3 Immature Gran % (Auto) 0.3 Neut % (Auto) 84.1 H Lymph % (Auto) 7.5 L [place] % (Auto) 7.5 Eos % (Auto) 0.3 Baso % (Auto) 0.3 Lymph # (Auto) 1.2 [place] # (Auto) 1.2 Eos # (Auto) 0.1 Baso # (Auto) 0.1 Abs Immat Gran (auto) 0.05 H Absolute Neuts (auto) 13.6 H Absolute Nucleated RBC 0.000 Nucleated RBC % (auto) 0.0 VBG pH 7.33 VBG pCO2 48 VBG pO2 47 VBG HCO3 26 VBG O2 Saturation 70.0 VBG Base Excess -0.3 Anion Gap 15 Estim Creat Clear Calc 57.7 Estimated GFR > 60 Random Glucose 110 Lactic Acid 2.9 H* Lactic Acid F/U @ 2Hr Calcium 8.8 Magnesium 1.7 B-Natriuretic Peptide 79 Urine Color Urine Appearance Urine pH Ur Specific Success Urine Protein Urine Glucose (UA) Urine Ketones Urine Blood Urine Nitrite Ur Leukocyte Esterase Urine RBC Urine WBC Ur Squamous Epith Cells Urine Bacteria Hyaline Casts Influenza Type A (PCR) NEGATIVE Influenza Type B (PCR) NEGATIVE RSV RNA Qual (PCR) NEGATIVE SARS-CoV-2 RNA (RT-PCR) NEGATIVE 01/03/25 01/03/25 08:11 09:10 MCV MCH MCHC RDW Plt Count MPV Immature Gran % (Auto) Neut % (Auto) Lymph % (Auto) [place] % (Auto) Eos % (Auto) Baso % (Auto) Lymph # (Auto) [place] # (Auto) Eos # (Auto) Baso # (Auto) Abs Immat Gran (auto) Absolute Neuts (auto) Absolute Nucleated RBC Nucleated RBC % (auto) VBG pH VBG pCO2 VBG pO2 VBG HCO3 VBG O2 Saturation VBG Base Excess Anion Gap Estim Creat Clear Calc Estimated GFR Random Glucose Lactic Acid Lactic Acid F/U @ 2Hr 2.6 H* Calcium Magnesium B-Natriuretic Peptide Urine Color Yellow Urine Appearance Clear Urine pH 6.5 Ur Specific Success 1.015 Urine Protein Negative Urine Glucose (UA) Negative Urine Ketones Negative Urine Blood Small (1+) H Urine Nitrite Negative Ur Leukocyte Esterase Negative Urine RBC 0-2 Urine WBC 0-5 Ur Squamous Epith Cells 0-2 Urine Bacteria None Seen Hyaline Casts 6-10 Influenza Type A (PCR) Influenza Type B (PCR) RSV RNA Qual (PCR) SARS-CoV-2 RNA (RT-PCR) Imaging Radiologist's Impressions: Impressions Chest X-Ray 01/03/25 05:46 IMPRESSION: Pulmonary edema versus less likely multifocal pneumonia. Worsened since prior exam. Electronically signed by: Pipo Shay MD 01/03/2025 07:58 AM EDT Assessment and Plan (1) Acute respiratory failure with hypoxia: Status: Acute (2) Aspiration pneumonia: Status: Acute Plan Assessment: 84-year-old gentleman in DNR/DNI, do not apply noninvasive positive pressure ventilation code status admitted with acute hypoxic respiratory failure and shock secondary to aspiration pneumonitis versus pneumonia requiring pressor and nasal cannula support Plan: Neuro: No acute issues. Cardiac: Shock, distributive versus septic, continue to titrate off pressor support as tolerated. Pulmonary: Acute hypoxic respiratory failure secondary to pulmonary aspiration, continue to titrate off supplemental oxygen as tolerated. Continue empiric antibiotics. Renal: No acute issues. Endo: No acute issues. GI: No acute issues. ID: No acute issues Heme/Onc: No acute issues. Psych: No acute issues. Miscellaneous: No acute issues. Prophylaxis: Heparin Diet: NPO Critical care time spent: 60 minutes
--- NOTE | 2025-01-03 10:23 | PC.RT ---
Pt transferred from ER to ICU on 6 lpm oxy mask. Noted 6 nasal trumpet in L nare. Pt congested, able to cough and clear some sec. LS bilat coarse rhonchi requiring freq NT sxn in er for lg amts thick lewis sec. Pt currently on 35% cool mist.
[2025-01-03 11:13] LABS: Reflex Lactate? 2 Y
[2025-01-03 11:49] LABS: ~Lactic Acid-LAB USE ONLY 2.7 mmol/L (0.5-2.0)
--- NOTE | 2025-01-03 16:33 | HO.SKINPHOTO ---
Location: Coccyx/Sacrum Category: Blanchable Redness Device: Rectal Temperature Probe
--- NOTE | 2025-01-03 16:37 | PC.NURSE ---
Patient oxygen titrated from 35% and 8L down to 28% and 5L of Aerosol Mask Patient remains lethargic and confused, lung sounds ronchorous with audible wet breathing, frequent changes seen in tele between sinus with a first degree and bigeminy nasal trumpet utilized with 14fr suction catheter for moderate lewis and blood tinged secretions, Yankauer used orally for moderate thick, lewis, blood streaked secretion urinary catheter putting out minimal caitlin urine approx 20cc/hr skin intact with blanching redness to coccyx and pink foams to blanchable heels patient repositioned Q2, requires some redirecting with care, titrating levo as needed per protocol (see MAR)
[2025-01-03] MEDS: Dextrose 5 % and Lactated Ring 1,000 ML 50 ML IVCONT (22:38)
[2025-01-04] VITALS (22 sets, daily range): BP systolic 106–153; BP diastolic 43–93; PULSE 72–86; RESP 12–20; TEMP 36.3–37.6; O2SAT 88–97; BMI 35.2
--- NOTE | 2025-01-04 04:04 | PC.NURSE ---
Addendum entered by Javier Horvath RN 01/04/25 06:44: LEVOPHED DRIP WEANED OFF..BP STABLE...K-PO4 AND ALBUMEN INFUSING PER AUG..HOOPER WITH IMPROVING OUTPUT Original Note: CARE ASSUMED 7PM..AWAKE..ORIENTED TO PERSON ONLY..MERLOS.SOME SPEECH COHERENT BUT PERIODS OF GIBBERISH....AGITATED WITH CARE...ATTEMPTS TO GRAB OR STRIKE STAFF...REPEATEDLY PULLING OFF O2 AND GRABBING AT LINES...DESATURATES WITH O2 OFF...NO SEDATIVES TO BE GIVEN D/T RESPIRATORY STATUS PER PROVIDER..BILATERAL SOFT WRIST RESTRAINTS PLAED FOR AIRWAY/LINE SAFETY PER PROVIDER...HOOPER WITH MINIMAL OUTPUT PER SHIFT REPORT..APPROX 10 ML/HR....RAISING THICK TANNISH-WHITE SPUTUM...PROVIDER STARTED AMPICILLIN Q6H FOR ASPIRATION PNEUMONIA....D5LR 50 CC/HR STARTED BY PROVIDER FOR PERSISTANT LOW URINE OUTPUT WITH INCREASED OUTPUT TO 35 CC/HR...LEVOPHED DRIP PER AUG...MAINTAINED COOL AEROSOL FIO2 28%....NSR 1ST-DEGREE AV-BLOCK WITH FREQUENT PVC'S AT TIMES,,,NASAL TRUMPET REMOVED D/T PATIENT CLEARING SECRETIONS... UPDATED VIA PHONE AT PER REQUEST
[2025-01-04 05:16] LABS: MANUAL DIFF FLAG NO
[2025-01-04 05:17] LABS: Hematocrit 33.9 % (42.0-52.0); Hemoglobin 11.3 g/dl (14.0-18.0); Imm Gran Abs Auto 0.05 X10*3/uL (0.00-0.03); Imm Gran Pct Auto 0.3 % (0.0-0.4); Lymphocytes Absolute Auto 1.3 X10*3/uL (1.2-4.9); Mean Corpuscular HGB Conc 33.3 g/dl (31.0-36.0); Mean Corpuscular Hemoglobin 28.9 pg (27.0-33.0); Mean Corpuscular Volume 86.7 fL (80.0-98.0); NRBC Abs Auto 0.000 X10*3/uL (0.0-0.012); NRBC Pct Auto 0.0 /100WBC (0.0-0.2); Platelet Count 191 X10*3/uL (160-400); Red Blood Count 3.91 X10*6/uL (4.60-5.80); White Blood Count 15.0 X10*3/uL (4.8-10.8)
[2025-01-04 05:33] LABS: Alanine Aminotransferase 7 U/L (0-40); Albumin Level 2.9 g/dL (3.5-5.0); Alkaline Phosphatase 40 U/L (39-117); Anion Gap 10 (12-20); Aspartate Amino Transferase 15 U/L (5-37); Blood Urea Nitrogen 16 mg/dL (9-16); Calcium 8.0 mg/dL (8.4-10.2); Carbon Dioxide 25 mmol/L (22-29); Chloride 110 mmol/L (96-108); Creatinine Clr Calc Pharmacy 98.9; Estimated Glomerular Filt Rate > 60; Magnesium 1.6 mg/dL (1.6-2.6); Potassium 3.6 mmol/L (3.3-5.1); Sodium 141 mmol/L (135-145); Total Protein 5.5 g/dL (6.5-8.0)
[2025-01-04 05:41] LABS: VBG HCO3 26 mmol/L (22-26); VBG O2 % Saturation 88.0 %
[2025-01-04 05:42] LABS: Venous Blood Gas Refer to POC result
[2025-01-04] MEDS: Potassium Phosphate/NS 15 MMOL/250 ML PLAST..BAG 62.5 MMOL IV (06:12)
[2025-01-04] MEDS: Albumin Human 25 % 100 ML IV ×3 (06:18→21:39)
--- NOTE | 2025-01-04 08:19 | PC.RT ---
Pt HFNC d/c this am, pt awake and coop on 2 lpm n/c. Nasal trumpet removed. Pt has strong spontaneous cough.
--- NOTE | 2025-01-04 11:33 | P.PNCC_ITS ---
Subjective Subjective Date of Service: 01/04/25 Interval History: 84-year-old gentleman with underlying history of hypertension, COPD, CHF, detention resident in DNR/DNI/do not apply noninvasive positive pressure ventilation code status presented on 01/03/2025 from [facility] with hypoxia and respiratory distress secondary to ongoing aspiration. Patient required high- flow nasal cannula to maintain normal oximetry. He also has developed hypotension requiring pressor support and was admitted to the intensive care unit. No events overnight. Titrated off pressor support and high-flow nasal cannula down to regular nasal cannula. Critical Care Time (minutes): 60 Physical Exam 2 Vital Signs: Vital Signs: Last Vital Signs Temp 97.3 F 01/04/25 07:00 Pulse 80 01/04/25 10:00 Resp 18 01/04/25 10:00 BP 123/46 L 01/04/25 10:00 Pulse Ox 91 L 01/04/25 10:00 O2 Del Method Room Air 01/04/25 10:00 O2 Flow Rate 1 01/04/25 09:00 FiO2 28 01/04/25 07:00 Oxygen Flow Rate 35 01/03/25 08:52 BMI result Body Mass Index 35.2 Const: General: no acute distress, alert and awake Eyes: Sclerae: sclerae normal EOM: EOMs intact bilaterally Neck: Neck: Yes no lymphadenopathy, Yes trachea midline and Yes supple Resp: Effort & Inspection: normal respiratory effort and no respiratory distress Auscultation: clear to auscultation bilaterally Cardio: Rate: regular rate Rhythm: regular rhythm Heart sounds: no gallops, no murmurs and no rubs GI: Palpation (GI): Soft to palpation and Other GI palpation findings present ( Nontender) Auscultation: normal bowel sounds Extrem: General: Yes no pedal edema, No clubbing and No cyanosis Objective Data Labs 01/04/25 05:08 01/04/25 05:08 Labs: Laboratory Results - last 24 hr 01/03/25 01/04/25 01/04/25 11:25 05:08 05:11 WBC 15.0 H RBC 3.91 L D Hgb 11.3 L D Hct 33.9 L D MCV 86.7 MCH 28.9 MCHC 33.3 RDW 13.7 Plt Count 191 D MPV 12.2 Immature Gran % (Auto) 0.3 Neut % (Auto) 81.3 H Lymph % (Auto) 8.5 L [place] % (Auto) 8.9 Eos % (Auto) 0.6 Baso % (Auto) 0.4 Lymph # (Auto) 1.3 [place] # (Auto) 1.3 H Eos # (Auto) 0.1 Baso # (Auto) 0.1 Abs Immat Gran (auto) 0.05 H Absolute Neuts (auto) 12.2 H Absolute Nucleated RBC 0.000 Nucleated RBC % (auto) 0.0 VBG pH 7.50 H VBG pCO2 33 VBG pO2 56 VBG HCO3 26 VBG O2 Saturation 88.0 VBG Base Excess 3.9 Sodium 141 Potassium 3.6 Chloride 110 H Carbon Dioxide 25 Anion Gap 10 L BUN 16 Creatinine 0.67 Estim Creat Clear Calc 98.9 Estimated GFR > 60 Random Glucose 109 Lactic Acid F/U @ 4Hr 2.7 H* Calcium 8.0 L D Phosphorus 2.1 L Magnesium 1.6 Total Bilirubin 0.6 AST 15 ALT 7 Alkaline Phosphatase 40 Total Protein 5.5 L Albumin 2.9 L Microbiology Microbiology Results: Microbiology 01/03/25 06:50 Blood - Venous Blood Culture - Preliminary No growth after 24 hours. 01/03/25 06:50 Blood - Venous Blood Culture - Preliminary No growth after 24 hours. Progress Note: A&P Assessment and plan (1) Aspiration pneumonia: Status: Acute (2) Acute respiratory failure with hypoxia: Status: Acute (3) Alzheimer's dementia: Status: Acute Plan Assessment: 84-year-old gentleman in DNR/DNI, do not apply noninvasive positive pressure ventilation code status admitted with acute hypoxic respiratory failure and shock secondary to aspiration pneumonitis versus pneumonia requiring pressor and nasal cannula support Plan: Neuro: No acute issues. Underlying Alzheimer's dementia. Cardiac: Shock, distributive versus septic, resolved, titrated off pressor support. Pulmonary: Acute hypoxic respiratory failure secondary to pulmonary aspiration, improved, continue to titrate off supplemental oxygen as tolerated. Continue empiric antibiotics. Renal: No acute issues. Endo: No acute issues. GI: No acute issues. ID: No acute issues Heme/Onc: No acute issues. Psych: No acute issues. Miscellaneous: No acute issues. Prophylaxis: Heparin Diet: Pending swallow evaluation Critical care time spent: 60 minutes Quality Stroke Does the patient have a stroke diagnosis?: No VTE Prior VTE?: No VTE Risk Level:: Medical - moderate - high VTE Device Contraindication: Treatment Not Indicated VTE Drug Contraindication: N/A - Med Ordered
--- NOTE | 2025-01-04 16:09 | MHC.CM.PN ---
Pt w/dementia at baseline; Information obtained from spouse/HCP and EMR. Pt is a LTC resident of the [facility] and will return when medically stable. He requires physical assistance for all ADL's and transfers. IMM in chart, HCP/MOLST on file and verified. CM to follow
[2025-01-04] MEDS: Dextrose 5 % and Lactated Ring 1,000 ML 50 ML IVCONT (16:28)
[2025-01-05] VITALS (8 sets, daily range): BP systolic 93–156; BP diastolic 45–79; PULSE 59–123; RESP 16–22; TEMP 36.3–37.3; O2SAT 89–93
[2025-01-05] MEDS: Albumin Human 25 % 100 ML IV (03:09)
[2025-01-05 07:28] LABS: Imm Gran Abs Auto 0.06 X10*3/uL (0.00-0.03); Imm Gran Pct Auto 0.6 % (0.0-0.4); MANUAL DIFF FLAG SCAN; NRBC Abs Auto 0.000 X10*3/uL (0.0-0.012); NRBC Pct Auto 0.0 /100WBC (0.0-0.2); SCAN SMEAR FLAG 1
[2025-01-05 07:30] LABS: Hematocrit 30.7 % (42.0-52.0); Hemoglobin 10.2 g/dl (14.0-18.0); Lymphocytes Absolute Auto 0.9 X10*3/uL (1.2-4.9); Mean Corpuscular HGB Conc 33.2 g/dl (31.0-36.0); Mean Corpuscular Hemoglobin 28.9 pg (27.0-33.0); Mean Corpuscular Volume 87.0 fL (80.0-98.0); Red Blood Count 3.53 X10*6/uL (4.60-5.80)
[2025-01-05 07:32] LABS: PLT ABN DIST 1
[2025-01-05 07:58] LABS: Albumin Level 3.9 g/dL (3.5-5.0); Anion Gap 13 (12-20); Blood Urea Nitrogen 9 mg/dL (9-16); Calcium 8.5 mg/dL (8.4-10.2); Carbon Dioxide 25 mmol/L (22-29); Chloride 108 mmol/L (96-108); Creatinine Clr Calc Pharmacy 108.6; Estimated Glomerular Filt Rate > 60; Magnesium 1.8 mg/dL (1.6-2.6); Potassium 4.0 mmol/L (3.3-5.1); Sodium 142 mmol/L (135-145)
[2025-01-05 08:09] LABS: White Blood Count 10.9 X10*3/uL (4.8-10.8)
[2025-01-05 08:10] LABS: Platelet Count 143 X10*3/uL (160-400)
[2025-01-05 10:09] LABS: Procalcitonin 0.78 ng/mL
[2025-01-05] MEDS: Dextrose 5 % and Lactated Ring 1,000 ML 50 ML IVCONT (10:34)
--- NOTE | 2025-01-05 11:20 | P.PNIM_ITS ---
Subjective Subjective Date of Service: 01/05/25 Interval History: not verbal on 2L O2 via NC Review of Systems Review of Systems: Yes Unobtainable due to mental status Physical Exam 2 Vital Signs: Vital Signs: Last Vital Signs Temp 98.0 F 01/05/25 07:31 Pulse 67 01/05/25 07:31 Resp 19 01/05/25 07:31 BP 118/45 L 01/05/25 07:31 Pulse Ox 92 01/05/25 07:31 O2 Del Method Nasal Cannula 01/05/25 07:31 O2 Flow Rate 2 01/05/25 07:31 FiO2 28 01/04/25 07:00 Oxygen Flow Rate 35 01/03/25 08:52 BMI result Body Mass Index 35.2 Gen: in no acute distress HEENT: sclera anicteric, moist mucus membranes Neck: supple Lungs: diminished bilaterally Heart: regular rate and rhythm, no murmurs Abd: soft, non-tender, non-distended Ext: no edema Skin: warm/well-perfused Neuro: non verbal, no focal weakness Psych: impaired insight Objective Data Active Medications Ampicillin Sodium/Sulbactam Sodium (Ampicillin Sodium/Sulbactam Na 3 Gm Vial) 3 gm IV Q6H [facility] Last Admin: 01/05/25 10:32 Dose: 3 gm Documented By: MILLER Heparin Sodium (Porcine) (Heparin Sodium,Porcine 5,000 Unit/Ml Vial) 5,000 unit SUBCUT Q8H [facility] Last Admin: 01/05/25 10:31 Dose: 5,000 unit Documented By: MILLER Dextrose/Lactated Ringer's (D5lr) 1,000 mls @ 50 mls/hr IVCONT .Q20H [facility] Last Admin: 01/05/25 10:34 Dose: 50 mls/hr Documented By: MILLER Labs 01/05/25 05:54 01/05/25 05:54 Labs: Laboratory Results - last 24 hr 01/05/25 05:54 MCV 87.0 MCH 28.9 MCHC 33.2 RDW 13.8 Plt Count 143 L D MPV Not Reportable Immature Gran % (Auto) 0.6 H Neut % (Auto) 81.5 H Lymph % (Auto) 8.4 L [place] % (Auto) 8.5 Eos % (Auto) 0.7 Baso % (Auto) 0.3 Lymph # (Auto) 0.9 L [place] # (Auto) 0.9 Eos # (Auto) 0.1 Baso # (Auto) 0.0 Abs Immat Gran (auto) 0.06 H Absolute Neuts (auto) 8.9 H Absolute Nucleated RBC 0.000 Nucleated RBC % (auto) 0.0 Smear Tech's Comments VERIFIED Anion Gap 13 Estim Creat Clear Calc 108.6 Estimated GFR > 60 Random Glucose 95 Calcium 8.5 D Phosphorus 2.7 Magnesium 1.8 Albumin 3.9 Procalcitonin 0.78 Microbiology Microbiology Results: Microbiology 01/03/25 06:50 Blood Culture - Preliminary Blood - Venous No growth after 48 hours. 01/03/25 06:50 Blood Culture - Preliminary Blood - Venous No growth after 48 hours. Assessment and Plan (1) Aspiration pneumonia: Status: Acute Assessment and Plan: d3 for 84yo M resident of [facility] with advanced dementia admitted to ICU with hypoxic respiratory failure with distributive vs septic shock requiring HFNC and pressor support, stepped down to telemetry 01/04 acute hypoxic respiratory failure due to multifocal/aspiration pneumonia - trend PCT, BCx negative, 01/03- amp/sulbactam, NPO pending CHANGE MANAGEMENT MANAGER consultation - supplemental O2, wean as tolerated distributive vs septic shock - weaned off pressors, hold off on resuming metoprolol succinate + losartan for now VTE ppx - UFH dispo - eventual return to LTC In my clinical judgment, the patient requires continued inpatient hospitalization for the following reasons: hypoxia, NPO, IV ABX Total time managing care of this patient today: 40 minutes. Quality Stroke Does the patient have a stroke diagnosis?: No VTE Prior VTE?: No VTE Risk Level:: Medical - moderate - high VTE Device Contraindication: Treatment Not Indicated VTE Drug Contraindication: N/A - Med Ordered
--- NOTE | 2025-01-05 11:25 | MHC.SLORD ---
Speech Language Pathology Order Status: ALCOHOL STILL OPERATOR attempted to perform bedside dysphagia evaluation, but unable to. Patient minimally responsive, not following directions or responding to oral swabbing/oral care. No PO trials given d/t safety risk. Dr. Bell notified via for[MD] message.
[2025-01-05] MEDS: Albuterol/Iprat 2.5/0.5MG 3 ML AMPUL.NEB INHALE ×2 (14:56→20:44)
[2025-01-06] VITALS (10 sets, daily range): BP systolic 107–139; BP diastolic 54–79; PULSE 79–99; RESP 17–22; TEMP 36.3–37.2; O2SAT 90–94
[2025-01-06 07:12] LABS: Hematocrit 35.4 % (42.0-52.0); Hemoglobin 11.7 g/dl (14.0-18.0); Mean Corpuscular HGB Conc 33.1 g/dl (31.0-36.0); Mean Corpuscular Hemoglobin 29.2 pg (27.0-33.0); Mean Corpuscular Volume 88.3 fL (80.0-98.0); NRBC Abs Auto 0.000 X10*3/uL (0.0-0.012); NRBC Pct Auto 0.0 /100WBC (0.0-0.2); Platelet Count 161 X10*3/uL (160-400); Red Blood Count 4.01 X10*6/uL (4.60-5.80); White Blood Count 11.2 X10*3/uL (4.8-10.8)
[2025-01-06] MEDS: Albuterol/Iprat 2.5/0.5MG 3 ML AMPUL.NEB INHALE ×4 (07:41→19:06)
[2025-01-06 08:06] LABS: Anion Gap 13 (12-20); Blood Urea Nitrogen 7 mg/dL (9-16); Calcium 8.5 mg/dL (8.4-10.2); Carbon Dioxide 26 mmol/L (22-29); Chloride 107 mmol/L (96-108); Creatinine Clr Calc Pharmacy 122.7; Estimated Glomerular Filt Rate > 60; Magnesium 1.7 mg/dL (1.6-2.6); Potassium 2.9 mmol/L (3.3-5.1); Sodium 143 mmol/L (135-145)
--- NOTE | 2025-01-06 09:45 | HO.PM.IMPN ---
Subjective Subjective Date of Service: 01/06/25 Interval History: still on 2L O2 more awake but still not making any sense Review of Systems Review of Systems: Yes Unobtainable due to mental status Physical Exam Vital Signs: Vital Signs: Last Vital Signs Temp 98.3 F 01/06/25 07:55 Pulse 81 01/06/25 07:55 Resp 19 01/06/25 07:55 BP 110/78 01/06/25 07:55 Pulse Ox 91 L 01/06/25 07:55 O2 Del Method Oxymask 01/06/25 07:55 O2 Flow Rate 2 01/06/25 07:55 FiO2 28 01/04/25 07:00 Oxygen Flow Rate 35 01/03/25 08:52 BMI result Body Mass Index 35.2 Gen: in no acute distress HEENT: sclera anicteric, moist mucus membranes Neck: supple Lungs: diminished bilaterally Heart: regular rate and rhythm, no murmurs Abd: soft, non-tender, non-distended Ext: no edema Skin: warm/well-perfused Neuro: non verbal, no focal weakness Psych: impaired insight Objective Data Active Medications Albuterol Sulfate (Albuterol Sulfate (0.083%) 2.5 Mg/3 Ml Vial.Neb) 2.5 mg INHALE Q2H PRN PRN Reason: Shortness of Breath/Wheezing Albuterol/Ipratropium (Albuterol/Iprat 2.5/0.5mg 3 Ml Ampul.Neb) 3 ml INHALE RQ4H WHILE AWAKE [facility] Last Admin: 01/06/25 07:41 Dose: 3 ml Documented By: SARA Ampicillin Sodium/Sulbactam Sodium (Ampicillin Sodium/Sulbactam Na 3 Gm Vial) 3 gm IV Q6H [facility] Last Admin: 01/06/25 03:01 Dose: 3 gm Documented By: ETHEL Heparin Sodium (Porcine) (Heparin Sodium,Porcine 5,000 Unit/Ml Vial) 5,000 unit SUBCUT Q8H [facility] Last Admin: 01/06/25 01:14 Dose: 5,000 unit Documented By: ETHEL Potassium Chloride (Potassium Chloride/H20) 10 meq in 100 mls @ 100 mls/hr IV Q1H [facility] Stop: 01/06/25 12:14 Methylprednisolone Sodium Succinate (Methylprednisolone Sod Succ 40 Mg/Ml Vial) 40 mg IVPUSH Q24H [facility] Pharmacy Consult (Consult Rx Parenteral Nutrition Ordering) 1 each MISCELLANE DAILY PRN PRN Reason: Consult order Labs 01/06/25 06:26 01/06/25 06:26 Labs: Laboratory Results - last 24 hr 01/05/25 01/06/25 05:54 06:26 MCV 88.3 MCH 29.2 MCHC 33.1 RDW 13.5 Plt Count 161 MPV 12.2 Absolute Nucleated RBC 0.000 Nucleated RBC % (auto) 0.0 Anion Gap 13 Estim Creat Clear Calc 122.7 Estimated GFR > 60 Random Glucose 103 Calcium 8.5 Phosphorus 3.1 Magnesium 1.7 Procalcitonin 0.78 Microbiology Microbiology Results: Microbiology 01/03/25 06:50 Blood Culture - Preliminary Blood - Venous No growth after 48 hours. 01/03/25 06:50 Blood Culture - Preliminary Blood - Venous No growth after 48 hours. Assessment and Plan (1) Aspiration pneumonia: Status: Acute Assessment and Plan: d4 for 84yo M resident of [facility] with advanced dementia admitted to ICU with hypoxic respiratory failure with distributive vs septic shock requiring HFNC and pressor support, stepped down to telemetry 01/04 acute hypoxic respiratory failure due to multifocal/aspiration pneumonia and COPD exacerbation - trend PCT, BCx negative, 01/03- amp/sulbactam, NPO pending TOUCH UP CARVER consultation- place on IV maintenance fluids and order PPN - start methylprednisolone 01/06- - supplemental O2, wean as tolerated hypoK - replete IV, recheck level tomorrow distributive vs septic shock - weaned off pressors, hold off on resuming metoprolol succinate + losartan for now VTE ppx - UFH dispo - eventual return to LTC In my clinical judgment, the patient requires continued inpatient hospitalization for the following reasons: hypoxia, NPO, IV ABX Total time managing care of this patient today: 40 minutes. Quality Stroke Does the patient have a stroke diagnosis?: No VTE Prior VTE?: No VTE Risk Level:: Medical - moderate - high VTE Device Contraindication: Treatment Not Indicated VTE Drug Contraindication: N/A - Med Ordered
--- NOTE | 2025-01-06 10:01 | PC.NURSE ---
pt desat to 80% while on 2L oxymask. O2 increased to 4L, O2 sat increased to 90%
[2025-01-06] MEDS: Potassium Chloride/H20 10 MEQ/100 ML PIGGYBACK 100 MEQ IV ×4 (10:19→14:22)
[2025-01-06] MEDS: Dextrose 5 % and 0.45 % NaCl 1,000 ML 100 ML IVCONT (10:19)
--- NOTE | 2025-01-06 11:59 | MHC.CLN ---
CONSULT PT TO START PPN PER MD REVIEWED LABS DISCUSSED WITH PHARMACY RECOMMEND PPN AT 50 ML/HR TO PROVIDE 612KCALS, 120G DEXTROSE, 51G PROTEIN REPLETE LYTES NEEDED FULL NUTRITION ASSESSMENT TO FOLLOW
[2025-01-06] MEDS: Parenteral Nutrition 1,200 ML 50 ML IV (23:55)
[2025-01-07] VITALS (11 sets, daily range): BP systolic 117–136; BP diastolic 56–72; PULSE 66–110; RESP 18–24; TEMP 36.7–37.6; O2SAT 89–96; BMI 35.2
[2025-01-07 06:53] LABS: Hematocrit 34.6 % (42.0-52.0); Hemoglobin 11.2 g/dl (14.0-18.0); Mean Corpuscular HGB Conc 32.4 g/dl (31.0-36.0); Mean Corpuscular Hemoglobin 28.6 pg (27.0-33.0); Mean Corpuscular Volume 88.3 fL (80.0-98.0); NRBC Abs Auto 0.000 X10*3/uL (0.0-0.012); NRBC Pct Auto 0.0 /100WBC (0.0-0.2); Platelet Count 182 X10*3/uL (160-400); Red Blood Count 3.92 X10*6/uL (4.60-5.80); White Blood Count 11.6 X10*3/uL (4.8-10.8)
[2025-01-07 07:17] LABS: Anion Gap 13 (12-20); Blood Urea Nitrogen 11 mg/dL (9-16); Calcium 8.5 mg/dL (8.4-10.2); Carbon Dioxide 28 mmol/L (22-29); Chloride 106 mmol/L (96-108); Creatinine Clr Calc Pharmacy 116.2; Estimated Glomerular Filt Rate > 60; Magnesium 1.8 mg/dL (1.6-2.6); Potassium 3.5 mmol/L (3.3-5.1); Sodium 143 mmol/L (135-145)
[2025-01-07 07:36] LABS: Procalcitonin 0.33 ng/mL
[2025-01-07] MEDS: Albuterol/Iprat 2.5/0.5MG 3 ML AMPUL.NEB INHALE ×4 (08:14→20:13)
[2025-01-07 08:29] LABS: B Type Natriuretic Peptide 373 pg/mL (<100)
--- NOTE | 2025-01-07 10:51 | MHC.CLN ---
CONSULT TO START PPN REVIEWED LABS DISCUSSED WITH PHARMACY RECOMMEND INCREASING PPN TO 70ML/HR TO PROVIDE 857KCALS, 168G DEXTROSE, 71G PROTEIN (.9G/KG) REPLETE LYTES NEEDED SEE FULL CLINICAL NUTRITION ASSESSMENT
--- NOTE | 2025-01-07 11:18 | MHC.SLORD ---
Speech Language Pathology Order Status: Pt is currently NPO, RN consulted. Pt is minimally responsive, though he vocalized x2 during RN care. Pt remains congested, requiring frequent suctioning. Pt not safe to trial PO this morning, STRATEGIC PARTNERSHIP MANAGER to re-assess as indicated. Prognosis guarded for safe resumption of PO.
--- NOTE | 2025-01-07 11:41 | P.PNIM_ITS ---
Subjective Subjective Date of Service: 01/07/25 Interval History: awake but words are not intelligible on more O2, 4L now Review of Systems Review of Systems: Yes Unobtainable due to mental status Physical Exam 2 Vital Signs: Vital Signs: Last Vital Signs Temp 98.8 F 01/07/25 07:16 Pulse 84 01/07/25 11:25 Resp 24 H 01/07/25 11:25 BP 131/58 L 01/07/25 07:16 Pulse Ox 89 L 01/07/25 07:16 O2 Del Method Oxymask 01/07/25 07:16 O2 Flow Rate 4 01/07/25 07:16 FiO2 28 01/04/25 07:00 Oxygen Flow Rate 35 01/03/25 08:52 BMI result Body Mass Index 35.2 Gen: short of breath HEENT: sclera anicteric, moist mucus membranes Neck: supple Lungs: bilateral inspiratory wet crackles Heart: regular rate and rhythm, no murmurs Abd: soft, non-tender, non-distended Ext: no edema Skin: warm/well-perfused Neuro: non verbal, no focal weakness Psych: impaired insight Objective Data Active Medications Albuterol Sulfate (Albuterol Sulfate (0.083%) 2.5 Mg/3 Ml Vial.Neb) 2.5 mg INHALE Q2H PRN PRN Reason: Shortness of Breath/Wheezing Albuterol/Ipratropium (Albuterol/Iprat 2.5/0.5mg 3 Ml Ampul.Neb) 3 ml INHALE RQ4H WHILE AWAKE [facility] Last Admin: 01/07/25 11:22 Dose: 3 ml Documented By: DARNELL Ampicillin Sodium/Sulbactam Sodium (Ampicillin Sodium/Sulbactam Na 3 Gm Vial) 3 gm IV Q6H [facility] Last Admin: 01/07/25 10:31 Dose: 3 gm Documented By: SHAKIR Furosemide (Furosemide 40 Mg/4 Ml Vial) 40 mg IVPUSH DAILY [facility]; Protocol Heparin Sodium (Porcine) (Heparin Sodium,Porcine 5,000 Unit/Ml Vial) 5,000 unit SUBCUT Q8H [facility] Last Admin: 01/07/25 10:10 Dose: 5,000 unit Documented By: SHAKIR Dextrose/Sodium Chloride (D51/2ns) 1,000 mls @ 100 mls/hr IVCONT .Q10H [facility] On Hold: 01/07/25 04:18 Last Admin: 01/07/25 06:40 Dose: Not Given Documented By: HAIR Non-Admin Reason: on hold Nutrition (Parenteral) (Parenteral Nutrition) 1,200 mls @ 50 mls/hr IV .Q24H [facility]; Protocol Stop: 01/07/25 21:40 Last Admin: 01/06/25 23:55 Dose: 50 mls/hr Documented By: HAIR Nutrition (Parenteral) (Parenteral Nutrition) 1,680 mls @ 70 mls/hr IV .Q24H [facility]; Protocol Stop: 01/08/25 20:59 Methylprednisolone Sodium Succinate (Methylprednisolone Sod Succ 40 Mg/Ml Vial) 40 mg IVPUSH Q24H [facility] Last Admin: 01/07/25 10:31 Dose: 40 mg Documented By: SHAKIR Pharmacy Consult (Consult Rx Parenteral Nutrition Ordering) 1 each MISCELLANE DAILY PRN PRN Reason: Consult order Labs 01/07/25 06:14 01/07/25 06:14 Labs: Laboratory Results - last 24 hr 01/07/25 06:14 MCV 88.3 MCH 28.6 MCHC 32.4 RDW 13.4 Plt Count 182 MPV 12.1 Absolute Nucleated RBC 0.000 Nucleated RBC % (auto) 0.0 Anion Gap 13 Estim Creat Clear Calc 116.2 Estimated GFR > 60 Random Glucose 129 H Calcium 8.5 Phosphorus 2.7 Magnesium 1.8 B-Natriuretic Peptide 373 H Procalcitonin 0.33 Assessment and Plan (1) Aspiration pneumonia: Status: Acute Assessment and Plan: d5 for 84yo M resident of [facility] with advanced dementia admitted to ICU with hypoxic respiratory failure with distributive vs septic shock requiring HFNC and pressor support, stepped down to telemetry 01/04 acute hypoxic respiratory failure due to multifocal/aspiration pneumonia and COPD exacerbation - PCT improved, BCx negative, send RPP/MRSA/urinary antigens for Legionella and pneumococcus - 01/03- amp/sulbactam - NPO pending [employer]ANSIT [employer]ITY POLICE OFFICER re-evaluation [was not safe for PO trial 01/05], started PPN 01/06 - started methylprednisolone 01/06-, nebs - empiric diuresis with furosemide, check TTE and trend BNP - supplemental O2, wean as tolerated hypoK - repleted distributive vs septic shock - weaned off pressors, hold off on resuming metoprolol succinate + losartan for now and pt is NPO anyways advanced Alzhiemer dementia - holding off on donepezil and Depakote as pt is NPO VTE ppx - UFH dispo - eventual return to LTC In my clinical judgment, the patient requires continued inpatient hospitalization for the following reasons: hypoxia, NPO, IV ABX I updated pt's spouse/HCP Radha by phone. She is aware of his poor prognosis. MOLST reviewed and states DNR/DNI/no NIPPV/no HD/no HD/no feeding tube. If fails to improve to consider transition to comfort care. Total time managing care of this patient today: 40 minutes. Quality Stroke Does the patient have a stroke diagnosis?: No VTE Prior VTE?: No VTE Risk Level:: Medical - moderate - high VTE Device Contraindication: Treatment Not Indicated VTE Drug Contraindication: N/A - Med Ordered
[2025-01-07] MEDS: Furosemide 40 MG/4 ML VIAL IVPUSH (11:47)
--- NOTE | 2025-01-07 14:52 | MHC.CM.PN ---
EMR REVIEWED, PER MD NOTED PT MORE AWAKE, REMAINS ON 4L OF O2 AND NOW WEANED TO 3L NC, NO PLAN FOR DC AT THIS TIME, CM WILL CONT RO FOLLOW DC NEEDS.
[2025-01-07] MEDS: Parenteral Nutrition 1,680 ML 70 ML IV (22:48)
[2025-01-08] VITALS (9 sets, daily range): BP systolic 139–158; BP diastolic 64–78; PULSE 68–116; RESP 18–20; TEMP 36.6–37.2; O2SAT 90–96
[2025-01-08 06:41] LABS: Venous Blood Gas Refer to POC result
[2025-01-08 06:44] LABS: VBG HCO3 33 mmol/L (22-26); VBG O2 % Saturation 87.0 %
[2025-01-08 06:57] LABS: Alanine Aminotransferase 9 U/L (0-40); Albumin Level 3.4 g/dL (3.5-5.0); Alkaline Phosphatase 41 U/L (39-117); Anion Gap 13 (12-20); Aspartate Amino Transferase 19 U/L (5-37); Blood Urea Nitrogen 15 mg/dL (9-16); Calcium 8.9 mg/dL (8.4-10.2); Carbon Dioxide 29 mmol/L (22-29); Chloride 106 mmol/L (96-108); Creatinine Clr Calc Pharmacy 110.4; Estimated Glomerular Filt Rate > 60; Magnesium 2.0 mg/dL (1.6-2.6); Potassium 3.2 mmol/L (3.3-5.1); Sodium 145 mmol/L (135-145); Total Protein 6.3 g/dL (6.5-8.0); Triglycerides 76 mg/dL (<150)
--- NOTE | 2025-01-08 07:00 | CA_ITS ---
Transthoracic Echocardiogram Patient (Last, First, Middle): Alejandro Baig J Gender: Male Date of : 1940 Age: 84 Procedure Date: 01/08/2025 Procedure Type: Transthoracic Echocardiogram Location: [facility] Height: 177.8 cm Weight: 111.13 kg BSA: 2.28 m2 Heart Rate: bpm BP: 143 / 73 mmHg Lead Refinery Supervisor: SB Referring MD: Pina Bell MD Arboriculture Teacher: Abner Philip MD Symptoms: CHF Study Quality: Fair w Contrast ECG Rhythm: Undetermined Conclusions: - 1. Low normal LV ejection fraction of 50-55% with mild LVH 2. Mild aortic stenosis 3. Normal measured RV systolic pressure 4. Mildly dilated ascending aorta on some views Findings Procedure Information Contrast agent, definity, is being given per protocol without apparent complications. Left Ventricle The left ventricle was not well visualized. Normal left ventricular cavity size. There is mildly increased left ventricular wall thickness. The left ventricular systolic function is low normal. The visually estimated ejection fraction is between 50-55%. Diastolic function is indeterminate on the basis of available data. Right Ventricle The right ventricle was not well visualized. Atria The left atrium was not well visualized. Interatrial shunt cannot be excluded. The right atrium was not well visualized. Aortic Valve There is moderate calcification of the aortic valve. There is mild thickening of the aortic valve. There is mild aortic valve stenosis. There is no aortic valve regurgitation. Mitral Valve The mitral valve was not well visualized. There is mild anterior and posterior mitral leaflet thickening. There is mild mitral annular calcification. There is trace mitral valve regurgitation. There is no mitral valve stenosis. Pulmonic Valve The pulmonic valve was not well visualized. Tricuspid Valve The tricuspid valve was not well visualized. There is trace tricuspid valve regurgitation. The right ventricular systolic pressure is 34 mmHg. Normal right atrial pressure. There is no evidence of pulmonary hypertension. Great Vessels The aorta was not well visualized. The pulmonary artery was not well visualized. There is mild dilatation of the ascending aorta measuring 3.70 cm. Venous The inferior vena cava is normal in size and collapses greater than 50% with inspiration. Pericardium/Pleural The pericardium was not well visualized. Prior Study Comparison Changes noted compared to prior study dated: 11/10/2018. mild aortic stenosis is noted. LV function in his low normal Measurements 2D Linear Measurements IVSd: 1.38 0.6-0.9/0.6-1.0 cm LVIDd: 4.68 3.9-5.3/4.2-5.9 cm LVIDd Index: 2.05 2.4-3.2/2.2-3.1 cm/m2 LVIDs: 2.99 2.0-3.6 cm LVPWd: 1.30 0.7-1.1 cm LA Diam: 3.50 2.7-3.8/3.0-4.0 cm LAIDs Index: 1.54 1.5-2.3 cm/m2 LV Mass: 321.70 67-162/88-224 g LV Mass Index: 141.10 43-95/49-115 g/m2 LVOT Diam: 2.30 3.0+(-)1.3 cm 2D Systolic Function EF 4C: 52.00 >55% EF 2C: 52.20 >55% EF BiP: 51.50 >55% Mitral Valve MV Pk E: 1.04 MV PK A: 1.22 MV Decel Time: 292.00 E/A: 0.90 E'Lateral: 10.30 E'Medial: 5.44 E/E' Med: 19.10 E/E' Lat: 10.10 PHT: 86.00 MVA PHT: 2.56 Decel [place]: 3.58 Aortic Valve AoV Pk Allan: 2.43 AoV Mn Allan: 1.49 AoV VTI: 0.46 AoV Pk Grad: 24.00 Aov Mn Grad: 11.00 AGUSTIN Cont.VTI: 1.86 LVOT LVOT Pk Allan: 1.10 LVOT Mn Allan: 0.70 LVOT VTI: 0.21 LVOT Pk Grad: 5.00 LVOT Mn Grad: 2.00 LVOT Diam: 2.30 LVOT Area: 4.15 Diastolic Function MV Pk E: 1.04 MV Pk A: 1.22 E/A: 0.90 E'Medial: 5.44 E/E' Med: 19.10 E' Laterial: 10.30 E/E' Lat: 10.10 Tricuspid Valve TR Pk Allan: 2.78 TR Pk Grad: 31.00 RA Press: 3.00 RVSP: 34.00 Great Vessels Aorta Sinus of Valsalva: 3.70 2.0-3.5 cm Ao Asc: 3.70 2.1-3.4 cm Pulmonary Valve PV Pk Allan: 1.19 Peak PV Grad: 6.00 Updated in Other Vendor System with Status of Final Abner Philip MD electronically signed on 01/08/2025 11:51:52 AM with status of Final
[2025-01-08 07:02] LABS: B Type Natriuretic Peptide 450 pg/mL (<100)
[2025-01-08] MEDS: Albuterol/Iprat 2.5/0.5MG 3 ML AMPUL.NEB INHALE ×3 (07:37→19:37)
[2025-01-08] MEDS: Furosemide 40 MG/4 ML VIAL IVPUSH (09:41)
--- NOTE | 2025-01-08 10:47 | MHC.CLN ---
F/U PT REMAINS NPO REVIEWED LABS; NOTED TRIGS 76 DISCUSSED WITH PHARMACY RECOMMEND INCREASING PPN TO MAX GOAL RATE 90ML/HR WITH 94G LIPIDS TO PROVIDE 2042 TOTAL KCALS (27KCALS/KG), 216G DEXTROSE, 92G PROTEIN (1.2G/KG) REPLETE LYTES NEEDED
--- NOTE | 2025-01-08 10:55 | MHC.SL.SWA ---
Addendum entered and electronically signed by ROSIBEL Armenta 01/09/25 10:42: This clinician spoke to DIRECTOR OF SPORTS PERFORMANCE at [facility] who reports pt was not on modified diet prior to November 2024 hospitalization. Since d/c from [facility] Home has been providing dysphagia tx and has not been able to advance pt beyond NDD1/nectar thick. [facility] DIRECTOR OF SPORTS PERFORMANCE agrees w/ pt need for MBSS. Original Note: Risk of Aspiration Due to: recurrent aspiration PNA Dysphasia Diet Status: UPGRADE Liquid Consistency and Strategies for Safe Swallow: Liquid Intake Recommendation: Wood Thick Solid Food Consistency: Dietary Recommendations: Pureed (NDD1) Oral Medication Intake: Crushed with Puree Please contact the pharmacy regarding appropriate crushable or liquid drug formulations that are available whenever modified delivery is recommended. Compensatory Strategies and Precautions to be Taken for Safe Swallow: sit upright small bites/sips Supervision While Eating and Drinking for Safe Swallow: Total Assistance (1:1) Recommendation for Speech: Inpatient Speech Therapy Modified Barium Swallow Study - Inpatient Modified Barium Swallow Study - Outpatient Comment: Pt seen for clinical swallow evaluation at bedside. Recommend baseline diet of puree solids (NDD1) and nectar thick liquids. Meds crushed in puree. Awaiting call back from [facility] DIRECTOR OF SPORTS PERFORMANCE tx to determine potential need for MBSS (inpatient vs. outpatient) given recurrent aspiration PNA. Frequency/Duration: daily M-F, weekends recruiting consultant as needed Pulmonary Function Technologist Clinican/Clinical Fellow: No Supervisory Statement: I have reviewed and agree with the student/clinical fellow's documentation: N/A Speech Language Pathologist: Kari Marrero M.A., CCC-DIRECTOR OF SPORTS PERFORMANCE
--- NOTE | 2025-01-08 11:43 | P.PNIM_ITS ---
Subjective Subjective Date of Service: 01/08/25 Interval History: feeling better Physical Exam 2 Exam: Exam: alert, ill and frail appearing but no acute distress grossly weak, bilateral rhonchi Vital Signs: Vital Signs: Last Vital Signs Temp 98.6 F 01/08/25 10:58 Pulse 78 01/08/25 11:20 Resp 20 01/08/25 11:20 BP 150/70 H 01/08/25 10:58 Pulse Ox 93 01/08/25 10:58 O2 Del Method Nasal Cannula 01/08/25 10:58 O2 Flow Rate 4 01/08/25 10:58 FiO2 28 01/04/25 07:00 Oxygen Flow Rate 35 01/03/25 08:52 BMI result Body Mass Index 35.2 Objective Data Active Medications Albuterol Sulfate (Albuterol Sulfate (0.083%) 2.5 Mg/3 Ml Vial.Neb) 2.5 mg INHALE Q2H PRN PRN Reason: Shortness of Breath/Wheezing Albuterol/Ipratropium (Albuterol/Iprat 2.5/0.5mg 3 Ml Ampul.Neb) 3 ml INHALE RQ4H WHILE AWAKE [facility] Last Admin: 01/08/25 11:19 Dose: 3 ml Documented By: FAY Ampicillin Sodium/Sulbactam Sodium (Ampicillin Sodium/Sulbactam Na 3 Gm Vial) 3 gm IV Q6H [facility] Last Admin: 01/08/25 09:41 Dose: 3 gm Documented By: SHAKIR Furosemide (Furosemide 40 Mg/4 Ml Vial) 40 mg IVPUSH DAILY [facility]; Protocol Last Admin: 01/08/25 09:41 Dose: 40 mg Documented By: SHAKIR Heparin Sodium (Porcine) (Heparin Sodium,Porcine 5,000 Unit/Ml Vial) 5,000 unit SUBCUT Q8H [facility] Last Admin: 01/08/25 09:41 Dose: 5,000 unit Documented By: SHAKIR Dextrose/Sodium Chloride (D51/2ns) 1,000 mls @ 100 mls/hr IVCONT .Q10H [facility] On Hold: 01/07/25 04:18 Last Admin: 01/07/25 06:40 Dose: Not Given Documented By: HAIR Non-Admin Reason: on hold Nutrition (Parenteral) (Parenteral Nutrition) 1,680 mls @ 70 mls/hr IV .Q24H [facility]; Protocol Stop: 01/08/25 20:59 Last Admin: 01/07/25 22:48 Dose: 70 mls/hr Documented By: NOAH Nutrition (Parenteral) (Parenteral Nutrition) 2,160 mls @ 90 mls/hr IV .Q24H [facility]; Protocol Stop: 01/09/25 20:59 Methylprednisolone Sodium Succinate (Methylprednisolone Sod Succ 40 Mg/Ml Vial) 40 mg IVPUSH Q24H [facility] Last Admin: 01/08/25 09:41 Dose: 40 mg Documented By: SHAKIR Pharmacy Consult (Consult Rx Parenteral Nutrition Ordering) 1 each MISCELLANE DAILY PRN PRN Reason: Consult order Labs 01/07/25 06:14 01/08/25 06:34 Labs: Laboratory Results - last 24 hr 01/08/25 01/08/25 06:34 06:40 VBG pH 7.49 H VBG pCO2 44 VBG pO2 71 VBG HCO3 33 H VBG O2 Saturation 87.0 VBG Base Excess 9.4 Anion Gap 13 Estim Creat Clear Calc 110.4 Estimated GFR > 60 Random Glucose 101 Calcium 8.9 Phosphorus 3.1 Magnesium 2.0 Total Bilirubin 0.6 AST 19 ALT 9 Alkaline Phosphatase 41 B-Natriuretic Peptide 450 H Total Protein 6.3 L Albumin 3.4 L Triglycerides 76 Microbiology Microbiology Results: Microbiology 01/03/25 06:50 Blood Culture - Final Blood - Venous No growth after 5 days. 01/03/25 06:50 Blood Culture - Final Blood - Venous No growth after 5 days. Assessment and Plan (1) Alzheimer's dementia: Status: Acute Plan 84M PMH advanced alzheimers dementia admitted 01/03/25 for acute hypoxia and septic shock requiring high-flow and pressor support, downgraded 01/04/2025 Acute hypoxic respiratory failure and septic shock due to aspiration pneumonia and COPD with acute decompensation Continue Unasyn (started 01/03/2025) ELECTRONIC SCALE SUBASSEMBLER following - starting pureed with nectar thick, will dc tpn conitnue steroids, nebs eventuall MBSS echo lasix hypokalemia replaced Advanced Alzheimer's dementia Holding donepezil and Depakote DVT prophylaxis with heparin subQ DNR/DNI/DNIPPV reason for continued hospitalization:hypoxia Quality Stroke Does the patient have a stroke diagnosis?: No VTE Prior VTE?: No VTE Risk Level:: Medical - moderate - high VTE Device Contraindication: Treatment Not Indicated VTE Drug Contraindication: N/A - Med Ordered
--- NOTE | 2025-01-08 17:32 | MHC.SPEECHCO ---
MBSS completed 01/08/25, revealed severe oropharyngeal dysphagia. Oral phase severely impaired, with very poor bolus control, there was premature posterior escape, note significantly prolonged period of tongue pumping and delayed swallow. Patient trialed thin, nectar thick, honey thick, and puree consistencies. More advanced solids were withheld for safety d/t these impairments. Partial laryngeal elevation, with partial anterior hyoid excursion and partial, at times absent epiglottic inversion. There was no evidence of aspiration on this exam. Note significant amount of residue in the oral cavity and in the pharynx. Overall effective clearing of the pyriform with dry swallows. Patient had a more difficult time clearing the valleculae, partial clearing of the valleculae with dry swallows. No changes made to diet order. Recommend continue on PUREED (NDD1) diet and NECTAR THICK liquids (via teaspoon, or very small controlled cup sips), pills CRUSHED in PUREE. Give patient ample time to swallow and watch for pharyngeal elevation BEFORE giving more bites/sips. Cue patient between each bite/sip to elicit 1-2 dry swallows. If patient does not respond to verbal cue, present dry teaspoon to elicit reflexive swallow. Patient will need 1:1 assistance at feeding. Notified Dr. aHrman of findings via [facility] Message. Full report to follow.
[2025-01-08] MEDS: Parenteral Nutrition 2,160 ML 90 ML IV (22:41)
[2025-01-09] VITALS (10 sets, daily range): BP systolic 103–146; BP diastolic 56–89; PULSE 78–108; RESP 12–20; TEMP 36.2–37.1; O2SAT 93–95
[2025-01-09 07:00] LABS: Hematocrit 40.5 % (42.0-52.0); Hemoglobin 13.5 g/dl (14.0-18.0); Mean Corpuscular HGB Conc 33.3 g/dl (31.0-36.0); Mean Corpuscular Hemoglobin 29.1 pg (27.0-33.0); Mean Corpuscular Volume 87.3 fL (80.0-98.0); NRBC Abs Auto 0.000 X10*3/uL (0.0-0.012); NRBC Pct Auto 0.0 /100WBC (0.0-0.2); Platelet Count 255 X10*3/uL (160-400); Red Blood Count 4.64 X10*6/uL (4.60-5.80); White Blood Count 16.0 X10*3/uL (4.8-10.8)
[2025-01-09 07:11] LABS: Alanine Aminotransferase 13 U/L (0-40); Albumin Level 3.7 g/dL (3.5-5.0); Alkaline Phosphatase 47 U/L (39-117); Anion Gap 14 (12-20); Aspartate Amino Transferase 26 U/L (5-37); Blood Urea Nitrogen 23 mg/dL (9-16); Calcium 9.3 mg/dL (8.4-10.2); Carbon Dioxide 31 mmol/L (22-29); Chloride 103 mmol/L (96-108); Creatinine Clr Calc Pharmacy 116.2; Estimated Glomerular Filt Rate > 60; Magnesium 2.0 mg/dL (1.6-2.6); Potassium 3.3 mmol/L (3.3-5.1); Sodium 145 mmol/L (135-145); Total Protein 6.7 g/dL (6.5-8.0)
[2025-01-09] MEDS: Albuterol/Iprat 2.5/0.5MG 3 ML AMPUL.NEB INHALE ×4 (07:41→18:58)
[2025-01-09] MEDS: Furosemide 40 MG/4 ML VIAL IVPUSH (08:48)
--- NOTE | 2025-01-09 10:05 | MHC.SL.IMP ---
Date of Plan of Treatment: 01/08/25 Onset of Symptoms/Illness: 11/11/24 Date Treatment Started: 01/08/25 Admitting Diagnosis: Aspiration Pneumonia Primary Speech & Language Diagnosis: R13.12 Oropharyngeal Phase Dysphagia Reason for Today's Visit: 77243 Modified Barium Swallow Study Pre-evaluation Dietary Consistencies: Pureed (NDD1) Pre-evaluation Liquid Consistency: [place] Thick Pre-evaluation Medication Administration: Crushed with Puree Medical History: Modified Barium Swallow Study Fluoroscopic Evaluation of Swallowing Function CPT Code 01897 Evaluation Year: 2024 Reason for Study: Aspiration PNA Referring Physician: Frantz Harman MD Evaluating Clinician: Blanca Downing MA, [facility] Study Number: 1 Patient Name: Alejandro Baig Status: Inpatient, Stretcher Age: 84 Sex: Male Medical History Medical History (Updated 01/03/25 @ 08:15 by Jael Gaines MD) History of prostate cancer Aspiration pneumonia COPD exacerbation Current (pre-evaluation) Intake/Diet: Route: PO Diet Grade: Puree Liquid Consistencies: [place] Pre-Study Functional Oral Intake Scale (FOIS): 5- Total oral intake of multiple consistencies requiring special preparation Pain: None reported at time of study SUBJECTIVE: Patient is an 84 year old male admitted with acute hypoxic respiratory failure and septic shock d/t aspiration pneumonia and COPD with acute decompensation. Patient was admitted to the ICU on 01/03 requiring high-flow and pressor support, downgraded to the medical floor on 01/04. [facility] was consulted to evaluate for concern of recurrent aspiration PNA, but attempts were unsuccessful 01/05-01/07 d/t decreased responsiveness. Patient was eventually evaluated by [facility] at bedside on 01/08 and was started on a modified diet consisting of pureed (NDD1) solids and nectar thick liquids, which is patient?s reported baseline diet at his LTC facility ([facility]). [facility] [employer] recommended MBSS to further evaluate extent of dysphagia and provide feeding recommendations. Oral Motor Exam Mouth Occlusion: Normal Oral-Facial Teeth Characteristics: Edentulous Tongue Size: Normal Tongue Excursion Description: Incomplete Tongue Range of Movement Description: Reduced Tongue Speed of Movement Description: Reduced Tongue Movement Characteristics: Normal/Absent Food and Liquid Trials: Oral Impairment: Lip Closure: 1=Interlabial escape; no progression to anterior tip Oral Impairment: Tongue Control During Bolus Hold: 2=Posterior escape of less than half of bolus Oral Impairment: Bolus Preparation/Mastication: Did not test Oral Impairment: Bolus Transport/Lingual Motion: 3=Repetitive/disorganized tongue motion Oral Impairment: Oral Residue: 2=Residue collection on oral structures Oral Impairment:Initiation of Pharyngeal Swallow: 3=Bolus head in pyriforms Pharyngeal Impairment: Soft Palate Elevation: 0=No bolus between soft palate (SP)/pharyngeal wall (PW) Pharyngeal Impairment: Laryngeal Elevation: 1=Partial thyroid cartilage/arytenoids to epiglottic petiole movement Pharyngeal Impairment: Anterior Hyoid Excursion: 1=Partial anterior movement Pharyngeal Impairment: Epiglottic Movement: 2=No inversion Pharyngeal Impairment: Laryngeal Vestibular Closure:: 1=Incomplete: narrow column air/contrast in laryngeal vestibule Pharyngeal Impairment: Pharyngeal Stripping Wave: 1=Present: diminished Pharyngeal Impairment: Pharyngeal Contraction: Did not test Pharyngeal Impairment: Pharyngoesophageal Segment Opening: Did not test Pharyngeal Impairment: Tongue Base (TB) Retraction: 3=Wide column of contrast/air between TB and posterior PW Pharyngeal Impairment: Pharyngeal Residue: 2=Collection of residue within or on pharyngeal structures Pharyngeal Impairment: Esophageal Clearance Upright Position: Did not test Impressions and Recommendations OBJECTIVE: Time-out: performed at 14:15 Evaluation Start: 14:00; Stop: 14:10 Patient Positioning: Seated 70-90 degrees Viewing Planes: LATERAL ONLY Contrast: MBSImP? Standardized Protocol using commercially prepared, standardized Barium viscosities, including: Varibar? THIN LIQUID (40% w/v, <15 cps) , Varibar? NECTAR (40% w/v, <150-450 cps) , Varibar? THIN HONEY (40% w/v, <800-1800 cps) , Varibar? PUDDING (40% w/v, <3013-7930 cps) [facility] [id number] [facility] Results: Lip closure for intraoral bolus containment resulted in interlabial escape, without progression to the anterior lip. Tongue control during bolus hold resulted in posterior escape of less than half of the bolus. Bolus preparation and mastication received the highest impairment score; solid not given due to patient safety concerns related to oral impairment. Bolus transport/lingual motion was with repetitive/disorganized motion of the tongue. Oral residue was a collection on oral structures. Initiation of the pharyngeal swallow occurred when the bolus head was in the pyriform sinuses. Soft palate elevation resulted in no bolus between the soft palate and the pharyngeal wall. Laryngeal elevation was decreased, with partial superior movement of the thyroid cartilage/partial approximation of the arytenoids to the epiglottic petiole. Anterior hyoid excursion demonstrated partial anterior movement. Epiglottic movement resulted in no inversion. Laryngeal vestibular closure was incomplete, with a narrow column of air/contrast noted within the laryngeal vestibule at the height of the swallow. Pharyngeal stripping wave was present, but diminished. Pharyngeal contraction could not be determined due to logistical reasons not related to physiologic impairment. Pharyngoesophageal segment opening could not be assessed due to logistical reasons not related to physiologic impairment. Tongue base retraction allowed a wide column of contrast or air between the retracted tongue base and the posterior pharyngeal wall. Pharyngeal residue was a collection of residue within or on pharyngeal structures. Esophageal clearance in the upright position could not be assessed due to logistical reasons not related to physiologic impairment. Oral Impairment Score: 13 Pharyngeal Impairment Score: 11 (absence of score, component 13component 14) Esophageal Impairment Score: --- (absence of score, component 17) Laryngeal Penetration and Aspiration: Neither penetration nor aspiration was observed in today's study with Pudding-thick, Honey-thick, [place]-thick, Thin. ASSESSMENT: This exam was performed by the radiologist and the speech pathologist. Patient was seated upright in a stretcher for lateral view only. He was fed the following consistencies: Honey thick (via teaspoon) [place] thick (via teaspoon and controlled cup sips) Thin (via teaspoon) Puree (mixture applesauce w/ barium pudding) There was trace interlabial escape, but no anterior spillage beyond the vee border. Note very poor tongue control, with significantly delayed initiation of lingual movement and prolonged period of slowed tongue pumping movements, with contrast pooling to the floor of mouth. There was premature posterior escape, with contrast also spilling from the oral cavity and collecting in the valleculae and pyriforms. Significant oral residue seen post-swallow diffusely, in the floor of mouth, on the posterior tongue, and on the palate. Patient at times held the bolus in the oral cavity for an extended amount of time before initiating any movement. Pharyngeal swallow trigger was consistently delayed, but variable, at times initiated at the level of the valleculae and other times at the pyriforms. There was no evidence of nasopharyngeal reflux. Partial laryngeal elevation with partial to no epiglottic inversion. Laryngeal vestibular closure was incomplete, with narrow columm of air seen upon its closure. However, there was no evidence of tracheal aspiration or penetration on any consistencies during this exam. There was significant residue in the pharynx, especially in the valleculae. There was also residue on the tongue base, on the posterior pharyngeal wall, and in the pyriforms. Patient was able to reduce residuals with multiple dry swallows. The following compensatory strategies have not been used until today's study, but when employed, improved swallowing function: Additional Swallow(s) per Bolus decreased Oral Residue, Pharyngeal Residue Liquid Intake Recommendation: [place] Thick Liquid Intake Strategies: Small Sips, No Straws, Double Swallow Dietary Recommendations: Pureed (NDD1) Medication Administration: Crushed with Puree Please contact the pharmacy regarding appropriate crushable or liquid drug formulations that are available whenever modified delivery is recommended. Compensatory Strategies Recommended: Sitting Upright (90 deg), Double Swallow, No Straw, Liquids from Cup, Liquids from Spoon, Small Bites and Sips, Rate of Ingestion Change, Oral Check Supervision during eating and or drinking: Total Assistance (1:1) Recommended Treatments: Compens. Strategy Educat. Recommendation for Speech Therapy: Inpatient Speech Therapy Speech Therapy through Rehab Facility Text Comment: Intake Recommendations: Route: PO Diet Grade: Puree Liquid Consistencies: [place] Post-Study Functional Oral Intake Scale (FOIS): 5- Total oral intake of multiple consistencies requiring special preparation This exam revealed severe oropharyngeal dysphagia. Oral phase was severely impaired, with very poor bolus control, holding of bolus in the oral cavity intermittently, significantly delayed initiation, and maladaptive tongue pumping behavior. There was premature posterior escape with delayed swallow trigger. Patient trialed thin, nectar thick, honey thick, and puree consistencies. More advanced solids were withheld for safety d/t these impairments. Partial laryngeal elevation, with partial anterior hyoid excursion and partial, at times absent epiglottic inversion. Although laryngeal vestibular closure was incomplete, there was no evidence of tracheal penetration or aspiration on any consistency during this exam. Note significant amount of residue in the oral cavity and in the pharynx on all consistencies. Patient was verbally instructed to swallow again after each bite/sip. He at times responded to these verbal cues, other times, a dry spoon was presented in order to elicit a reflexive swallow. Often when cued to swallow again, patient began clearing his throat and coughing. Overall effective clearing of the pyriform with dry swallows. Patient had a more difficult time clearing the valleculae, note partial clearing of the valleculae with dry swallows. Limited trials of thin consistency, as patient fatigued at the end of the exam as trials progressed. Patient exhibited more difficulty managing thin consistency with increased spillage and more prolonged delays. No changes made to diet order at this time. Recommend continue on PUREED (NDD1) diet and NECTAR THICK liquids (via teaspoon, or very small controlled cup sips), pills CRUSHED in PUREE. Patient will need close monitoring and careful feeding: -Give patient ample time to swallow and watch for pharyngeal elevation BEFORE giving more bites/sips. -Cue patient between each bite/sip to elicit 1-2 dry swallows. If patient does not respond to verbal cue, present dry teaspoon to elicit reflexive swallow. -Ensure upright 90 degree position during PO intake and for at least 30-60 minutes AFTERWARDS -Maintain daily oral care routine Consider Rog[place] Free Water Protocol between meals only to promote hydration: Per protocol, patient to be permitted thin liquid (water only) between meals with strict aspiration precautions and RN or [facility] supervision. Oral care to be provided after meals/before presentation of water. Water to be given by teaspoon, with cues for volitional throat clear/ dry swallow after sip. Therapy Recommendations: Therapy will be continued daily M-F during hospitalization. Patient will need continued speech therapy for dysphagia treatment post-discharge at the next level of care. The following compensatory strategies and/or therapeutic exercises will be part of the upcoming therapy/management plan: Additional Swallow(s) per Bolus Care Home Goals: ? The patient will tolerate the least restrictive diet with a safe/efficient swallow to maintain adequate nutrition and hydration. ? The patient and/or family will participate in further education for swallowing goals. Short Term Goals: ? Diet - The patient will tolerate a pureed diet with nectar thick liquids without signs or symptoms of penetration/aspiration 100% of the time. - The patient will participate in therapeutic PO trials with the [facility]. ? Guidelines - The patient will comply with/recall the following guidelines/strategies 100% of the time with moderate cuing: [place]-thick Liquid, Bolus Volume Change, Rate of Ingestion Change, Additional Swallow(s) per Bolus, No Straws. ? Education - The patient, family, caregiver, nurse will verbalize/demonstrate understanding of the results of this evaluation, the above recommendations, and the swallowing guidelines. Frequency/Duration: M-F daily while inpatient Date Range for Service Requested: Timeline to reassess: PRN Clinician - Supplemental, Miscellaneous Communication: It is important to note MBSS objective studies are snapshots in time and Patient function might vary with factors such as time of day or concomitant medical conditions. For this reason, the final treatment plan for this patient should rest with their medical care team. Additional recommendations should be considered with the totality of the Patient in mind. Thank for the opportunity to participate in the care of this patient. If you have any questions about the content of this report, please contact the [facility] at [facility]. Education: Education regarding findings from today's study and plans for therapy were provided to Patient only through Verbal Instruction. Belt Picker Clinician/Clinical Fellow: No Supervisory Statement: N/A Speech Language Pathologist: Blanca Downing M.A., CCC-[facility]
--- NOTE | 2025-01-09 10:48 | MHC.CLN ---
F/U DIET ADVANCED TO PUREED WITH NT LIQ NO PO INTAKE RECORDED AT THIS TIME REVIEWED LABS DISCUSSED WITH PHARMACY CONTINUE PPN AT MAX GOAL RATE OF 90ML/HR WITH 94G LIPIDS TO PROVIDE 2042 TOTAL KCALS (27KCALS/KG), 216G DEXTROSE, 92G PROTEIN (1.2G/KG) REPLETE LYTES NEEDED WILL DECREASE TPN PO INTAKE IMPROVES
--- NOTE | 2025-01-09 11:05 | P.PNIM_ITS ---
Subjective Subjective Date of Service: 01/09/25 Interval History: very weak Physical Exam 2 Exam: Exam: alert, ill and frail appearing but no acute distress grossly weak, bilateral rhonchi Vital Signs: Vital Signs: Last Vital Signs Temp 97.2 F 01/09/25 07:38 Pulse 80 01/09/25 07:43 Resp 16 01/09/25 07:43 BP 139/89 01/09/25 07:38 Pulse Ox 94 01/09/25 07:38 O2 Del Method Nasal Cannula 01/09/25 07:38 O2 Flow Rate 4 01/09/25 07:38 FiO2 28 01/04/25 07:00 Oxygen Flow Rate 35 01/03/25 08:52 BMI result Body Mass Index 35.2 Objective Data Active Medications Albuterol Sulfate (Albuterol Sulfate (0.083%) 2.5 Mg/3 Ml Vial.Neb) 2.5 mg INHALE Q2H PRN PRN Reason: Shortness of Breath/Wheezing Albuterol/Ipratropium (Albuterol/Iprat 2.5/0.5mg 3 Ml Ampul.Neb) 3 ml INHALE RQ4H WHILE AWAKE TEJAL Last Admin: 01/09/25 07:41 Dose: 3 ml Documented By: CARLOS ENRIQUE Ampicillin Sodium/Sulbactam Sodium (Ampicillin Sodium/Sulbactam Na 3 Gm Vial) 3 gm IV Q6H TEJAL Last Admin: 01/09/25 08:48 Dose: 3 gm Documented By: RAYNA Furosemide (Furosemide 40 Mg/4 Ml Vial) 40 mg IVPUSH DAILY TEJAL; Protocol Last Admin: 01/09/25 08:48 Dose: 40 mg Documented By: RAYNA Heparin Sodium (Porcine) (Heparin Sodium,Porcine 5,000 Unit/Ml Vial) 5,000 unit SUBCUT Q8H TEJAL Last Admin: 01/09/25 08:48 Dose: 5,000 unit Documented By: RAYNA Dextrose/Sodium Chloride (D51/2ns) 1,000 mls @ 100 mls/hr IVCONT .Q10H TEJAL On Hold: 01/07/25 04:18 Last Admin: 01/07/25 06:40 Dose: Not Given Documented By: HAIR Non-Admin Reason: on hold Nutrition (Parenteral) (Parenteral Nutrition) 2,160 mls @ 90 mls/hr IV .Q24H [facility]; Protocol Stop: 01/09/25 20:59 Last Admin: 01/08/25 22:41 Dose: 90 mls/hr Documented By: NOAH Methylprednisolone Sodium Succinate (Methylprednisolone Sod Succ 40 Mg/Ml Vial) 40 mg IVPUSH Q24H [facility] Last Admin: 01/09/25 08:48 Dose: 40 mg Documented By: RAYNA Pharmacy Consult (Consult Rx Parenteral Nutrition Ordering) 1 each MISCELLANE DAILY PRN PRN Reason: Consult order Labs 01/09/25 06:10 01/09/25 06:10 Labs: Laboratory Results - last 24 hr 01/09/25 06:10 MCV 87.3 MCH 29.1 MCHC 33.3 RDW 13.7 Plt Count 255 D MPV 12.1 Absolute Nucleated RBC 0.000 Nucleated RBC % (auto) 0.0 Anion Gap 14 Estim Creat Clear Calc 116.2 Estimated GFR > 60 Random Glucose 104 Calcium 9.3 Phosphorus 4.1 Magnesium 2.0 Total Bilirubin 0.7 Direct Bilirubin 0.3 AST 26 ALT 13 Alkaline Phosphatase 47 Total Protein 6.7 Albumin 3.7 Microbiology Microbiology Results: Microbiology 01/03/25 06:50 Blood Culture - Final Blood - Venous No growth after 5 days. 01/03/25 06:50 Blood Culture - Final Blood - Venous No growth after 5 days. Assessment and Plan (1) Alzheimer's dementia: Status: Acute Plan 84M [facility] advanced alzheimers dementia admitted 01/03/25 for acute hypoxia and septic shock requiring high-flow and pressor support, downgraded 01/04/2025 Acute hypoxic respiratory failure and septic shock due to aspiration pneumonia and COPD with acute decompensation Continue Unasyn (started 01/03/2025) RN ALLERGY following s/p MBSS- recommending pureed with nectar thick, but overall intake very low continue steroids, nebs echo lasix hypokalemia replaced Advanced Alzheimer's dementia Holding donepezil and Depakote DVT prophylaxis with heparin subQ DNR/DNI/DNIPPV reason for continued hospitalization:hypoxia Quality Stroke Does the patient have a stroke diagnosis?: No VTE Prior VTE?: No VTE Risk Level:: Medical - moderate - high VTE Device Contraindication: Treatment Not Indicated VTE Drug Contraindication: N/A - Med Ordered
--- NOTE | 2025-01-09 11:58 | MHC.SLORD ---
Speech Language Pathology Order Status: Pt seen for dysphagia treatment. Pt lying in bed, open mouth breathing, open eyes. Pt's eye gaze shifted slightly when spoken to, but pt has been presenting with minimal responsiveness today per RN. No PO trials attempted. Pt had MBSS yesterday, no aspiration visualized. Recc NDD1 with NTL, 1:1 feeding, aspiration precautions, slow pacing, minimal amounts; feed only when pt alert to task. Suctioning provided by RN as needed.
--- NOTE | 2025-01-09 14:39 | MHC.CM.PN ---
EMR REVIEWED, PT REMAINS ON 4L O2 NC, PER SPEECH PT OKAY FOR PUREED AND NECTAR THICK LIQUIDS, HOWEVER PT UNABLE TO EAT D/T BEING MINIMALLY RESPONSIVE, NO PLAN FOR DC AT THIS TIME, CM WILL CONT TO FOLLOW DC NEEDS.
[2025-01-09] MEDS: Parenteral Nutrition 2,160 ML 90 ML IV (22:07)
[2025-01-10] VITALS (9 sets, daily range): BP systolic 121–160; BP diastolic 56–88; PULSE 58–120; RESP 16–18; TEMP 36.5–37; O2SAT 93–97
[2025-01-10 02:38] LABS: Strep Pneumo Ag urine Not Detected (Not Detected)
[2025-01-10 07:26] LABS: Alanine Aminotransferase 25 U/L (0-40); Albumin Level 3.6 g/dL (3.5-5.0); Alkaline Phosphatase 49 U/L (39-117); Anion Gap 13 (12-20); Aspartate Amino Transferase 22 U/L (5-37); Blood Urea Nitrogen 52 mg/dL (9-16); Calcium 9.5 mg/dL (8.4-10.2); Carbon Dioxide 30 mmol/L (22-29); Chloride 106 mmol/L (96-108); Creatinine Clr Calc Pharmacy 80.8; Estimated Glomerular Filt Rate > 60; Magnesium 2.3 mg/dL (1.6-2.6); Potassium 4.1 mmol/L (3.3-5.1); Sodium 145 mmol/L (135-145); Total Protein 6.6 g/dL (6.5-8.0)
[2025-01-10] MEDS: Albuterol/Iprat 2.5/0.5MG 3 ML AMPUL.NEB INHALE ×4 (08:06→18:49)
[2025-01-10] MEDS: Furosemide 40 MG/4 ML VIAL IVPUSH (08:18)
--- NOTE | 2025-01-10 09:34 | MHC.SL.SWA ---
Speech Pathologist Impression: Risk of Aspiration Due to: Lethargy Neurological Condition History of Pneumonia Reduced Cognition Dysphasia Diet Status: Recommend continue on Puree (NDD1) with NECTAR THICK liquids, pills crushed in puree. Patient requires 1-1 feeding, with adherence to specific strategies to ensure safety: -Give patient ample time to swallow and watch for pharyngeal elevation BEFORE giving more bites/sips. -Cue patient between each bite/sip to elicit 1-2 dry swallows. If patient does not respond to verbal cue, present dry teaspoon to elicit reflexive swallow. -Ensure upright 90 degree position during PO intake and for at least 30-60 minutes AFTERWARDS -Maintain daily oral care routine Liquid Consistency and Strategies for Safe Swallow: Liquid Intake Recommendation: [place] Thick Liquid Intake Strategies: Small Sips No Straws Double Swallow Solid Food Consistency: Dietary Recommendations: Pureed (NDD1) Additional Modifications to Solid Foods: Liquids by tsp or controlled cup sip of small sips only. Observed for swallow before presenting more food. Cue or elicit additional swallow verbally or by presenting dry spoon. Keep patient in upright position for 30-60 minutes after meals. Oral Medication Intake: Crushed with Puree Please contact the pharmacy regarding appropriate crushable or liquid drug formulations that are available whenever modified delivery is recommended. Compensatory Strategies and Precautions to be Taken for Safe Swallow: Sitting Upright (90 deg) Double Swallow No Straw Liquids from Cup Liquids from Spoon Small Bites and Sips Rate of Ingestion Change Oral Check Supervision While Eating and Drinking for Safe Swallow: Total Assistance (1:1) Foods to Avoid: Swallowing Recommended Treatments: Compens. Strategy Educat. Recommendation for Speech: Inpatient Speech Therapy Speech Therapy through Rehab Facility Comment: Patient seen for breakfast this a.m. Patient was awake, lying in bed in dark room, with breakfast tray at bedside with evidence that an attempt had previously been made to feed patient (food was uncovered, spoon on plate with trace amount of egg puree missing). Patient was invited to eat, which he agreed to (patient is markedly [place]). Seated upright in bed, patient ate bites of banana puree, pureed eggs and sips of nectar thick juice given by tsp. On both consistencies, delayed swallow noted, disorganized oral phase noted however patient generally managed consistencies well on this observation. On pureed egg, patient noted periodically to orally hold/pocket. Solids and NT Juice were alternated during meal. Patient consistently demonstrated swallow before aditional bite given, no evidence this morning of aspiration. Noted patient is still receiving enteric feeding. CASTING OPERATOR adjusted board with additional information from MBSS for strategies. y) between meals with strict aspiration precautions and RN or CASTING OPERATOR supervision. Oral care to be provided after meals/before presentation of water. Water to be given by teaspoon, with cues for volitional throat clear/ dry swallow after sip. Solderer Dipper Clinican/Clinical Fellow: No Supervisory Statement: I have reviewed and agree with the student/clinical fellow's documentation: N/A Speech Language Pathologist: Tiffanie Baron M.A., CCC-CASTING OPERATOR
--- NOTE | 2025-01-10 10:18 | HO.PM.IMPN ---
Subjective Subjective Date of Service: 01/10/25 Interval History: very weak Physical Exam Exam: Exam: alert, ill and frail appearing but no acute distress grossly weak, bilateral rhonchi Vital Signs: Vital Signs: Last Vital Signs Temp 97.7 F 01/10/25 07:12 Pulse 104 H 01/10/25 08:09 Resp 18 01/10/25 08:09 BP 147/68 H 01/10/25 07:12 Pulse Ox 94 01/10/25 07:12 O2 Del Method Nasal Cannula 01/10/25 07:12 O2 Flow Rate 4 01/10/25 07:12 FiO2 28 01/04/25 07:00 Oxygen Flow Rate 35 01/03/25 08:52 BMI result Body Mass Index 35.2 Objective Data Active Medications Albuterol Sulfate (Albuterol Sulfate (0.083%) 2.5 Mg/3 Ml Vial.Neb) 2.5 mg INHALE Q2H PRN PRN Reason: Shortness of Breath/Wheezing Albuterol/Ipratropium (Albuterol/Iprat 2.5/0.5mg 3 Ml Ampul.Neb) 3 ml INHALE RQ4H WHILE AWAKE TEJAL Last Admin: 01/10/25 08:06 Dose: 3 ml Documented By: RADHA Furosemide (Furosemide 40 Mg/4 Ml Vial) 40 mg IVPUSH DAILY TEJ[facility]; Protocol Last Admin: 01/10/25 08:18 Dose: 40 mg Documented By: ARYNA Guaifenesin/Codeine Phosphate (Guaifen/Codeine Sf 200/20/10ml 10 Ml Liquid) 5 ml PO Q6H PRN PRN Reason: Cough Heparin Sodium (Porcine) (Heparin Sodium,Porcine 5,000 Unit/Ml Vial) 5,000 unit SUBCUT Q8H [facility] Last Admin: 01/10/25 08:18 Dose: 5,000 unit Documented By: RAYNA Dextrose/Sodium Chloride (D51/2ns) 1,000 mls @ 100 mls/hr IVCONT .Q10H [facility] On Hold: 01/07/25 04:18 Last Admin: 01/07/25 06:40 Dose: Not Given Documented By: HAIR Non-Admin Reason: on hold Nutrition (Parenteral) (Parenteral Nutrition) 2,160 mls @ 90 mls/hr IV .Q24H TEJ[facility]; Protocol Stop: 01/10/25 20:59 Last Admin: 01/09/25 22:07 Dose: 90 mls/hr Documented By: MOLLY Ampicillin Sodium/Sulbactam (Sodium 3 gm/ Sodium Chloride) 100 mls @ 200 mls/hr IV Q6H [facility] Last Infusion: 01/10/25 04:01 Dose: Infused Documented By: MOLLY Methylprednisolone Sodium Succinate (Methylprednisolone Sod Succ 40 Mg/Ml Vial) 40 mg IVPUSH Q24H [facility] Last Admin: 01/10/25 08:18 Dose: 40 mg Documented By: RAYNA Pharmacy Consult (Consult Rx Parenteral Nutrition Ordering) 1 each MISCELLANE DAILY PRN PRN Reason: Consult order Labs 01/09/25 06:10 01/10/25 06:34 Labs: Laboratory Results - last 24 hr 01/07/25 01/10/25 12:00 06:34 Hold Purple Top SEE NOTE Anion Gap 13 Estim Creat Clear Calc 80.8 Estimated GFR > 60 Random Glucose 121 H Calcium 9.5 Phosphorus 4.9 H Magnesium 2.3 Total Bilirubin 0.5 AST 22 ALT 25 Alkaline Phosphatase 49 Total Protein 6.6 Albumin 3.6 Ur Strep pneumoniae Ag Not Detected Assessment and Plan (1) Alzheimer's dementia: Status: Acute Plan 84M PMH advanced alzheimers dementia admitted 01/03/25 for acute hypoxia and septic shock requiring high-flow and pressor support, downgraded 01/04/2025 Acute hypoxic respiratory failure and septic shock due to aspiration pneumonia and COPD with acute decompensation Continue Unasyn (started 01/03/2025) ACADEMIC SERVICES PROFESSIONAL following s/p MBSS- recommending pureed with nectar thick, but overall intake very low continue steroids, nebs hypokalemia replaced Advanced Alzheimer's dementia Holding donepezil and Depakote DVT prophylaxis with heparin subQ DNR/DNI/DNIPPV reason for continued hospitalization:hypoxia Quality Stroke Does the patient have a stroke diagnosis?: No VTE Prior VTE?: No VTE Risk Level:: Medical - moderate - high VTE Device Contraindication: Treatment Not Indicated VTE Drug Contraindication: N/A - Med Ordered
--- NOTE | 2025-01-10 10:37 | MHC.CLN ---
F/U DIET ADVANCED TO PUREED WITH NT LIQ TAKING BITES PER REGULATORY LAW SPECIALIST REVIEWED LABS DISCUSSED WITH PHARMACY CONTINUE PPN AT MAX GOAL RATE OF 90ML/HR WITH 94G LIPIDS TO PROVIDE 2042 TOTAL KCALS (27KCALS/KG), 216G DEXTROSE, 92G PROTEIN (1.2G/KG) REPLETE LYTES NEEDED WILL DECREASE TPN PO INTAKE IMPROVES STRICT PO INTAKE RECORDS
--- NOTE | 2025-01-10 17:41 | PC.NURSE ---
Notified provider regarding patient's left arm as swollen and blisters noted in the AC area, provider does not want any intervention at this time except to elevate on a pillow.
[2025-01-10] MEDS: Parenteral Nutrition 2,160 ML 90 ML IV (22:36)
[2025-01-11] VITALS (11 sets, daily range): BP systolic 115–151; BP diastolic 58–88; PULSE 76–104; RESP 16–20; TEMP 36.3–36.8; O2SAT 92–99
[2025-01-11] MEDS: Albuterol/Iprat 2.5/0.5MG 3 ML AMPUL.NEB INHALE ×4 (07:49→18:49)
[2025-01-11 08:13] LABS: Hematocrit 38.4 % (42.0-52.0); Hemoglobin 12.3 g/dl (14.0-18.0); Mean Corpuscular HGB Conc 32.0 g/dl (31.0-36.0); Mean Corpuscular Hemoglobin 29.1 pg (27.0-33.0); Mean Corpuscular Volume 91.0 fL (80.0-98.0); NRBC Abs Auto 0.000 X10*3/uL (0.0-0.012); NRBC Pct Auto 0.0 /100WBC (0.0-0.2); Platelet Count 260 X10*3/uL (160-400); Red Blood Count 4.22 X10*6/uL (4.60-5.80); White Blood Count 16.6 X10*3/uL (4.8-10.8)
[2025-01-11 08:57] LABS: Alanine Aminotransferase 34 U/L (0-40); Albumin Level 3.2 g/dL (3.5-5.0); Alkaline Phosphatase 43 U/L (39-117); Anion Gap 12 (12-20); Aspartate Amino Transferase 32 U/L (5-37); Blood Urea Nitrogen 37 mg/dL (9-16); Calcium 9.0 mg/dL (8.4-10.2); Carbon Dioxide 32 mmol/L (22-29); Chloride 106 mmol/L (96-108); Creatinine Clr Calc Pharmacy 112.3; Estimated Glomerular Filt Rate > 60; Magnesium 2.2 mg/dL (1.6-2.6); Potassium 4.6 mmol/L (3.3-5.1); Sodium 145 mmol/L (135-145); Total Protein 6.2 g/dL (6.5-8.0)
--- NOTE | 2025-01-11 10:27 | HO.PM.IMPN ---
Subjective Subjective Date of Service: 01/11/25 Interval History: very weak Physical Exam Exam: Exam: alert, ill and frail appearing but no acute distress grossly weak, bilateral rhonchi Vital Signs: Vital Signs: Last Vital Signs Temp 97.7 F 01/11/25 07:12 Pulse 99 01/11/25 07:57 Resp 18 01/11/25 07:57 BP 115/61 01/11/25 07:12 Pulse Ox 98 01/11/25 07:12 O2 Del Method Nasal Cannula 01/11/25 07:12 O2 Flow Rate 4 01/11/25 07:12 FiO2 28 01/04/25 07:00 Oxygen Flow Rate 35 01/03/25 08:52 BMI result Body Mass Index 35.2 Objective Data Active Medications Albuterol Sulfate (Albuterol Sulfate (0.083%) 2.5 Mg/3 Ml Vial.Neb) 2.5 mg INHALE Q2H PRN PRN Reason: Shortness of Breath/Wheezing Albuterol/Ipratropium (Albuterol/Iprat 2.5/0.5mg 3 Ml Ampul.Neb) 3 ml INHALE RQ4H WHILE AWAKE [facility] Last Admin: 01/11/25 07:49 Dose: 3 ml Documented By: RADHA Guaifenesin/Codeine Phosphate (Guaifen/Codeine Sf 200/20/10ml 10 Ml Liquid) 5 ml PO Q6H PRN PRN Reason: Cough Heparin Sodium (Porcine) (Heparin Sodium,Porcine 5,000 Unit/Ml Vial) 5,000 unit SUBCUT Q8H [facility] Last Admin: 01/11/25 09:14 Dose: 5,000 unit Documented By: YOSHI Dextrose/Sodium Chloride (D51/2ns) 1,000 mls @ 100 mls/hr IVCONT .Q10H [facility] On Hold: 01/07/25 04:18 Last Admin: 01/07/25 06:40 Dose: Not Given Documented By: HAIR Non-Admin Reason: on hold Ampicillin Sodium/Sulbactam (Sodium 3 gm/ Sodium Chloride) 100 mls @ 200 mls/hr IV Q6H [facility] Last Infusion: 01/11/25 10:08 Dose: Infused Documented By: YOSHI Nutrition (Parenteral) (Parenteral Nutrition) 2,160 mls @ 90 mls/hr IV .Q24H [facility]; Protocol Stop: 01/11/25 20:59 Last Admin: 01/10/25 22:36 Dose: 90 mls/hr Documented By: JORGE A Methylprednisolone Sodium Succinate (Methylprednisolone Sod Succ 40 Mg/Ml Vial) 40 mg IVPUSH Q24H [facility] Last Admin: 01/11/25 09:14 Dose: 40 mg Documented By: YOSHI Pharmacy Consult (Consult Rx Parenteral Nutrition Ordering) 1 each MISCELLANE DAILY PRN PRN Reason: Consult order Labs 01/11/25 07:49 01/11/25 07:49 Labs: Laboratory Results - last 24 hr 01/11/25 07:49 MCV 91.0 MCH 29.1 MCHC 32.0 RDW 14.0 Plt Count 260 MPV 12.2 Absolute Nucleated RBC 0.000 Nucleated RBC % (auto) 0.0 Anion Gap 12 Estim Creat Clear Calc 112.3 Estimated GFR > 60 Random Glucose 101 Calcium 9.0 Phosphorus 2.5 L Magnesium 2.2 Total Bilirubin 0.4 AST 32 ALT 34 Alkaline Phosphatase 43 Total Protein 6.2 L Albumin 3.2 L Assessment and Plan (1) Alzheimer's dementia: Status: Acute Plan 84M PMH advanced alzheimers dementia admitted 01/03/25 for acute hypoxia and septic shock requiring high-flow and pressor support, downgraded 01/04/2025 Acute hypoxic respiratory failure and septic shock due to aspiration pneumonia and COPD with acute decompensation Continue Unasyn (started 01/03/2025) DIRECTOR OF STRATEGIC COMMUNICATIONS following s/p MBSS- recommending pureed with nectar thick, but overall intake very low continue steroids, nebs hypokalemia replaced Advanced Alzheimer's dementia Holding donepezil and Depakote DVT prophylaxis with heparin subQ DNR/DNI/DNIPPV dispo - if no improvement in intake, likely hospice at snf reason for continued hospitalization:hypoxia Quality Stroke Does the patient have a stroke diagnosis?: No VTE Prior VTE?: No VTE Risk Level:: Medical - moderate - high VTE Device Contraindication: Treatment Not Indicated VTE Drug Contraindication: N/A - Med Ordered
--- NOTE | 2025-01-11 10:46 | MHC.CLN ---
F/U PO INTAKE 25% X1 MEAL DIET ADVANCED TO PUREED WITH NT LIQ REVIEWED LABS DISCUSSED WITH PHARMACY CONTINUE PPN AT MAX GOAL RATE OF 90ML/HR WITH 94G LIPIDS TO PROVIDE 2042 TOTAL KCALS (27KCALS/KG), 216G DEXTROSE, 92G PROTEIN (1.2G/KG) REPLETE LYTES NEEDED WILL DECREASE TPN PO INTAKE IMPROVES STRICT PO INTAKE RECORDS
--- NOTE | 2025-01-11 11:07 | MHC.SL.SWA ---
Speech Pathologist Impression: Risk of Aspiration, Severe Oropharyngeal Dysphagia Risk of Aspiration Due to: Lethargy Neurological Condition History of Pneumonia Reduced Cognition Dysphasia Diet Status: Recommend continue on Puree (NDD1) with NECTAR THICK liquids, pills crushed in puree. Patient requires 1-1 feeding, with adherence to specific strategies to ensure safety: Patient will need close monitoring and careful feeding: -Give patient ample time to swallow and watch for pharyngeal elevation BEFORE giving more bites/sips. -Cue patient between each bite/sip to elicit 1-2 dry swallows. If patient does not respond to verbal cue, present dry teaspoon to elicit reflexive swallow. -Ensure upright 90 degree position during PO intake and for at least 30-60 minutes AFTERWARDS -Maintain daily oral care routine Liquid Consistency and Strategies for Safe Swallow: Liquid Intake Recommendation: Thrall Thick Liquid Intake Strategies: Small Sips No Straws Double Swallow Solid Food Consistency: Dietary Recommendations: Pureed (NDD1) Additional Modifications to Solid Foods: Liquids by tsp or controlled cup sip of small sips only. Observed for swallow before presenting more food. Cue or elicit additional swallow verbally or by presenting dry spoon. Keep patient in upright position for 30-60 minutes after meals. Oral Medication Intake: Crushed with Puree Please contact the pharmacy regarding appropriate crushable or liquid drug formulations that are available whenever modified delivery is recommended. Compensatory Strategies and Precautions to be Taken for Safe Swallow: Sitting Upright (90 deg) Double Swallow No Straw Liquids from Cup Liquids from Spoon Small Bites and Sips Rate of Ingestion Change Oral Check Supervision While Eating and Drinking for Safe Swallow: Total Assistance (1:1) Swallowing Recommended Treatments: Compens. Strategy Educat. Recommendation for Speech: Inpatient Speech Therapy Speech Therapy through Rehab Facility Comment: Intake Recommendations: Route: PO Diet Grade: Puree Liquid Consistencies: Thrall Post-Study Functional Oral Intake Scale (FOIS): 5- Total oral intake of multiple consistencies requiring special preparation Business Support Administrator Goals: ? The patient will tolerate the least restrictive diet with a safe/efficient swallow to maintain adequate nutrition and hydration. ? The patient and/or family will participate in further education for swallowing goals. Short Term Goals: ? Diet - The patient will tolerate a pureed diet with nectar thick liquids without signs or symptoms of penetration/aspiration 100% of the time. - The patient will participate in therapeutic PO trials with the WIND TUNNEL ENGINEER. ? Guidelines - The patient will comply with/recall the following guidelines/strategies 100% of the time with moderate cuing: Thrall-thick Liquid, Bolus Volume Change, Rate of Ingestion Change, Additional Swallow(s) per Bolus, No Straws. ? Education - The patient, family, caregiver, nurse will verbalize/demonstrate understanding of the results of this evaluation, the above recommendations, and the swallowing guidelines. Frequency/Duration: M-F daily while inpatient Date Range for Service Req: Timeline to reassess: PRN Business Technology Analyst Clinican/Clinical Fellow: No Supervisory Statement: I have reviewed and agree with the student/clinical fellow's documentation: N/A Speech Language Pathologist: Blanca Downing M.A., CCC-WIND TUNNEL ENGINEER
--- NOTE | 2025-01-11 14:30 | MHC.CM.PN ---
EMR reviewed and per MD rounds, pt it not medically cleared for discharge due to management of aspiration pneumonia and COPD.
[2025-01-11] MEDS: Parenteral Nutrition 2,160 ML 90 ML IV (22:02)
[2025-01-12 04:00] VITALS: BP 110/47; PULSE 82; RESP 20; TEMP 36.5; O2SAT 99
[2025-01-12 07:04] VITALS: BP 113/60; PULSE 81; RESP 18; TEMP 36.2; O2SAT 95
[2025-01-12 07:32] LABS: Alanine Aminotransferase 35 U/L (0-40); Albumin Level 3.1 g/dL (3.5-5.0); Alkaline Phosphatase 46 U/L (39-117); Anion Gap 11 (12-20); Aspartate Amino Transferase 23 U/L (5-37); Blood Urea Nitrogen 25 mg/dL (9-16); Calcium 8.9 mg/dL (8.4-10.2); Carbon Dioxide 32 mmol/L (22-29); Chloride 103 mmol/L (96-108); Creatinine Clr Calc Pharmacy 120.4; Estimated Glomerular Filt Rate > 60; Magnesium 1.9 mg/dL (1.6-2.6); Potassium 4.2 mmol/L (3.3-5.1); Sodium 142 mmol/L (135-145); Total Protein 6.0 g/dL (6.5-8.0)
[2025-01-12 07:42] VITALS: PULSE 87; RESP 18; O2SAT 96
[2025-01-12] MEDS: Albuterol/Iprat 2.5/0.5MG 3 ML AMPUL.NEB INHALE ×2 (07:42→11:21)
--- NOTE | 2025-01-12 10:34 | P.DS_ITS ---
DS: Providers Provider Date of Service: 01/12/25 Date of admission: 01/03/25 08:52 Date of discharge: 01/12/25 Primary care physician: Jeremie Figueroa MD Consults: 01/12/25 02:27 Consult to Wound Care Routine Reason for consultation: Left AC/upper arm blisters/open and fluid filled DS: Diagnosis Discharge Diagnosis (1) Alzheimer's dementia: Status: Acute DS: Summary Hospital Course Hospital Course: from initial hpi: 84-year-old gentleman with underlying history of hypertension, COPD, CHF, senior living resident in DNR/DNI/do not apply noninvasive positive pressure ventilation code status presented on 01/03/2025 from [facility] with hypoxia and respiratory distress secondary to ongoing aspiration. Patient required high- flow nasal cannula to maintain normal oximetry. He also has developed hypotension requiring pressor support and was admitted to the intensive care unit. hospital course: Patient was admitted for acute hypoxic respiratory failure and septic shock due to aspiration pneumonia requiring high-flow oxygen and pressor support to the intensive care unit. He was quickly weaned off vasopressors and oxygen decreased and downgraded to medical floor with the next day. He was treated with IV steroids, Unasyn. Oxygen requirements have decreased to 4 L/min. Due to dysphagia was seen by speech who performed modified barium and recommended pureed solids with nectar thick liquids, however patient has had minimal intake. For hypokalemia received replacement. For advanced Alzheimer's dementia meds initially held can be restarted as outpatient. Goals of care discussion was had with patient's healthcare proxy, Radha lawrence. Plan to discharge back to long-term care with 5 more days of Augmentin, continue aspiration precautions and modified diet but we will continue DNR DNI status and change to a do not transfer to hospital. Have discontinued statin as unlikely to benefit. Time Attestation Discharge Coordination Time (in mins): 37 Quality: Safe Use of Opioids Does Pt have an Active Cancer Diagnosis on the Problem List?: No Quality: Stroke Does the patient have a stroke diagnosis?: No Physical Exam Exam: Exam: alert, ill and frail appearing but no acute distress grossly weak, bilateral rhonchi Vital Signs: Vital Signs: Last Vital Signs Temp 97.2 F 01/12/25 07:04 Pulse 87 01/12/25 07:42 Resp 18 01/12/25 07:42 BP 113/60 01/12/25 07:04 Pulse Ox 95 01/12/25 07:04 O2 Del Method Nasal Cannula 01/12/25 07:04 O2 Flow Rate 3 01/12/25 04:00 FiO2 28 01/04/25 07:00 Oxygen Flow Rate 35 01/03/25 08:52 BMI result Body Mass Index 35.2 DS: Data Data Completed and Pending Labs on day of discharge: Laboratory Results - last 24 hr 01/07/25 01/12/25 01/12/25 12:00 06:45 06:48 Hold Purple Top SEE NOTE Sodium 142 Potassium 4.2 Chloride 103 Carbon Dioxide 32 H Anion Gap 11 L BUN 25 H Creatinine 0.55 Estim Creat Clear Calc 120.4 Estimated GFR > 60 Random Glucose 91 Calcium 8.9 Phosphorus 3.3 Magnesium 1.9 Total Bilirubin 0.6 AST 23 ALT 35 Alkaline Phosphatase 46 Total Protein 6.0 L Albumin 3.1 L Ur L.pneumophila Ag Not Detected Discharge Plan Discharge Anticipated Discharge Date/Time: 01/12/25 10:31 Patient Disposition: Xfer [facility] Discharge Diagnosis: pna Referrals: Jeremie Figueroa MD [Primary Care Provider, Internal Medicine] - 1 Week Discharge Medications: New amoxicillin-pot clavulanate 875-125 mg tablet 1 tab PO BID Qty: 10 0RF Continued donepezil 5 mg tablet 5 mg PO BEDTIME famotidine 40 mg tablet 40 mg PO BEDTIME cyanocobalamin (vitamin B-12) 1,000 mcg Tablet 500 mcg PO DAILY melatonin 3 mg Tablet 6 mg PO BEDTIME aspirin 81 mg Tablet,Chewable 81 mg PO DAILY fluticasone propionate 50 mcg/actuation [place],Suspension 1 spray INTRANASAL DAILY Rx Instructions: administer into each nostril divalproex 125 mg capsule, delayed rel sprinkle 125 mg PO BID cholecalciferol (vitamin D3) 25 mcg (1,000 unit) Tablet 25 mcg PO DAILY acetaminophen 325 mg Tablet 650 mg PO Q4H MDD 3gm/24h PRN (Reason: Fever Or Pain) albuterol sulfate 2.5 mg /3 mL (0.083 %) Solution For Nebulization 2.5 mg INHALATION Q4H PRN (Reason: Shortness Of Breath Or Wheezing) Nizoral A-D 1 % Shampoo 1 appl TOPICAL WE Rx Instructions: apply to scalp sennosides [senna] 8.6 mg Tablet 17.2 mg PO BID PRN (Reason: Constipation) Rx Instructions: for BM in 3 days guaifenesin 100 mg/5 mL Liquid 300 mg PO QID PRN (Reason: Cough) triamcinolone acetonide 0.1 % cream 1 appl topical BID PRN (Reason: Rash) Rx Instructions: rash on legs and feet ammonium lactate 12 % Cream 1 appl TOPICAL BID PRN (Reason: Dry Skin) loratadine 10 mg Tablet 10 mg PO DAILY PRN (Reason: Allergy Symptoms) finasteride 5 mg tablet 5 mg PO DAILY Discontinued metoprolol succinate 50 mg tablet extended release 24 hr 50 mg PO DAILY simvastatin 40 mg tablet 1 tab PO DAILY losartan 25 mg tablet 25 mg PO DAILY Protocol: Hold for SBP< HOLD for SBP < : 100 gabapentin 100 mg capsule 100 mg PO BID Discharge Orders: Discharge Order (Routine); Ordered 01/12/25 Ordered By: Frantz Harman Diet: pureed, nectar thick Activity on Discharge: As tolerated Stand Alone Forms: Patient Portal Discharge page Print Language: Greek Care Plan Goals: end of life care Health Concerns: aspiration Plan of Treatment: 5 more days augmentin aspiration precautions pureed solids, nectar thick liquids advanced directives change to do not transfer to hospital Assessment: see above
[2025-01-12 11:11] VITALS: BP 127/65; PULSE 78; RESP 17; TEMP 36.1; O2SAT 96
[2025-01-12 11:24] VITALS: PULSE 82; RESP 24; O2SAT 100
--- NOTE | 2025-01-12 11:28 | MHC.CM.PN ---
Per MD, patient medically cleared for dc back to [facility]. BLS transport schedueld for 2pm. RN and /HCP aware. MD completed new MOLST with /HCP, indicating no transfer to hospital. 's Home RN Lamar aware of dc, transport time, and updated MOLST. IMM delivered.
== END 2025-01-12 14:40 | disposition skilled nursing facility (03) | DRG 871 ==
LOC: HO.ED 08:15 → HO.EDOVER 08:56 → HO.ICU 09:08 → HO.IMC 01-04 14:55
PROVIDERS: Family Medicine; Admitting Provider Internal Medicine Pulmonary Disease; Emergency Provider Emergency Medicine; PCP Internal Medicine; Visit Provider Internal Medicine
DX: A41.9 Sepsis, unspecified organism (principal); J69.0 Pneumonitis due to inhalation of food and vomit; J96.01 Acute respiratory failure with hypoxia; R65.21 Severe sepsis with septic shock; J44.1 Chronic obstructive pulmonary disease with (acute) exacerbation; G30.9 Alzheimer's disease, unspecified; F02.80 Dementia in other diseases classified elsewhere, unspecified severity, without behavioral disturbance, psychotic disturbance, mood disturbance, and anxiety; E87.6 Hypokalemia; Z66 Do not resuscitate; Z20.822 Contact with and (suspected) exposure to COVID-19; Z79.82 Long term (current) use of aspirin; Z79.899 Other long term (current) drug therapy
CPT/HCPCS: 36415; 71045; 74230; 80048; 80053; 81001; 82040; 82248; 82803; 83605; 83735; 83880; 84100; 84145; 84478; 84484; 85025; 85027; 87040; 87449; 87637; 87899; 92526; 92610; 92611; 93005; 93306; 94640; 99285; J0295; J1644; J1938; J2543; J2919; J3373; J3480; P9047; Q9957

== ENCOUNTER → 2025-01-03 06:38 | Outpatient (BNV) | payer MEDICARE, OTHER, SELFPAY | PROVIDERS: Admitting Provider Internal Medicine Pulmonary Disease; Emergency Provider Emergency Medicine; Visit Provider Internal Medicine Cardiovascular Disease | DX: I44.0 Atrioventricular block, first degree (principal); R00.0 Tachycardia, unspecified | CPT/HCPCS: 93010 ==

== ENCOUNTER → 2025-01-03 06:43 | Outpatient (BNV) | payer MEDICARE, OTHER, SELFPAY | PROVIDERS: Admitting Provider Internal Medicine Pulmonary Disease; Emergency Provider Emergency Medicine; Visit Provider Radiology Diagnostic Radiology | DX: R06.00 Dyspnea, unspecified (principal) | CPT/HCPCS: 71045 ==

== ENCOUNTER 2025-01-03 08:52 | Outpatient (BNV) | payer MEDICARE, OTHER, SELFPAY | END 2025-01-07 08:10 | PROVIDERS: Admitting Provider Internal Medicine Pulmonary Disease; Emergency Provider Emergency Medicine; Visit Provider Radiology Diagnostic Radiology | DX: R91.8 Other nonspecific abnormal finding of lung field (principal) | CPT/HCPCS: 71045 ==

== ENCOUNTER 2025-01-03 08:52 | Outpatient (BNV) | payer MEDICARE, OTHER, SELFPAY | END 2025-01-08 12:17 | PROVIDERS: Admitting Provider Internal Medicine Pulmonary Disease; Emergency Provider Emergency Medicine; PCP Internal Medicine; Visit Provider Radiology Diagnostic Radiology | DX: R13.11 Dysphagia, oral phase (principal) | CPT/HCPCS: 74230 ==

== ENCOUNTER 2025-01-03 08:52 | Outpatient (BNV) | payer MEDICARE, OTHER, SELFPAY | END 2025-01-08 07:00 | PROVIDERS: Admitting Provider Internal Medicine Pulmonary Disease; Emergency Provider Emergency Medicine; PCP Internal Medicine; Visit Provider Internal Medicine Cardiovascular Disease | DX: I35.0 Nonrheumatic aortic (valve) stenosis (principal); I34.81 Nonrheumatic mitral (valve) annulus calcification | CPT/HCPCS: 93306 ==

== ENCOUNTER → 2025-01-03 08:52 | Outpatient (BNV) | payer MEDICARE, OTHER, SELFPAY | PROVIDERS: Admitting Provider Internal Medicine Pulmonary Disease; Emergency Provider Emergency Medicine; Visit Provider Internal Medicine Pulmonary Disease | DX: J69.0 Pneumonitis due to inhalation of food and vomit (principal); J96.01 Acute respiratory failure with hypoxia; G30.9 Alzheimer's disease, unspecified; F02.80 Dementia in other diseases classified elsewhere, unspecified severity, without behavioral disturbance, psychotic disturbance, mood disturbance, and anxiety | CPT/HCPCS: 99291 ==

== ENCOUNTER → 2025-01-03 08:52 | Outpatient (BNV) | payer MEDICARE, OTHER, SELFPAY | PROVIDERS: Admitting Provider Internal Medicine Pulmonary Disease; Emergency Provider Emergency Medicine; Visit Provider Family Medicine | DX: J69.0 Pneumonitis due to inhalation of food and vomit (principal) | CPT/HCPCS: 99232; 99233 ==